=== PATIENT | female | born 1955 | race Caucasian/White ===

== ENCOUNTER 2022-04-30 07:23 | Outpatient (CLI) | payer BC, SELFPAY ==
[2022-04-30 10:29] LABS: Albumin* 4.3 g/dL (3.3-5.0); Chloride* 99 mmol/L (96-114); Potassium* 4.2 mmol/L (3.6-5.1); Sodium* 139 mmol/L (135-149)
[2022-04-30 10:32] LABS: Blood Urea Nitrogen* 20 mg/dL (7-30); Carbon Dioxide* 31 mmol/L (20-32); Estimated Glomerular Filt Rate 62 ml/min; Glucose* 106 mg/dL (60-115)
[2022-04-30 10:33] LABS: Calcium* 9.4 mg/dL (8.4-10.6); Phosphorus* 4.1 mg/dL (2.5-4.5); Uric Acid* 6.6 mg/dL (2.2-8.4)
[2022-04-30 10:34] LABS: Creatinine Urine 182.8 mg/dL
[2022-04-30 10:39] LABS: Microalbumin Creatinine Ratio 20 mg/g (0-30); Microalbumin Urine 4 mg/dL
== END 2022-04-30 07:24 | disposition home or self-care (01) ==
PROVIDERS: PCP Internal Medicine; Visit Provider Internal Medicine Nephrology
DX: N18.1 Chronic kidney disease, stage 1 (principal); I10 Essential (primary) hypertension
CPT/HCPCS: 80069; 82043; 82570; 84550

== ENCOUNTER 2022-05-13 16:31 | Outpatient (CLI) | payer BC, SELFPAY ==
--- OUTSIDE RECORDS SUMMARY | 2022-05-13 16:37 | XMS_ITS | Encounter Summary ---
:1955 Author Organization [facility] Address [address], [place] [address] Care Team Providers Name Role Phone Souleymane Dangelo MD Primary Care Provider Encounter Details Date Type Department Care Team Description 06/28/2009 [facility] [address] [address] Social History Tobacco Use Types Packs/Day Years Used Date Smoking Tobacco: Never Alcohol Use Standard Drinks/Week Comments Yes 0 (1 standard drink = 0.6 oz pure alcoho l) 1-2 drinks rarely Alcohol Habits Answer Date Recorded How often do you have a drink containing alcohol? Not asked How many drinks containing alcohol do you have on a Not aske d typical day when you are drinking? How often do you have six or more drinks on one Not asked occasion? Comment: 1-2 drinks rarely 10/06/2006 Sex Assigned at Date Recorded Not on file documented as of this encounter Plan of Treatment Upcoming Encounters Date Type Specialty Care Team Description 07/07/2022 Appointment Optometry [place] Vences ne, OD [address] [place], [place] [address] (Wo rk) documented as of this encounter Procedures Procedure Name Priority Date/Time Associated Diagnosis Comme nts MM US BREAST RT Routine 06/28/2009 8:15 AM Result s for this CDT procedure are i n the results section. documented in this encounter Results US BREAST RIGHT (06/28/2009 8:15 AM CDT) Anatomical Region Laterality Modality Breast Right Ultrasound Specimen (Source) Anatomical Collection Method Collection Time Re ceived Time Location / / Volume Laterality 06/28/2009 8:15 AM CDT Narrative 06/28/2009 10:47 AM CDT BILATERAL FULL FIELD DIGITAL DIAGNOSTIC MAMMOGRAM AND RIGHT BREAST US: 28 June 2009 INDICATION: Brownish discharge from the right breast COMPARISON: 22 June 2008, May 03, 13 April 2006. MAMMOGRAPHIC FINDINGS: Examination of th e breast is unremarkable. No masses or abnormal calcifications are seen. Ex am scanned with a computer aided device for a second interpretation. ULTRASOUND FINDINGS: Ultrasound of the r ight areola demonstrates a few microcysts and mildly prominent ducts. I am not able to identify a solid mass to account for the patient's discha rge. Ductography is recommended to be performed later this morning. IMPRESSION: ACR BI-RADS Category 0: Need Additional Imaging Evaluation and/or Prior Mammograms For Comparison. Procedure Note Tristan Overton - 06/28/2009Formattin g of this note might be different from the original. BILATERAL FULL FIELD DIGITAL DIAGNOSTIC MAMMOGRAM AND RIGHT BREAST US: 28 June 2009 INDICATION: Brownish discharge from the right breast COMPARISON: 22 June 2008, May 03, 13 April 2006. MAMMOGRAPHIC FINDINGS: Examination of th e breast is unremarkable. No masses or abnormal calcifications are seen. Ex am scanned with a computer aided device for a second interpretation. ULTRASOUND FINDINGS: Ultrasound of the r ight areola demonstrates a few microcysts and mildly prominent ducts. I am not able to identify a solid mass to account for the patient's discha rge. Ductography is recommended to be performed later this morning. IMPRESSION: ACR BI-RADS Category 0: Need Additional Imaging Evaluation and/or Prior Mammograms For Comparison. Souleymane Dangelo MD RAD SHAWNEE documented in this encounter Visit Diagnoses Not on filedocumented in this encounter Care Teams Lead Android Developer Relationship Specialty Start Date End Date Souleymane Dangelo MD PCP - General 12/27/99 11/27/[address] [place] [id number] documented as of this encounter
--- OUTSIDE RECORDS SUMMARY | 2022-05-13 16:37 | XMS_ITS | Encounter Summary ---
:1955 Author Organization [facility] Address [address], [place] [address] Care Team Providers Name Role Phone Sera Son MD Primary Care Provider Reason for Visit Reason Comments Routine Eye Exam Here for a complete eye exam . Vision is getting a little worse since her last exam. Rarely wears glasses. No other complaints. Contact Lens Vision is getting a little w orse. Comfort is good. Encounter Details Date Type Department Care Team Description 12/18/2011 Office Visit [facility], Examination of eyes and visi on (Primary Dx); [address] REYNOLD Zamora Myopia; [place] [address] [address] Astigmatism, unspecified; [phone] [place], [place] [address] Presbyopia; [phone] Tear film insuf ficiency, unspecified (Work) Social History Tobacco Use Types Packs/Day Years [...] on file documented as of this encounter Patient Instructions Patient InstructionsSera Vences OD - 12/18/2011 4:42 PM CDT Dry Eye Your eyes constantly produce tears at a slow and steady rate so that they stay moist and comfortable. Some people are not able to produce enough tears or the appropriate quality of tears to keep their eyes healthy and comfortable. This condition is known as dry eye. Symptoms of dry eye include scratchiness, stinging, itching, stringy mucus in the eyes, and blurry vision. Sometimes people with dry eye will experience excess tearing. This is the eye???s response to the discomfort from dry eye. When the eyes get irritated, the gland that makes tears releases a larger thanusual volume of tears, which overwhelm the tear drainage system. These excess tears then overflow from your eyes. Dry eye often increases with age as tear production slows. For women, this is especially true after menopause. Other factors that may predispose you to dry eye include certain medications, prolonged computer use, contact lens wear, a history of ocular surgery, and certain systemic diseases including diabetes, thyroid disease, or rheumatoid arthritis. Your eye care provider can diagnose dry eye by examining your eyes. Diagnostic drops are used to check for patterns of dryness on the eye???s surface. Sometimes specialized tests are indicated to measure tear production. Treatments for dry eye include eye drops called artificial tears to lubricate the eyes and help maintain moisture. Your eye care provider may conserve your tears by closing the channels through which your tears drain. You can also try to prevent tears from evaporating by avoiding wind and dry air. Smoking irritates dry eyes and should be avoided. Artificial Tears Artificial tears are an effective treatment for symptoms from dry and irritated eyes. It is important to use your artificial tears FREQUENTLY, before symptoms occur, especially before extended times ofreading, computer work, driving, or outdoor activities. The most common cause of continued symptoms from dry and irritated eyes is failure to use these lubricants enough to bring about and maintain adequate relief. Because these drops cannot be used too often, it is safe to increase their frequency asyour symptoms change. The usual dose is 2-4 times a day. These artificial tears can be purchased [id number] at our pharmacy and most discount stores. Use them frequently until your symptoms are controlled, or as directed by your doctor. For long-term therapy, experiment by slowly reducing the number of installations each day to determine the minimum treatment needed to keep you symptom-free. For most people, any of the following brands of artificial tear work well: Systane, Blink Tears, Refresh, Genteal, Theratears Some people are sensitive to the chemical preservatives in the drops, and need to use preservative-free tears. While more expensive, they may be better tolerated and can be used more frequently. They come in a break open vial. Once open, this vial should be kept clean (not in pocket or purse) and thrown away after 8 hours. Celluvisc, Cellufresh, Refresh Plus, Theratears A third type of lubricant is ointment or gel. While they are thicker and can blur the vision temporarily, they are usually the most effective in healing any damage to the eye's surface. Often they are placed in the eye right at bedtime to provide lubrication when sleeping, particularly if one's eyes do not close completely. Genteal gel, Blink Gel Tears, Refresh PM, Puralube For treating dry eyes, avoid products that advertise to get the red out. These have ingredients thattake the red out only temporarily but then actually increase dryness of the eyes. documented in this encounter Progress Notes Sera Vences OD - 12/18/2011 4:59 PM CDT HPI Chief Complaint Patient presents with ??? Routine Eye Exam Here for a complete eye exam. Vision is getting a little worse since her last exam. Rarely wears glasses. No other complaints. ??? Contact Lens Vision is getting a little worse. Comfort is good. History Reviewed Assessment Myopia, astigmatism, presbyopia Dry eye symptoms Plan Spectacle Prescription given Contact lens prescription provided for the patient Order CL's Return to clinic in 1 year(s) for routine and contact lens exam . Sera Vences OD documented in this encounter Plan of Treatment Upcoming Encounters Date Type Specialty Care Team Description 07/07/2022 Appointment Optometry [place] Vences, OD [address] [place], [place] [address] (Wo rk) documented as of this encounter Visit Diagnoses Diagnosis Examination of eyes and vision - Primary Myopia Astigmatism, unspecified Presbyopia Tear film insufficiency, unspecified documented in this encounter Care Teams Wearing Apparel Assembler Relationship Specialty Start Date End Date Sera Son MD PCP - General Internal Medicine [address] [place] [address] documented as of this encounter
--- OUTSIDE RECORDS SUMMARY | 2022-05-13 16:37 | XMS_ITS | Encounter Summary ---
:1955 Author Organization [facility] Address [address], [place] [address] Care Team Providers Name Role Phone Sera Son MD Primary Care Provider Reason for Visit Reason Comments Routine Eye Exam Contact Lens Forms Encounter Details Date Type Department Care Team Description 10/24/2019 Office Visit [facility] RuKojo lugo for eye and vision exa m (Primary Dx); [address] Sera, OD Myopia, bilateral; [place] [address] [address] Regular astigmatism, bilateral; [phone] [place], [place] [address] Presbyopia; [phone] Combined forms of age-related cataract of both eyes (Work) Social History Tobacco Use Types Packs/Day Years Used Date Smoking Tobacco: Never Smokeless Tobacco: Never Alcohol Use Standard Drinks/Week Comments Not Asked 0 (1 standard drink = 0.6 oz [...] of this encounter Patient Instructions Patient InstructionsSera Vences, OD - 10/24/2019 10:40 AM CST Cataracts and cataract surgery A cataract is a clouding of the lens of the eye. This change is very common and usually related to aging. The eye works like a camera. A cloudy lens will make the ???pictures?? blurred. The main treatment for cataract is surgery. The time for surgery is when vision interferes with daily activities enough to warrant the risks of surgery. Until that time, patients can live with their vision as it is or try a new eyeglass prescription. Most people have plenty of time to decide about surgery. Your doctor cannot decide for you. Examples of the problems that cataract might cause include difficulty reading the newspaper, troublewith glare when driving at night, or blurry vision with a hobby or other pastime. A decision for surgery would follow a discussion of the risks, benefits, potential complications andalternatives with your sand caster apprentice. Fortunately, complications from cataract surgery are relatively uncommon, but certainly risk can occur, such as bleeding, swelling, infection, irregular appearance of the pupil, the need for more surgery, loss of vision, and complications of anesthesia. Surgery is usually done as an outpatient (you go home the same day). Typically patients are at the surgery between 2 and 3 hours ???door to door?? . Of that time about 30 minutes is spent in the operating room. Following surgery, eye drops are prescribed for a few weeks to assist in healing. When thehealing is stable, a measurement is made for new glasses. Surgery is only done for 1 eye at a time. Cataract surgery is usually a very successful operation. More than one million people have this procedure every year in the [place] , and 95% have a successful result. Helpful Websites: http://www.nei.nih.gov/health http://www.eyesurgeryeducation.com/ ER OFF documented in this encounter Progress Notes Sera Vences, OD - 10/24/2019 10:40 AM CST Chief Complaint Patient presents with ??? Routine Eye Exam ??? Contact Lens ??? Forms HPI SUKI 09/2018 Dr Vences. Gls 1yr old- VA is ok. She does not wear often. No eye pain. Gel tears at night. Aware of 50 fee. VA is stable. Comfort is good. Orders with [employer]. She has form for insurance that needs to be filled out today. Last edited by Mayela Guerrero COA on 10/24/2019 10:55 AM. (History) History Reviewed Assessment Myopia, astigmatism, presbyopia Cataracts OU not visually significant Plan Spectacle Prescription given Contact lens prescription provided for the patient Return to clinic in 1 year(s) for routine and contact lens exam . Sera Vences OD ER OFF documented in this encounter Plan of Treatment Upcoming Encounters Date Type Specialty Care Team Description 07/07/2022 Appointment Optometry [place] Vences, OD [address] [place], [place] [address] (Wo rk) documented as of this encounter Visit Diagnoses Diagnosis Visit for eye and vision exam - Primary Examination of eyes and vision Myopia, bilateral Myopia Regular astigmatism, bilateral Presbyopia Combined forms of age-related cataract o f both eyes Other and combined forms of senile catar act documented in this encounter Care Teams Strategy Director Relationship Specialty Start Date End Date Sera Son MD PCP - General Internal Medicine [address] [place] [address] documented as of this encounter
--- OUTSIDE RECORDS SUMMARY | 2022-05-13 16:37 | XMS_ITS | Encounter Summary ---
:1955 Author Organization [facility] Address [address], [place] [address] Care Team Providers Name Role Phone Souleymane Dangelo MD Primary Care Provider Encounter Details Date Type Department Care Team Description 06/28/2009 [facility] [address] [address] Social History Tobacco Use Types [...] Vences ne, OD [address] [place], [place] [address] (Wo rk) documented as of this encounter Procedures Procedure Name Priority Date/Time Associated Diagnosis Comme nts MM MAMMOGRAM DIAG Routine 06/28/2009 7:41 AM Resu lts for this BILAT CDT procedure are i n the results section. documented in this encounter Results MAMMOGRAM DIAGNOSTIC BILATERAL (06/28/2009 7:41 AM CDT) Anatomical Region Laterality Modality Breast Bilateral Mammography Specimen (Source) Anatomical Location Collection Method / Collectio n Time Received Time / Laterality Volume Narrative 06/28/2009 10:46 AM CDT Diagnostic Mammo was performed on the same day and is included on the Breast Ultrasound report. Procedure Note Tristan Overton - 06/28/2009Formattin g of this note might be different from the original. Diagnostic Mammo was performed on the and is included on the Breast Ultrasound report. Souleymane Dangelo MD RAD [facility] documented in this encounter Visit Diagnoses Not on filedocumented in this encounter Care Teams Staking Press Operator Relationship Specialty Start Date End Date Souleymane Dangelo MD PCP - General 12/27/99 11/27/[address] [place] [id number] documented as of this encounter
--- OUTSIDE RECORDS SUMMARY | 2022-05-13 16:37 | XMS_ITS | Encounter Summary ---
:1955 Author Organization [facility] Address [address] [place] [address] Care Team Providers Name Role Phone Sera Son MD Primary Care Provider Reason for Visit Reason Comments CONTACTS,RE-EVALUATION patient is aware of $50.00 s ervice fee, no complaints regarding her distance visio n, comfort of contacts is good Encounter Details Date Type Department Care Team Description 12/21/2012 Office Visit [facility], Examination of eyes and visi on (Primary Dx); [address] Sera, REYNOLD Myopia; [place] [address] Astigmatism, unspecified; [phone] [place], [place] [address] Presbyopia Social History Tobacco Use Types Packs/Day Years [...] this encounter Patient Instructions Patient InstructionsSera Vences, REYNOLD - 12/21/2012 6:58 PM CDT Thank you for choosing [facility] for your eye care needs. Many tests were done to check your eye health today including: pupil reaction, eye muscle function, peripheral (side) vision, visual acuity, and eye pressure. The health of your eyes was also checked, both on the outside as well as the inside of each eye. Your eyeglass prescription or contact prescription may have also been updated. Early detection of eye health problems is important to keep your eyes healthy over your lifetime. Atyour eye exam we are looking for signs of glaucoma, diabetes, high blood pressure, cataract, dry eye, eye allergies, and many other conditions. Frequently Asked Questions: Why do you use eye drops? We use a clear drop to dilate, or open the pupil wider. This allows us to have a clearer, wider view inside the eye to look for signs of eye disease. We use a different eye drop to check the pressure inside the eye; this is usually the yellow eye drop. How long will my eyes be blurry today? Your vision will be blurry up close for about an hour, and your eyes will stay dilated for about 4 hours. You will need to wear sunglasses when you are outside today. If you do not have any sunglasses with you, there are some disposable ones available. Please usecaution in getting around for the few hours that your eyes are dilated. How can I contact the clinic in the future? Appointment Center: [phone] Eye Dept: [phone] Online Services: [email or web address] For after hours care, call the CareLine at [phone] or . We look forward to taking care of your eye care needs in the years to come. documented in this encounter Progress Notes Sera Vences, OD - 12/21/2012 6:58 PM CDT HPI Chief Complaint Patient presents with ??? CONTACTS,RE-EVALUATION patient is aware of $50.00 service fee, no complaints regarding her distance vision, comfort of contacts is good History Reviewed Assessment Myopia, astigmatism, presbyopia Ocular health normal Plan Spectacle Prescription given Contact lens prescription provided for the patient Order CL's - direct ship Return to clinic in 1 year(s) for routine and contact lens exam . Sera Vences OD documented in this encounter Plan of Treatment Upcoming Encounters Date Type Specialty Care Team Description 07/07/2022 Appointment Optometry [place]ences, OD [address] [place], [place] [address] (Wo rk) documented as of this encounter Visit Diagnoses Diagnosis Examination of eyes and vision - Primary Myopia Astigmatism, unspecified Presbyopia documented in this encounter Care Teams Block Engraver Relationship Specialty Start Date End Date Sera Son MD PCP - General Internal Medicine [address] [place] [address] documented as of this encounter
--- OUTSIDE RECORDS SUMMARY | 2022-05-13 16:37 | XMS_ITS | Encounter Summary ---
:1955 Author Organization [facility] Address [address], [place] [address] Care Team Providers Name Role Phone Sera Son MD Primary Care Provider Reason for Visit Reason Comments Future Appointments Encounter Details Date Type Department Care Team Description 04/24/2021 Telephone [facility] Sera Vences, Future Appointments [address] [place] [address] [address] [phone] [place], [place] [address] (Wo rk) Social History Tobacco Use Types Packs/Day Years [...] on file documented as of this encounter Nursing Notes Marv Cerna - 04/24/2021 1:53 PM CDT PT scheduled for recheck. Marv Cerna Estefany Toledo - 04/24/2021 1:48 PM CDT Appointments - Eye Appointment Why does this appointment not meet the patient's needs? Would like to be seen sooner. Estefany Toledo Please route to: [facility] Assistant Professor Of Philosophy/General Pool documented in this encounter Plan of Treatment Upcoming Encounters Date Type Specialty Care Team Description 07/07/2022 Appointment Optometry [place] Vences ne, OD [address] [place], [place] [address] (Wo rk) documented as of this encounter Visit Diagnoses Not on filedocumented in this encounter Care Teams C Consultant Relationship Specialty Start Date End Date Sera Son MD PCP - General Internal Medicine [address] [place] [address] documented as of this encounter
--- OUTSIDE RECORDS SUMMARY | 2022-05-13 16:37 | XMS_ITS | Encounter Summary ---
:1955 Author Organization [facility] Address [address] [place] [address] Care Team Providers Name Role Phone Sera Son MD Primary Care Provider Reason for Visit Reason Comments Routine Eye Exam SUKI 10/2016 Dr Vences. Gls a re very old- not with her today- thinking of getting new ones this year. No eye pain. Gel tears at night. Contact Lens SUKI 12/2015.Aware of fees. VA is stable. Comfort is good. Encounter Details Date Type Department Care Team Description 11/03/2017 Office Visit [facility], Visit for eye and vision exa m (Primary Dx); [address] Sera, OD Myopia, bilateral; [place] [address] Regular astigmatism, bilateral; [phone] [place], [place] [address] Presbyopia; [phone] Cortical age-re lated cataract of both eyes (Work) Social History [...] as of this encounter Patient Instructions Patient InstructionsSpBeckie guevaraine, OD - 11/03/2017 1:30 PM CST Cataracts and cataract surgery A cataract [...] risks, benefits, potential complications andalternatives with your spud sorter. Fortunately, complications from cataract surgery are relatively [...] a successful result. Helpful Websites: http://www.nei.nih.gov/health http://www.eyesurgeryeducation.com/ UNDERWRITER documented in this encounter Progress Notes Sera Vences, OD - 11/03/2017 2:34 PM CST HPI Chief Complaint Patient presents with ??? Routine Eye Exam SUKI 10/2016 Dr Vences. Gls are very old- not with her today- thinking of getting new ones this year. No eye pain. Gel tears at night. ??? Contact Lens SUKI 12/2015.Aware of fees. VA is stable. Comfort is good. History Reviewed Assessment Myopia, astigmatism, presbyopia Cataracts OU not visually significant Plan Spectacle Prescription given Contact lens prescription provided for the patient Return to clinic in 1 year(s) for routine eye exam . Sera Vences, REYNOLD UNDERWRITER Mayela Guerrero - 11/03/2017 1:30 PM CST 1:40 PM UNDERWRITER documented in this encounter Plan of Treatment Upcoming Encounters Date Type Specialty Care Team Description 07/07/2022 Appointment Optometry [place] Vences ne, OD [address] [place], [place] [address] (Wo rk) documented as of this encounter Visit Diagnoses Diagnosis Visit for eye and vision exam - Primary Examination of eyes and vision Myopia, bilateral Myopia Regular astigmatism, bilateral Presbyopia Cortical age-related cataract of both ey es Cortical senile cataract documented in this encounter Care Teams Educational Program Director Relationship Specialty Start Date End Date Sera Son MD PCP - General Internal Medicine [address] [place] [address] documented as of this encounter
--- OUTSIDE RECORDS SUMMARY | 2022-05-13 16:37 | XMS_ITS | Encounter Summary ---
:1955 Author Organization [facility] Address [address] [place] [address] Care Team Providers Name Role Phone Sera Son MD Primary Care Provider Reason for Visit Reason Comments Routine Eye Exam SUKI 12/2015 Dr bobby. Gls a re a very old rx- does not wear often. Uses Gel tears 1x/night as s he remembers. Contact Lens Aware of fee. [facility] seems stabl e. Feels fit might be off with LFT eye- doesnt feel right. Orders wi th HP- she will need to order. Encounter Details Date Type Department Care Team Description 10/28/2016 Office Visit [facility], Visit for eye and vision exa m (Primary Dx); [address] Sera, OD Myopia, bilateral; [place] [address] Regular astigmatism, bilateral; [phone] [place], [place] [address] Presbyopia Social History Tobacco [...] as of this encounter Patient Instructions Patient InstructionsSpSera guevara, OD - 10/28/2016 8:23 PM CST Thank you for choosing [facility] for your eye care needs. Many tests [...] the clinic in the future? Appointment Center: [phone] Eye Dept: [phone] Online Services: [email or web address] For after hours care, call the CareLine at [phone] or . We look forward to taking care of your eye care needs in the years to come. ECTOR RAW QUARTZ documented in this encounter Progress Notes Sera Bobby, OD - 10/28/2016 8:23 PM CST HPI Chief Complaint Patient presents with ??? Routine Eye Exam SUKI 12/2015 Dr bobby. Gls are a very old rx- does not wear often. Uses Gel tears 1x/night as she remembers. ??? Contact Lens Aware of fee. [facility] seems stable. Feels fit might be off with LFT eye- doesnt feel right. Orders with HP- she will need to order. History Reviewed Assessment Myopia, astigmatism, presbyopia Dry eye symptoms Plan Spectacle Prescription given Discussed option of trying different CL - patient prefers to stay with these for now so CL Rx was not updated - patient aware of expiration in 12/30 Order CL's Return to clinic in 1 year(s) for routine and contact lens exam . Sera Bobby, REYNOLD ECTOR RAW QUARTZ Mayela Guerrero - 10/28/2016 12:41 PM CST 12:41 PM ECTOR RAW QUARTZ documented in this encounter Plan of Treatment Upcoming Encounters Date Type Specialty Care Team Description 07/07/2022 Appointment Optometry [place] Bobby ne, OD [address] [place], [place] [address] (Wo rk) documented as of this encounter Visit Diagnoses Diagnosis Visit for eye and vision exam - Primary Examination of eyes and vision Myopia, bilateral Myopia Regular astigmatism, bilateral Presbyopia documented in this encounter Care Teams Director Day Care Center Relationship Specialty Start Date End Date Sera Son MD PCP - General Internal Medicine 11/28/[address] [place] [address] documented as of this encounter
--- OUTSIDE RECORDS SUMMARY | 2022-05-13 16:37 | XMS_ITS | Encounter Summary ---
:1955 Author Organization [facility] Address [address] [place] [address] Care Team Providers Name Role Phone Souleymane Dangelo MD Primary Care Provider Reason for Visit Reason Comments Contact Lens update rx for contacts, [facility] no problems Encounter Details Date Type Department Care Team Description 12/09/2007 Office Visit [facility], Examination of Eyes and Visi on (Primary Dx); [address] Sera, OD Myopia; [place] [address] Presbyopia [phone] [place], [place] [address] Social History Tobacco Use Types Packs/Day Years [...] on file documented as of this encounter Progress Notes Sera Vences - 12/09/2007 1:04 PM CDT HPI Chief Complaint Patient presents with ??? Contact Lens update rx for contacts, [facility] good no problems History Reviewed Today's rooming note, PMH, ROS, Family History, Social History, Surgical History, Meds, Allergies, Vitals and Relevant Results Assessment Myopia, astigmatism, presbyopia Ocular health normal See Documentation Flowsheets and/or Summary Report Plan Spectacle Prescription: see script Contact lens prescription: see script Order CL's Return to clinic in 1 year(s) Sera Vences, REYNOLD documented in this encounter Plan of Treatment Upcoming Encounters Date Type Specialty Care Team Description 07/07/2022 Appointment Optometry Los Vences ne, OD [address] [place], [place] [address] (Wo rk) documented as of this encounter Visit Diagnoses Diagnosis Examination of eyes and vision - Primary Myopia Presbyopia documented in this encounter Care Teams Web Merchandiser Relationship Specialty Start Date End Date Souleymane Dangelo MD PCP - General 12/27/99 11/27/[address] [place] [address] documented as of this encounter
--- OUTSIDE RECORDS SUMMARY | 2022-05-13 16:37 | XMS_ITS | Encounter Summary ---
:1955 Author Organization [facility] Address [address], [place] [address] Care Team Providers Name Role Phone Souleymane Dangelo MD Primary Care Provider Reason for Referral Specialty Diagnoses / Procedures Referred By Contact Refer albino To Contact Souleymane Dangelo MD [address] [place], [place] [address] Referral ID Status Reason Start Date Expiration Date Visits Requ ested Visits Authorized PM Reason for Visit Reason Comments NECK PAIN x several months Encounter Details Date Type Department Care Team Description 07/26/2007 Office Visit [place] Souleymane Dangelo, Neck Pain (Primary Dx); Practice Menstrual Periods Irregular [address] [place] [address] [address] [phone] [place] [address] (Wo rk) Social History Tobacco Use Types [...] on file documented as of this encounter Last Filed Vital Signs Vital Sign Reading Time Taken Comments Blood Pressure 112/80 07/26/2007 3:54 PM ERP PM Pulse 72 07/26/2007 3:54 PM ERP PM Temperature - - Respiratory Rate - - Oxygen Saturation - - Inhaled Oxygen Concentration - - Weight 76.1 kg (167 lb 12.8 oz) 07/26/2007 3:54 PM ERP PM Height - - Body Mass Index 26.48 10/06/2006 1:20 PM ERP PM documented in this encounter Progress Notes Souleymane Dangelo - 07/26/2007 5:51 PM CST Neck pain Amy Nicole is a 52 yr old female with several months of R lateral neck pain and stiffness. Worse when moving neck. There is no prior history of this. There was no injury. No history of surgery. Denies radicular symptoms including arm numbness, paresthesias, or weakness. Denies other neurologicor musculoskeletal symptoms. Does have some occ R arm pain when lifting mostly in wrist. OBJECTIVE: Holding neck stiffly BP 112/80 Pulse 72 Wt 167 lb 12.8 oz (76.11 kg) Neck: stiff with reduced range of motion due to pain, no vertebral tenderness, tender along lateral neck musculature. Back: normal Upper ext: strength, sensation, DTRs normal ASSESSMENT: Cervical muscle strain PLAN: diazepam, ice. Symptomatic care, expectant management. PT. Also notes that she has been having irregular periods for the last year. Bleeding lasts normal amount but interval ranges from 18 days to 5 months. No other symptoms. Discussed nature of perimenopause. Will check TSH. Offered pelvic us but don't think it's neccesary. She will wait. Souleymane Dangelo MD PM documented in this encounter Plan of Treatment Upcoming Encounters Date Type Specialty Care Team Description 07/07/2022 Appointment Optometry Los Vences, OD [address] [place], [place] [address] (Wo rk) documented as of this encounter Procedures Procedure Name Priority Date/Time Associated Diagnosis Comme nts TSH, SENSITIVE Routine 07/26/2007 4:33 PM Menstrual Periods Re sults for this (WITH REFLEX) ERP PM Irregular procedure are in the results section. documented in this encounter Results TSH, SENSITIVE (WITH REFLEX) [[id number]] (07/26/2007 4:33 PM ERP PM) P athologist Signature TSH, with 3.23 0.3 - 5.0 [facility] Reflex uIU/ml Specimen Anatomical Collection Method Collection Time Receive d Time (Source) Location / / Volume Laterality 07/26/2007 4:33 PM 7 4:34 ERP PM PM ERP PM Souleymane Dangelo MD LAB_1 Performing Organization Address City/State/ZIP Code Phon e Number [facility] [phone] [address] documented in this encounter Visit Diagnoses Diagnosis Neck pain - Primary Cervicalgia Menstrual periods irregular Irregular menstrual cycle documented in this encounter Care Teams Universal Grinder Set Up Operator Relationship Specialty Start Date End Date Souleymane Dangelo MD PCP - General 12/27/99 11/27/[address] [place] [address] documented as of this encounter
--- OUTSIDE RECORDS SUMMARY | 2022-05-13 16:37 | XMS_ITS | Encounter Summary ---
:1955 Author Organization [facility] Address [address], [place] [address] Care Team Providers Name Role Phone Souleymane Dangelo MD Primary Care Provider Reason for Referral Specialty Diagnoses / Procedures Referred By Contact Refer red To Contact Souleymane Dangelo MD [address] [facility] [place], [place] [address] Referral ID Status Reason Start Date Expiration Date Visits Requ ested Visits Authorized Reason for Visit Reason Comments MEMORY,LOSS OF SLEEP,DISTURBANCE MULTIPLE PROBLEMS bad breath, irregular bowel prob, weight gain, vaginal wetness, heartburn, cramping and irre gular periods Encounter Details Date Type Department Care Team Description 04/12/2008 Office Visit [facility] Souleymane Dangelo, King ry Disturbance (Primary Dx); Practice Breast Screening, Unspecified; [address] [facility] Anxiety State, [place] [address] [address] [phone] [place], [place] [id number] (Wo rk) Social History Tobacco Use Types [...] Sign Reading Time Taken Comments Blood Pressure 130/84 04/12/2008 11:14 AM CDT Pulse 64 04/12/2008 11:14 AM CDT Temperature - - Respiratory Rate - - Oxygen Saturation - - Inhaled Oxygen Concentration - - Weight 73.5 kg (162 lb) 04/12/2008 11:14 AM CDT Height 168.9 cm (5' 6.5) 04/12/2008 11:14 AM CDT Body Mass Index 25.76 04/12/2008 11:14 AM CDT documented in this encounter Progress Notes Souleymane Dangelo - 04/12/2008 4:40 PM CDT This office note has been dictated. Souleymane Dangelo - 04/12/2008 12:00 AM CDT PROBLEM: Memory loss. SUBJECTIVE: The patient is here because she is worried she may be having some memory problems. Notes specifically that she has noted occasional difficulty finding the right word once but only once she forgot her phone number momentarily. Has not been misplacing things. Has not been forgetting names. No one else has seemed to notice that there is a problem or brought anything up about it. She is just concerned about it herself. She denies any other HEENT or neurologic symptoms. Denies any thyroid symptoms except for irregular menses which may be due to perimenopausal things rather than anything and irregular bowels with occasional cramping. FAMILY HISTORY: There is no family history of dementia or stroke. There is no past medical history of hypertension, diabetes or any vascular risk factors. She is a nonsmoker. OBJECTIVE: On exam, she is a 53-year-old NAD. Vitals are listed on Epic on the nursing note and are all normal. TMs are clear. PERRLA. EOMI. Fundi are normal. Disks are sharp. Oropharynx is benign. Neck supple without adenopathy. Heart: Regular rate and rhythm. Lung clear. Abdomen is benign. Extremities without cyanosis, clubbing or edema. Skin is normal. Neurologic exam is normal including cranial nerves. She is alert and oriented. Reflexes are normal. Romberg is normal. Strength and sensation are normal upper and lower extremities. Mini-Mental State Exam was done and she scored 30/30. No definite evidence of memory problem or any kind of neurologic abnormality on my exam. PLAN: We will check labs as ordered. If all are normal, if she still remains concerned, we could have a consultation with Neurology but we would probably more likely just proceed with reassurance at that point. P cc: documented in this encounter Plan of Treatment Upcoming Encounters Date Type Specialty Care Team Description 07/07/2022 Appointment Optometry Los Vences, OD [address] [place], [place] [address] (Wo rk) Scheduled Referrals Name Type Priority Associated Diagnoses Order S chedule Mammo Screening Referral Routine Breast Screening, Unspeci fied Ordered: 04/12/2008 documented as of this encounter Procedures Procedure Name Priority Date/Time Associated Diagnosis Comme nts FOLATE, RBC Routine 04/12/2008 11:59 AM Memory Disturbance Re sults for this CDT procedure are i n the results section. COMPLETE BLOOD Routine 04/12/2008 11:59 AM Memory Disturbance Results for this COUNT-NO DIFF CDT procedure are in the results section. RPR (SYPHILIS Routine 04/12/2008 11:59 AM Memory Disturbance R esults for this SCREEN) CDT procedure are i n the results section. TSH, SENSITIVE Routine 04/12/2008 11:59 AM Memory Disturbance Results for this (WITH REFLEX) CDT procedure are in the results section. VITAMIN B12 ONLY Routine 04/12/2008 11:59 AM Memory Disturbanc e Results for this CDT procedure are i n the results section. documented in this encounter Results HEMOGRAM/PLTS (04/12/2008 11:59 AM CDT) P athologist Signature WBC 8.2 4.0 - 11.0 [facility] k/ul RBC 4.35 4.0 - 5.2 [facility] M/ul Hemoglobin 13.4 12.0 - 16.0 [facility] g/dl HCT 39.1 36.0 - 46.0 [facility] % MCV 89.9 80 - 100 fl [facility] MCH 30.8 26 - 34 pg [facility] MCHC 34.3 32 - 36 % [facility] RDW 12.8 11.5 - 14.5 [facility] % Platelets 384 150 - 450 [facility] k/ul Specimen Anatomical Collection Method Collection Time Receive d Time (Source) Location / / Volume Laterality 04/12/2008 11:59 04/12/2008 AM CDT 12:06 PM CDT Souleymane Dangelo MD LAB_1 Performing Organization Address [facility] Phon e Number [facility] [phone] [address] RPR (SYPHILIS SCREEN) (04/12/2008 11:59 AM CDT) Patholo gist Method Time Signature Syphilis Non-React NR [facility] Screen(RPR) sandra Specimen Anatomical Collection Method Collection Time Receive d Time (Source) Location / / Volume Laterality 04/12/2008 11:59 04/12/2008 AM CDT 12:06 PM CDT Souleymane Dangelo MD LAB_1 Performing Organization Address [facility] Code Phon e Number [facility] [phone] [phone] FOLATE, RBC (04/12/2008 11:59 AM CDT) P athologist Signature Folate,RBC 635 >280 ng/ml [facility] Specimen Anatomical Collection Method Collection Time Receive d Time (Source) Location / / Volume Laterality 04/12/2008 11:59 04/12/2008 AM CDT 12:06 PM CDT Souleymane Dangelo MD LAB_1 Performing Organization Address [facility]/ZIP Code Phon e Number [facility] [phone] [phone] B12 ONLY (4 HR FAST RECOMMENDE (04/12/2008 11:59 AM CDT) athologist Signature Vitamin B12 449 211 - 911 [facility] pg/ml Specimen Anatomical Collection Method Collection Time Receive d Time (Source) Location / / Volume Laterality 04/12/2008 11:59 04/12/2008 AM CDT 12:06 PM CDT Souleymane Dangelo MD LAB_1 Performing Organization Address [facility]/ZIP [facility] Phon e Number [facility] [phone] [facility] [address] [place] [address] TSH, SENSITIVE (WITH REFLEX) (04/12/2008 11:59 AM CDT) athologist Signature TSH, with 2.53 0.3 - 5.0 [facility] Reflex uIU/ml Specimen Anatomical Collection Method Collection Time Receive d Time (Source) Location / / Volume Laterality 04/12/2008 11:59 04/12/2008 AM CDT 12:06 PM CDT Souleymane Dangelo MD LAB_1 Performing Organization Address [facility] Phon e Number [facility] [phone] [facility] [address] [place] [address] documented in this encounter Visit Diagnoses Diagnosis Memory disturbance - Primary Memory loss Breast screening, unspecified Anxiety state, unspecified ([facility]) Anxiety state, unspecified documented in this encounter Care Teams Medical Assistant Ob Gyn Relationship Specialty Start Date End Date Souleymane Dangelo MD PCP - General 12/27/99 11/27/[address] [place] [address] documented as of this encounter
--- OUTSIDE RECORDS SUMMARY | 2022-05-13 16:37 | XMS_ITS | Encounter Summary ---
:1955 Author Organization [facility] Address [address], [place] [address] Care Team Providers Name Role Phone Souleymane Dangelo MD Primary Care Provider Encounter Details Date Type Department Care Team Description 06/28/2009 [facility] [address] [address] Social History Tobacco Use Types [...] Vences ne, OD [address] [place], [place] [address] (Wo rk) documented as of this encounter Procedures Procedure Name Priority Date/Time Associated Diagnosis Comme nts MM DUCTOGRAM RT Routine 06/28/2009 8:42 AM Result s for this CDT procedure are i n the results section. documented in this encounter Results MAMMO DUCTOGRAM RIGHT (06/28/2009 8:42 AM CDT) Anatomical Region Laterality Modality Breast Right Mammography Specimen (Source) Anatomical Collection Method Collection Time Re ceived Time Location / / Volume Laterality 06/28/2009 8:42 AM CDT Narrative 06/28/2009 12:03 PM CDT Right breast ductogram: 28 June 2009 Indication: Bloody discharge from the ri t breast. Technique: The nipple was cleansed with chloro prep. A blunt tipped 27-gauge needle was placed into the duct with the bloody discharge and 0.5 cc Ultravist 300 were injected. Mammogra phy obtained in the CC and ML projection. Findings: Examination demonstrates the d uctal system to be well filled. There are multiple small microcysts pres ent. No evidence for an intraluminal filling defect. 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 Impression: ACR BI-RADS Category 2: Hayder gn Findings. Procedure Note Tristan Overton H - 06/28/2009Formattin g of this note might be different from the original. Right breast ductogram: 28 June 2009 Indication: Bloody discharge from the ri t breast. Technique: The nipple was cleansed with chloro prep. A blunt tipped 27-gauge needle was placed into the duct with the bloody discharge and 0.5 cc Ultravist 300 were injected. Mammogra phy obtained in the CC and ML projection. Findings: Examination demonstrates the d uctal system to be well filled. There are multiple small microcysts pres ent. No evidence for an intraluminal filling defect. 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 Impression: ACR BI-RADS Category 2: Hayder gn Findings. Souleymane Dangelo MD RAD [place] documented in this encounter Visit Diagnoses Not on filedocumented in this encounter Care Teams Feed And Farm Management Adviser Relationship Specialty Start Date End Date Souleymane Dangelo MD PCP - General 12/27/99 11/27/10 [address] [place] [address] documented as of this encounter
--- OUTSIDE RECORDS SUMMARY | 2022-05-13 16:37 | XMS_ITS | Encounter Summary ---
:1955 Author Organization [facility] Address [address], [place] [address] Care Team Providers Name Role Phone Sera Son MD Primary Care Provider Encounter Details Date Type Department Care Team Description 07/08/2011 [facility] [address] [address] Social History Tobacco Use Types [...] Vences ne, OD [address] [place], [place] [address] (Wo rk) documented as of this encounter Procedures Procedure Name Priority Date/Time Associated Diagnosis Comme nts MM MAMMOGRAM Routine 07/08/2011 1:21 PM Results f or this SCREENING BILAT W CDT procedure are in CAD the results section. documented in this encounter Results MAMMOGRAM SCREENING BILATERAL (07/08/2011 1:21 PM CDT) Anatomical Region Laterality Modality Breast Bilateral Mammography Specimen (Source) Anatomical Location Collection Method / Collectio n Time Received Time / Laterality Volume Narrative 07/08/2011 4:24 PM CDT BILATERAL FULL FIELD DIGITAL SCREENING MAMMOGRAM Performed on 07/08/2011 Comparison: MAMMOGRAM SCREENING W/CAD BI LAT 07/04/10, MAMMOGRAM DIAGNOSTIC BILATERAL 06/28/09 and MAMMOGRAM SCREENI NG BILATERAL 06/22/08. Findings: The breasts have scattered fib roglandular densities. There is no radiographic evidence of malignancy.This study was evaluated with the assistance of Computer-Aided Detection. ??Repeat routine screening mammogram in one year is recommended. ACR BI-RADS Category 1: Negative Procedure Note [place]ika [place] S - 07/08/2011 BILATERAL FULL FIELD DIGITAL SCREENING M AMMOGRAM Performed on 07/08/2011 Comparison: MAMMOGRAM SCREENING W/CAD BI LAT 07/04/10, MAMMOGRAM DIAGNOSTIC BILATERAL 06/28/09 and MAMMOGRAM SCREENING BILATERAL 06/22/08. Findings: The breasts have scattered fib roglandular densities. There is no radiographic evidence of malignancy.This study was evaluated with the assistance of Computer-Aided Detection. Repeat routine screening mammogram in one year is recommended. ACR BI-RADS Category 1: Negative Sera Son MD RAD SHAWNEE documented in this encounter Visit Diagnoses Not on filedocumented in this encounter Care Teams Television Technician Relationship Specialty Start Date End Date Sera Son MD PCP - General Internal Medicine 11/28/[address] [place] [address] documented as of this encounter
--- OUTSIDE RECORDS SUMMARY | 2022-05-13 16:37 | XMS_ITS | Clinical Summary ---
:1955 Author Organization [facility] Address [address], [place] [address] Care Team Providers Name Role Phone Sera Son MD Primary Care Provider Source Comments You are receiving this document as you are listed as the primary care provider,follow-up provider, or the patient has been referred to you for consultation.This is in compliance with the Medicare and Medicaid EHR Incentive Program,which states Providers who transition their patient to another setting of careor provider of care or refers their patient to another provider of care shouldprovide summarycare record for each transition of care or referral. [facility] Allergies No known active allergies Medications Medication Sig Dispensed Refills Start Date End Date Status MULTIPLE VITAMIN TABS 1 tab qd 0 01/30/2003 Active OR ZYRTEC 10 MG OR One by mouth 15 0 10/07/2006 Active TABSIndications: every day Allergic rhinitis, cause unspecified Additional Information Patient not taking. Reported on 10/01/2018 ASPIRIN 81 MG OR CHEW Take one tablet by 0 Active mouth every day. simvastatin (AKA ZOCOR) 20 MG tablet Take 20 mg by mouth 0 Active daily at bedtime. losartan (AKA COZAAR) 50 MG tablet Take 50 mg by mouth 0 Active daily. irbesartan (AKA AVAPRO) 75 MG tablet Take 75 mg by mouth 0 Active every evening. Cetirizine HCl (ZYRTEC OR) 0 Active Multiple Vitamins-Calcium (ONE-A-DAY 0 Active WOMENS FORMULA OR) omega-3 fatty acids (FISH OIL) 1000 Take 2 g by mouth 0 Active MG capsule daily. Artificial Tear (TEARS AGAIN NIGHT & 0 Active DAY) 2-0.1 % BUSPIRONE HCL OR 0 Act sandra PARoxetine (AKA PAXIL) 20 MG tablet 0 09/2015 Active fluticasone (AKA FLONASE) 50 MCG/ACT 11 Active nasal solution hydrochlorothiazide 12.5 MG capsule 2 10/15 Active Active Problems No known active problems Immunizations Name Administration Dates Next Due Flu Vac (3+ yrs) 07/08/2006 Influenza, Unspecified Formulation 06/14/2008, 07/19/2007 Td 02/12/2002 Family History Medical History Relation Name Comments Coronary Artery Disease Father other re latives as well. - dad 1st [place] age 38 Other Father idiopathic inter stitial fibrosis (lung)- 4 siblings also have or d of it. Cataract Mother Hypertension Mother Thyroid Disorder Mother hypothyroid, al so aunt Cancer, Breast Other mat. aunt Cancer, Colon Other GM Glaucoma Negative Family History Macular Degeneration Negative Family History Relation Name Status Comments Father Mother Other Social History Tobacco Use Types Packs/Day Years [...] Assigned at Date Recorded Not on file Last Filed Vital Signs Vital Sign Reading Time Taken Comments Blood Pressure 110/68 10/23/2008 11:33 AM CERTIFIED FORKLIFT OPERATOR Pulse 76 10/23/2008 11:33 AM CERTIFIED FORKLIFT OPERATOR Temperature 36.7 ??C (98.1 ??F) 10/23/2008 11:33 AM CERTIFIED FORKLIFT OPERATOR Respiratory Rate 12 10/23/2008 11:33 AM CERTIFIED FORKLIFT OPERATOR Oxygen Saturation - - Inhaled Oxygen Concentration - - Weight 74.4 kg (164 lb) 10/23/2008 11:33 AM CERTIFIED FORKLIFT OPERATOR Height 168.9 cm (5' 6.5) 04/12/2008 11:14 AM CDT Body Mass Index 26.07 04/12/2008 11:14 AM CDT Plan of Treatment Upcoming Encounters Date Type Specialty Care Team Description 07/07/2022 Appointment Optometry [place] ne, OD [address] [place] [address] (Wo rk) Health Maintenance Due Date Last Done Comments Colonoscopy 1955 Hep C Screening (Preventive 1955 Services) COVID-19 Vaccine (#1) 1955 Adult Preventive Visit 10/06/2007 10/06/2006, 05/08/2004, 01/30/2003, Additional history exists Cholesterol 07/16/2011 07/16/2006, 03/23/2001 Mammogram 07/15/2013 07/15/2012, 07/08/2011, 07/04/2010, Additional history exists Zoster/Shingles (3 of 3) 06/26/2020 05/01/2020, 10/29/2016 Dexa 01/18/2021 Pneumococcal 65+ Yrs (2 - 03/05/2022 03/05/2021 PPSV23) Influenza (#1) 2022 06/21/2020, 06/23/2019, 06/15/2018, Additional history exists DTaP/Tdap/Td (2 - Tdap) 08/23/2022 08/23/2012, 02/12/2002 HepA Aged Out No longer eligib le based on patient 's age to complete this topic HepB Aged Out No longer eligib le based on patient 's age to complete this topic Hib Aged Out No longer eligib le based on patient 's age to complete this topic IPV ([place]) Aged Out No longer eligib le based on patient 's age to complete this topic MCV4 Aged Out No longer eligib le based on patient 's age to complete this topic Insurance Payer Benefit Plan / Subscriber ID Effective Dates Phone Addre ss Type Group BCBS [place] [id number] 2016-Present [address] [address] [place] [phone] Amy Nicole Non-Covered/Pre Self 1955 [address] pay (Home) [address] [phone] [place] (Work) [id number] Care Teams Director Hair Relationship Specialty Start Date End Date Sera Son MD PCP - General Internal Medicine [address] [place] [address]
--- OUTSIDE RECORDS SUMMARY | 2022-05-13 16:37 | XMS_ITS | Encounter Summary ---
:1955 Author Organization [facility] Address [address], [place] [address] Care Team Providers Name Role Phone Souleymane Dangelo MD Primary Care Provider Encounter Details Date Type Department Care Team Description 06/25/2009 Imaging [facility] Canceled (Clinic Request) [address] [place], [place] [id number] Social History Tobacco Use Types Packs/Day Years [...] Vences ne, OD [address] [place], [place] [address] (Wo rk) documented as of this encounter Visit Diagnoses Not on filedocumented in this encounter Care Teams Assessment Services Manager Relationship Specialty Start Date End Date Souleymane Dangelo MD PCP - General 12/27/99 11/27/10 [address] [place], [place] [id number] documented as of this encounter
--- OUTSIDE RECORDS SUMMARY | 2022-05-13 16:37 | XMS_ITS | Encounter Summary ---
:1955 Author Organization [facility] Address [address] [address] Care Team Providers Name Role Phone Sera Son MD Primary Care Provider Reason for Referral Procedure/Equipment (Routine) - Closed Specialty Diagnoses / Procedures Referred By Contact Refer red To Contact Procedures [facility] MAMMOGRAM SCREENING BILATERAL [address] [place] [address] Referral ID Status Reason Start Date Expiration Date Visits Requ ested Visits Authorized [id number] Closed 07/15/2012 1 1 Reason for Visit Procedure/Equipment (Routine) - Closed Specialty Diagnoses / Procedures Referred By Contact Refer red To Contact Procedures [facility] MAMMOGRAM SCREENING BILATERAL [address] [place] [address] Referral ID Status Reason Start Date Expiration Date Visits Requ ested Visits Authorized [id number] Closed 07/15/2012 1 1 Encounter Details Date Type Department Care Team Description 07/15/2012 [facility] Sera Son MD [address] [address] [place] [address] [place] [address] [phone] (Wo rk) Social History Tobacco Use Types [...] Vences ne, OD [address] [place], [place] [address] (Wo rk) documented as of this encounter Procedures Procedure Name Priority Date/Time Associated Diagnosis Comme nts MM MAMMOGRAM Routine 07/15/2012 5:51 PM Results f or this SCREENING BILAT W CDT procedure are in CAD the results section. documented in this encounter Results MAMMOGRAM SCREENING BILATERAL (07/15/2012 5:51 PM CDT) Anatomical Region Laterality Modality Breast Bilateral Mammography Specimen (Source) Anatomical Location Collection Method / Collectio n Time Received Time / Laterality Volume Narrative 07/16/2012 3:17 PM CDT BILATERAL FULL FIELD DIGITAL SCREENING MAMMOGRAM Performed on 07/15/2012 Comparison: MAMMOGRAM SCREENING W/CAD BI LAT 07/08/11, MAMMOGRAM SCREENING W/CAD BILAT 07/04/10 and MAMMOGRAM DIAGN OSTIC BILATERAL 06/28/09. Findings: The breasts have scattered fib roglandular densities. There is no radiographic evidence of malignancy.This study was evaluated with the assistance of Computer-Aided Detection. ??Repeat routine screening mammogram in one year is recommended. ACR BI-RADS Category 1: Negative Procedure Note Luis Ortez MD - 07/16/2012Forma tting of this note might be different from the original. BILATERAL FULL FIELD DIGITAL SCREENING M AMMOGRAM Performed on 07/15/2012 Comparison: MAMMOGRAM SCREENING W/CAD BI LAT 07/08/11, MAMMOGRAM SCREENING W/CAD BILAT 07/04/10 and MAMMOGRAM DIAGNOSTIC BILATERAL 06/28/09. Findings: The breasts have scattered fib roglandular densities. There is no radiographic evidence of malignancy.This study was evaluated with the assistance of Computer-Aided Detection. Repeat routine screening mammogram in one year is recommended. ACR BI-RADS Category 1: Negative Sera Son MD RAD SH[place] documented in this encounter Visit Diagnoses Not on filedocumented in this encounter Care Teams Pile Header Relationship Specialty Start Date End Date Sera Son MD PCP - General Internal Medicine [address] [place] [address] documented as of this encounter
--- OUTSIDE RECORDS SUMMARY | 2022-05-13 16:37 | XMS_ITS | Encounter Summary ---
:1955 Author Organization [facility] Address [address] [address] Care Team Providers Name Role Phone Souleymane Dangelo MD Primary Care Provider Encounter Details Date Type Department Care Team Description 04/05/2007 Orders Only [facility] abdi Souleymane Dangelo MD [address] [place] [address] [place] [address] [phone] (Wo rk) Social History Tobacco Use Types [...] 07/07/2022 Appointment Optometry [place] ne, OD [address] [place], [place] [address] (Wo rk) documented as of this encounter Procedures Procedure Name Priority Date/Time Associated Diagnosis Comme nts BILATERAL SCREENING Routine 05/10/2007 4:56 PM Re sults for this MAMMOGRAM CDT procedure are i n the results section. documented in this encounter Results BILATERAL SCREENING MAMMOGRAM (05/10/2007 4:56 PM CDT) Anatomical Region Laterality Modality Breast Other Specimen (Source) Anatomical Collection Method Collection Time Re ceived Time Location / / Volume Laterality 05/10/2007 4:56 PM CDT Narrative 05/13/2007 8:07 AM CDT BILT SCREEN, PREV FILMS HERE [id number], [id number] BILATERAL FULL FIELD DIGITAL SCREENING M AMMOGRAM 05/10/07: The breast tissue has scattered fibrogla ndular densities. ??There is no evidence for malignancy and no change from the previous examination of 04/13/06, 04/10/05. Exam reviewed with computer aided detect ion (CAD) system for a second reading. ACR Category 1: ??Normal examination. Repeat routine mammogram is recommended in one year. Souleymane Dangelo MD RAD MAMMO/RH documented in this encounter Visit Diagnoses Not on filedocumented in this encounter Care Teams Glass Installer Relationship Specialty Start Date End Date Souleymane Dangelo MD PCP - General 12/27/99 11/27/[address] [place] [address] documented as of this encounter
--- OUTSIDE RECORDS SUMMARY | 2022-05-13 16:37 | XMS_ITS | Encounter Summary ---
:1955 Author Organization [facility] Address [address] [place] [address] Care Team Providers Name Role Phone Sera Son MD Primary Care Provider Reason for Visit Reason Comments Routine Eye Exam SUKI 10/2017 Dr Vences. She h as an old pair of gls- not with her today- would like updated pa ir this year. No eye pain. No ATs Contact Lens Aware of 50 fee. VA is stabl e. Wears OTC readers over CL. LFT eye comfort is not as good- gets dried out faster. Encounter Details Date Type Department Care Team Description 10/01/2018 Office Visit [facility], Visit for eye and vision exa m (Primary Dx); [address] Sera, OD Myopia, bilateral; [place] [address] [address] Regular astigmatism, bilateral; [phone] [place], [place] [address] Combined forms of age-related cataract o f both eyes; [phone] Presbyopia (Work) Social History Tobacco Use Types Packs/Day [...] Patient Instructions Patient InstructionsSpSera guevara, OD - 10/01/2018 3:10 PM CST Cataracts and cataract surgery A [...] risks, benefits, potential complications andalternatives with your executive pilot. Fortunately, complications from cataract surgery are relatively [...] a successful result. Helpful Websites: http://www.nei.nih.gov/health http://www.eyesurgeryeducation.com/ AND PRODUCTION PLANNER documented in this encounter Progress Notes Sera Vences, REYNOLD - 10/01/2018 3:10 PM CST HPI Chief Complaint Patient presents with ??? Routine Eye Exam SUKI 10/2017 Dr Vences. She has an old pair of gls- not with her today- would like updated pair thisyear. No eye pain. No ATs ??? Contact Lens Aware of 50 fee. VA is stable. Wears OTC readers over CL. LFT eye comfort is not as good- gets dried out faster. History Reviewed Assessment Myopia, astigmatism, presbyopia Cataracts OU not visually significant Plan Spectacle Prescription given Contact lens prescription provided for the patient Change to clear care solution Return to clinic in 1 year(s) for routine and contact lens exam . Sera Vences, REYNOLD AND PRODUCTION PLANNER documented in this encounter Plan of Treatment Upcoming Encounters Date Type Specialty Care Team Description 07/07/2022 Appointment Optometry [place] ne, OD [address] [place], [place] [address] (Wo rk) documented as of this encounter Visit Diagnoses Diagnosis Visit for eye and vision exam - Primary Examination of eyes and vision Myopia, bilateral Myopia Regular astigmatism, bilateral Combined forms of age-related cataract o f both eyes Other and combined forms of senile catar act Presbyopia documented in this encounter Care Teams Fence Machine Operator Relationship Specialty Start Date End Date Sera Son MD PCP - General Internal Medicine [address] [place] [address] documented as of this encounter
--- OUTSIDE RECORDS SUMMARY | 2022-05-13 16:37 | XMS_ITS | Encounter Summary ---
:1955 Author Organization [facility] Address [address], [place] [address] Care Team Providers Name Role Phone Sera Son MD Primary Care Provider Reason for Visit Reason Comments Routine Eye Exam Contact Lens Encounter Details Date Type Department Care Team Description 03/04/2021 Office Visit [facility] Kojo Vences for eye and vision exa m (Primary Dx); [address] Sera, OD Myopia, bilateral; [place] [address] [address] Regular astigmatism, bilateral; [phone] [place], [place] [address] Presbyopia; [phone] Dry eyes, bilat eral; (Work) Combined forms of age-related cataract o f both eyes Social History Tobacco Use Types Packs/Day Years [...] Patient Instructions Patient InstructionsSera Vences, OD - 03/04/2021 8:30 AM CDT Thank you for allowing me to participate in your care at [facility]. If you have any questions regarding your visit today, please feel free to reach out via [employer]. Preventative Eye Care: UV Protection: ?? UV light can be damaging to your eyes just like it can be to your skin. When searching for sunglasses, make sure that they have a rating of UV400 or higher. This means they???ll filter 99.9% of bothUVA and UVB rays. Overexposure to either can cause damage to the eye. ?? Polarized glasses can also be helpful because they cut down on the horizontal light that is common when driving or spending time on the perdue. They are recommended in addition to UV protection. Diet and Nutrition: ?? Lutein and Zeaxanthin are antioxidants found in the lens and retina of the eye. They are vital for the central part of your vision. They are also suspected to reduce damage from the blue light emitted from computer screens as well. They are found in dark, leafy vegetables such as kale, spinach, broccoli, and brussel sprouts. ?? Smoking cessation is an important aspect of your eye health as some eye diseases can get worse with smoking. [facility] have health coaches to assist you in being tobacco free. If interested, call [phone]. Eye Drops: ?? Dryness: Refresh, Systane, Blink ?? Allergies: Zaditor, Alaway, Pataday ?? Avoid: Visine, Clear Eyes, Opcon-A ?? The active ingredients in these drops are either Tetrahydrozoline or Naphazoline. They work by artificially clamping down on the blood vessels that are visible. This may work temporarily but with watermelon inspector use it can cause the blood vessels to become larger and more visible. Computer Use: ?? A good rule of thumb for not straining your eyes while at the computer is the 20-20-20 rule. Every 20 minutes look at something 20 feet away for 20 seconds. ?? Other helpful hints are to try blue-light blocking glasses, change the lighting on the computer, adjust computer for a healthy posture, and give yourself time to blink fully as blinking is severely reduced with screen time. Dilation: ?? Dilation drops may have been used today. These drops allow us to have a clearer, wider view inside the eye to look for signs of eye disease. Your vision could be blurry up close and pupils may look larger for up to 4 to 6 hours. It is recommended that you wear sunglasses when you are outside today.If you do not have any sunglasses with you, there are some disposable ones available. Please use caution in getting around for the few hours that your eyes are dilated. documented in this encounter Progress Notes Sera Vences, OD - 03/04/2021 8:30 AM CDT Chief Complaint Patient presents with ??? Routine Eye Exam ??? Contact Lens HPI SUKI 10/24/2019 Dr Vences. Gls about 2 years old- she has been wearing those most often during covid. VA seems stable. No eye pain. Gels tears prn. Aware of 50 fee. VA seems stable. LFT eye not very comfortable- pops out easily. Not sure if her eyeis dry. Orders outside of . Last edited by Mayela Guerrero, MARY on 03/04/2021 8:44 AM. (History) History Reviewed Assessment Myopia, astigmatism, presbyopia Dry eye symptoms Cataracts OU not visually significant Plan Spectacle Prescription given Dispense contact lens trials - try higher O2 lens -consider less minus Return to clinic in 1 month(s) for contact lens recheck . Sera Vences, REYNOLD documented in this encounter Plan of Treatment Upcoming Encounters Date Type Specialty Care Team Description 07/07/2022 Appointment Optometry [place], OD [address] [place], [place] [address] (Wo rk) documented as of this encounter Visit Diagnoses Diagnosis Visit for eye and vision exam - Primary Examination of eyes and vision Myopia, bilateral Myopia Regular astigmatism, bilateral Presbyopia Dry eyes, bilateral Tear film insufficiency, unspecified Combined forms of age-related cataract o f both eyes Other and combined forms of senile catar act documented in this encounter Care Teams Bakeshop Cleaner Relationship Specialty Start Date End Date Sera Son MD PCP - General Internal Medicine [address] [place] [address] documented as of this encounter
--- OUTSIDE RECORDS SUMMARY | 2022-05-13 16:37 | XMS_ITS | Encounter Summary ---
:1955 Author Organization [facility] Address [address], [place] [address] Care Team Providers Name Role Phone Souleymane Dangelo MD Primary Care Provider Reason for Visit Reason Comments CONTACTS,RE-EVALUATION aware of 40.00 fee EYE EXAM,YEARLY no problems Encounter Details Date Type Department Care Team Description 12/07/2008 Office Visit [facility], Examination of Eyes and Visi on (Primary Dx); [address] Sera, OD Myopia; [place] [address] Presbyopia [phone] [place], [place] [address] Social History Tobacco Use [...] this encounter Progress Notes Sera Vences - 12/07/2008 4:29 PM CDT HPI Chief Complaint Patient presents with ??? CONTACTS,RE-EVALUATION aware of 40.00 fee ??? EYE EXAM,YEARLY no problems History Reviewed Today's rooming note, PMH, ROS, Family History, Social History, Surgical History, Meds, Allergies, Vitals and Relevant Results Assessment Myopia, astigmatism, presbyopia Ocular health normal See Documentation Flowsheets and/or Summary Report Plan Spectacle Prescription: see script Contact lens prescription: see script Order CL's and mail to patient Return to clinic in 1 year(s) for routine and contact lens exam Sera Vences, REYNOLD documented in this encounter Plan of Treatment Upcoming Encounters Date Type Specialty Care Team Description 07/07/2022 Appointment Optometry [place] ne, OD [address] [place], [place] [address] (Wo rk) documented as of this encounter Visit Diagnoses Diagnosis Examination of eyes and vision - Primary Myopia Presbyopia documented in this encounter Care Teams Petroleum Refinery Worker Relationship Specialty Start Date End Date Souleymane Dangelo MD PCP - General 12/27/99 11/27/[address] [place] [address] documented as of this encounter
--- OUTSIDE RECORDS SUMMARY | 2022-05-13 16:37 | XMS_ITS | Encounter Summary ---
:1955 Author Organization [facility] Address [address] [place] [address] Care Team Providers Name Role Phone Sera Son MD Primary Care Provider Reason for Visit Reason Comments Eye Exam SUKI 12/13/13 Dr Vences. Old r x for gls- not with her today. No eye pain. Uses gel tears at night. Contact Lens Aware of fees. VA is stable. Wears OTC readers over CL. Comfort is good. Encounter Details Date Type Department Care Team Description 12/15/2014 Office Visit [facility], Examination of eyes and visi on (Primary Dx); [address] REYNOLD Zamora Myopia, bilateral; [place] [address] Astigmatism, unspecified; [phone] [place], [place] [address] Presbyopia Social History Tobacco [...] Patient Instructions Patient InstructionsSpSera guevara, OD - 12/15/2014 12:59 PM CDT Thank you for choosing [facility] for your eye care needs. Many tests [...] the clinic in the future? Appointment Center: [phone] Eye Dept: [phone] Online Services: [email or web address] For after hours care, call the CareLine at [phone] or . We look forward to taking care of your eye care needs in the years to come. documented in this encounter Progress Notes Sera Vences, OD - 12/19/2014 5:26 AM CDT HPI Chief Complaint Patient presents with ??? Eye Exam SUKI 12/13/13 Dr Vences. Old rx for gls- not with her today. No eye pain. Uses gel tears at night. ??? Contact Lens Aware of fees. VA is stable. Wears OTC readers over CL. Comfort is good. History Reviewed Assessment Myopia, astigmatism, presbyopia Ocular health normal Plan Spectacle Prescription given Contact lens prescription provided for the patient Order CL's Return to clinic in 1 year(s) for routine and contact lens exam . Sera Vences OD Mayela Guerrero - 12/15/2014 12:41 PM CDT 12:42 PM documented in this encounter Plan of Treatment Upcoming Encounters Date Type Specialty Care Team Description 07/07/2022 Appointment Optometry [place], OD [address] [place], [place] [address] (Wo rk) documented as of this encounter Visit Diagnoses Diagnosis Examination of eyes and vision - Primary Myopia, bilateral Myopia Astigmatism, unspecified Presbyopia documented in this encounter Care Teams Vault Person Relationship Specialty Start Date End Date Sera Son MD PCP - General Internal Medicine [address] [place] [address] documented as of this encounter
--- OUTSIDE RECORDS SUMMARY | 2022-05-13 16:37 | XMS_ITS | Encounter Summary ---
:1955 Author Organization [facility] Address [address] [address] Care Team Providers Name Role Phone Souleymane Dangelo MD Primary Care Provider Encounter Details Date Type Department Care Team Description 07/30/2007 Therapy External to [facility], Provider Social History Tobacco Use Types Packs/Day Years [...] documented as of this encounter Progress Notes [facility], Provider - 07/30/2007 12:00 AM RESORT HOST documented in this encounter Plan of Treatment Upcoming Encounters Date Type Specialty Care Team Description 07/07/2022 Appointment Optometry [place] ne, OD [address] [place], [place] [address] (Wo rk) documented as of this encounter Visit Diagnoses Not on filedocumented in this encounter Care Teams Flatbed Stitcher Relationship Specialty Start Date End Date Souleymane Dangelo MD PCP - General 12/27/99 11/27/[address] [place] [address] documented as of this encounter
--- OUTSIDE RECORDS SUMMARY | 2022-05-13 16:37 | XMS_ITS | Encounter Summary ---
:1955 Author Organization [facility] Address [address] [place] [address] Care Team Providers Name Role Phone Sera Son MD Primary Care Provider Reason for Visit Reason Comments Contact Lens aware of fees- likes cl she is wearing. ou good, no gtts or kenya used reg. no complaints. Encounter Details Date Type Department Care Team Description 12/17/2010 Office Visit [facility], Examination of eyes and visi on (Primary Dx); [address] Sera, REYNOLD Myopia; [place] [address] [address] Unspecified astigmatism; [phone] [place], [place] [address] Presbyopia Social History Tobacco [...] Patient Instructions Patient InstructionsSera Vences, REYNOLD - 12/17/2010 12:23 PM CDT Thank you for choosing [facility] for your eye care needs. Many tests [...] the clinic in the future? Appointment Center: [phone] Eye Dept: [phone] Online Services: [email or web address] For after hours care, call the CareLine at [phone] or . We look forward to taking care of your eye care needs in the years to come. documented in this encounter Progress Notes Sera Vences, REYNOLD - 12/17/2010 5:56 PM CDT HPI Chief Complaint Patient presents with ??? Contact Lens aware of fees- likes cl she is wearing. ou good, no gtts or kenya used reg. no complaints. History Reviewed Assessment Myopia, astigmatism, presbyopia Ocular health normal Plan Spectacle Prescription given Contact lens prescription provided for the patient Return to clinic in 1 year(s) for routine and contact lens exam . Sera Vences OD Mayela Mcleod - 12/17/2010 11:19 AM CDT 11:19 AM documented in this encounter Plan of Treatment Upcoming Encounters Date Type Specialty Care Team Description 07/07/2022 Appointment Optometry Los Vences, OD [address] [place], [place] [address] (Wo rk) documented as of this encounter Visit Diagnoses Diagnosis Examination of eyes and vision - Primary Myopia Astigmatism, unspecified Presbyopia documented in this encounter Care Teams Automation Analyst Relationship Specialty Start Date End Date Sera Son MD PCP - General Internal Medicine 11/28/101999 [place] [address] documented as of this encounter
--- OUTSIDE RECORDS SUMMARY | 2022-05-13 16:37 | XMS_ITS | Encounter Summary ---
:1955 Author Organization [facility] Address [address] [place] [address] Care Team Providers Name Role Phone Sera Son MD Primary Care Provider Reason for Visit Reason Comments Routine Eye Exam SUKI 12/2014 Dr Vences. She h as gls that are an old rx- not with her today. No eye pain- some RLL pain- states no bump- can hardly noticed it anymore. Uses gel tears at night. Contact Lens Aware of fees. [facility] and comfor t good. Orders with [facility]. Encounter Details Date Type Department Care Team Description 12/21/2015 Office Visit [facility], Kojo for eye and vision exa m (Primary Dx); [address] Sera, OD Myopia, bilateral; [place] [address] Regular astigmatism, bilateral; [phone] [place], [place] [address] Presbyopia Social History Tobacco [...] Patient Instructions Patient InstructionsSpSera guevara, OD - 12/24/2015 8:27 AM CDT Thank you for choosing [facility] for your eye care needs. Many tests [...] the clinic in the future? Appointment Center: [phone] Eye Dept: [phone] Online Services: [email or web address] For after hours care, call the CareLine at [phone] or . We look forward to taking care of your eye care needs in the years to come. documented in this encounter Progress Notes Sera Vences, OD - 12/24/2015 8:27 AM CDT HPI Chief Complaint Patient presents with ??? Routine Eye Exam SUKI 12/2014 Dr Vences. She has gls that are an old rx- not with her today. No eye pain- some RLL pain- states no bump- can hardly noticed it anymore. Uses gel tears at night. ??? Contact Lens Aware of fees. VA and comfort good. Orders with [facility]. History Reviewed Assessment Myopia, astigmatism, presbyopia Ocular health normal Plan Spectacle Prescription given Contact lens prescription provided for the patient Order CL's Return to clinic in 1 year(s) for routine and contact lens exam . Sera Vences OD Maylea Guerrero - 12/21/2015 2:13 PM CDT 2:13 PM documented in this encounter Plan of Treatment Upcoming Encounters Date Type Specialty Care Team Description 07/07/2022 Appointment Optometry Los Vences, OD [address] [place], [place] [address] (Wo rk) documented as of this encounter Visit Diagnoses Diagnosis Visit for eye and vision exam - Primary Examination of eyes and vision Myopia, bilateral Myopia Regular astigmatism, bilateral Presbyopia documented in this encounter Care Teams Trust Clerk Relationship Specialty Start Date End Date Sera Son MD PCP - General Internal Medicine 11/28/101999 [place] [address] documented as of this encounter
--- OUTSIDE RECORDS SUMMARY | 2022-05-13 16:37 | XMS_ITS | Encounter Summary ---
:1955 Author Organization [facility] Address [address] [address] Care Team Providers Name Role Phone Souleymane Dangelo MD Primary Care Provider Reason for Visit Reason Comments URI x 1-2 wks Encounter Details Date Type Department Care Team Description 10/23/2008 Office Visit [facility] Souleymane Dangelo, Chicho e Sinusitis, Unspecified (Primary Dx); Practice Anxiety State, Unspecified [address] [place] [address] [address] [phone] [place], [place] [id number] (Wo rk) Social History Tobacco Use Types [...] Comments Blood Pressure 110/68 10/23/2008 11:33 AM [employer]OUN[employer]KEEPING [employer]ARDM[employer] Pulse 76 10/23/2008 11:33 AM [employer]OUN[employer]KEEPING [employer]ARDM[employer] Temperature 36.7 ??C (98.1 ??F) 10/23/2008 11:33 AM GROUN[employer]KEEPING YARDM[employer] Respiratory Rate 12 10/23/2008 11:33 AM GROUN[employer]KEEPING YARDM[employer] Oxygen Saturation - - Inhaled Oxygen Concentration - - Weight 74.4 kg (164 lb) 10/23/2008 11:33 AM [employer]KEEP[employer]AR[employer] Height - - Body Mass Index 26.07 04/12/2008 11:14 AM CDT documented in this encounter Progress Notes Souleymane Dangelo - 10/23/2008 11:45 AM CST Patients primary concern: congestion sinus pressure non productive cough Duration: 1 1/2 -week(s) Significant positive medical hx: allergic rhinitis Exposures: URI History Tobacco Use Never Associated symptoms: General symptoms:fatigue and chills HEENT symptoms: sore throat, nasal congestion and sinus pressure over 7 days with poor response to decongestant and facial/sinus pain Chest symptoms: cough Abd/GI symptoms: none Red flag symptoms: none Objective Appears healthy and alert, comfortable BP 110/68 Pulse 76 Temp (Src) 98.1 ??F (36.7 ??C) (Oral) Resp 12 Wt 164 lb (74.39 kg) HEENT: EAC's/TM's normal, conjunctiva normal, sinus tenderness present Bilateral , oropharynx normal, no significant cervical adenopathy and neck supple Chest: heart exam normal; lungs clear Abd: normal Skin: no rash, no purpura/petechia Lab/xray data: not indicated Assessment sinusitis Plan Symptomatic treatment and See prescribed medication(s) Call or return to clinic if these symptoms worsen or fail to improve as anticipated. Souleymane Dangelo MD [employer]ARDM[employer] documented in this encounter Plan of Treatment Upcoming Encounters Date Type Specialty Care Team Description 07/07/2022 Appointment Optometry Los Vences ne, OD [address] [place], [place] [address] (Wo rk) documented as of this encounter Visit Diagnoses Diagnosis Acute sinusitis, unspecified - Primary Anxiety state, unspecified (HRC) Anxiety state, unspecified documented in this encounter Care Teams Specialist Physician Relationship Specialty Start Date End Date Souleymane Dangelo MD PCP - General 12/27/99 11/27/[address] [place] [address] documented as of this encounter
--- OUTSIDE RECORDS SUMMARY | 2022-05-13 16:37 | XMS_ITS | Encounter Summary ---
:1955 Author Organization [facility] Address [address], [place] [address] Care Team Providers Name Role Phone Souleymane Dangelo MD Primary Care Provider Encounter Details Date Type Department Care Team Description 07/04/2010 Imaging [facility] [address] [address] Social History Tobacco Use Types [...] Vences ne, OD [address] [place], [place] [address] (Wo rk) documented as of this encounter Procedures Procedure Name Priority Date/Time Associated Diagnosis Comme nts MM MAMMOGRAM Routine 07/04/2010 5:30 PM Results f or this SCREENING BILAT W CDT procedure are in CAD the results section. documented in this encounter Results MAMMOGRAM SCREENING BILATERAL (07/04/2010 5:30 PM CDT) Anatomical Region Laterality Modality Breast Bilateral Mammography Specimen (Source) Anatomical Location Collection Method / Collectio n Time Received Time / Laterality Volume Narrative 07/05/2010 9:33 AM CDT BILATERAL FULL FIELD DIGITAL SCREENING MAMMOGRAM Performed on 07/04/2010 Comparison: MAMMOGRAM DIAGNOSTIC BILATER AL 06/28/09, MAMMOGRAM SCREENING BILATERAL 06/22/08 and BILATERAL SCREENIN G MAMMOGRAM 05/10/07. Findings: The breasts have scattered fib roglandular densities. There is no radiographic evidence of malignancy.This study was evaluated with the assistance of Computer-Aided Detection. ??Repeat routine screening mammogram in one year is recommended. ACR BI-RADS Category 1: Negative Procedure Note Tristan Overton H - 07/05/2010Formattin g of this note might be different from the original. BILATERAL FULL FIELD DIGITAL SCREENING M AMMOGRAM Performed on 07/04/2010 Comparison: MAMMOGRAM DIAGNOSTIC BILATER AL 06/28/09, MAMMOGRAM SCREENING BILATERAL 06/22/08 and BILATERAL SCREENING MAMMOGRAM 05/10/07. Findings: The breasts have scattered fib roglandular densities. There is no radiographic evidence of malignancy.This study was evaluated with the assistance of Computer-Aided Detection. Repeat routine screening mammogram in one year is recommended. ACR BI-RADS Category 1: Negative Souleymane Dangelo MD RAD [facility] documented in this encounter Visit Diagnoses Not on filedocumented in this encounter Care Teams Administrative Support Clerk Relationship Specialty Start Date End Date Souleymane Dangelo MD PCP - General 12/27/99 11/27/[address] [place] [address] documented as of this encounter
--- OUTSIDE RECORDS SUMMARY | 2022-05-13 16:37 | XMS_ITS | Encounter Summary ---
:1955 Author Organization [facility] Address [address] [address] Care Team Providers Name Role Phone Souleymane Dangelo MD Primary Care Provider Encounter Details Date Type Department Care Team Description 06/22/2008 Imaging [facility] [address] [address] Social History Tobacco Use Types [...] Vences ne, OD [address] [place], [place] [address] (Wo rk) documented as of this encounter Procedures Procedure Name Priority Date/Time Associated Diagnosis Comme nts MM MAMMOGRAM Routine 06/22/2008 5:14 PM Results f or this SCREENING BILAT W CDT procedure are in CAD the results section. documented in this encounter Results MAMMOGRAM SCREENING BILATERAL (06/22/2008 5:14 PM CDT) Anatomical Region Laterality Modality Breast Bilateral Mammography Specimen (Source) Anatomical Location Collection Method / Collectio n Time Received Time / Laterality Volume Narrative 06/23/2008 9:44 AM CDT BILATERAL FULL FIELD DIGITAL SCREENING MAMMOGRAM Performed on 06/22/2008 Comparison: BILATERAL SCREENING MAMMOGRA M 05/10/07 and BILATERAL SCREENING MAMMOGRAM 04/13/06 Findings: The breasts have scattered fib roglandular densities. There is no radiographic evidence of malignancy. Exam scanned with a computer-aided device for a second inter pretation. Repeat routine screening mammogram in one year is recom mended. ACR BI-RADS Category 1: Negative Procedure Note Tristan Overton - 06/23/2008Formattin g of this note might be different from the original. BILATERAL FULL FIELD DIGITAL SCREENING M AMMOGRAM Performed on 06/22/2008 Comparison: BILATERAL SCREENING MAMMOGRA M 05/10/07 and BILATERAL SCREENING MAMMOGRAM 04/13/06 Findings: The breasts have scattered fib roglandular densities. There is no radiographic evidence of malignancy. Exam scanned with a computer-aided device for a second interpretation. Repeat routine screening mammogram in one year is recommended. ACR BI-RADS Category 1: Negative Souleymane Dangelo MD RAD SHAWNEE documented in this encounter Visit Diagnoses Not on filedocumented in this encounter Care Teams Tennis Desk Team Member Relationship Specialty Start Date End Date Souleymane Dangelo MD PCP - General 12/27/99 11/27/[address] [place] [address] documented as of this encounter
--- OUTSIDE RECORDS SUMMARY | 2022-05-13 16:37 | XMS_ITS | Encounter Summary ---
:1955 Author Organization [facility] Address [address] [place] [address] Care Team Providers Name Role Phone Sera Son MD Primary Care Provider Reason for Visit Reason Comments Routine Eye Exam Here for cl check also. Awar e of fee. No visual concerns. Contacts are comfortable. Encounter Details Date Type Department Care Team Description 12/13/2013 Office Visit [facility], Examination of eyes and visi on (Primary Dx); [address] Sera, REYNOLD Myopia, bilateral [367.1]; [place] [address] [address] Astigmatism, unspecified; [phone] [place], [place] [address] Presbyopia Social History Tobacco [...] Patient Instructions Patient InstructionsSera Vences, OD - 12/14/2013 8:07 AM CDT Thank you for choosing [facility] for your eye care needs. Many tests [...] the clinic in the future? Appointment Center: [phone] Eye Dept: [phone] Online Services: [email or web address] For after hours care, call the CareLine at [phone] or . We look forward to taking care of your eye care needs in the years to come. documented in this encounter Progress Notes Sera Vences, OD - 12/14/2013 8:07 AM CDT HPI Chief Complaint Patient presents with ??? Routine Eye Exam Here for cl check also. Aware of fee. No visual concerns. Contacts are comfortable. History Reviewed Assessment Myopia, astigmatism, presbyopia Ocular health normal Plan Spectacle Prescription given Contact lens prescription provided for the patient Order CL's Return to clinic in 1 year(s) for routine and contact lens exam . Sera Vences, REYNOLD documented in this encounter Plan of Treatment Upcoming Encounters Date Type Specialty Care Team Description 07/07/2022 Appointment Optometry Los Vences, OD [address] [place], [place] [address] (Wo rk) documented as of this encounter Visit Diagnoses Diagnosis Examination of eyes and vision - Primary Myopia, bilateral [367.1] Myopia Astigmatism, unspecified Presbyopia documented in this encounter Care Teams Sas Analyst Relationship Specialty Start Date End Date Sera Son MD PCP - General Internal Medicine 11/28/[address] [place] [address] documented as of this encounter
--- OUTSIDE RECORDS SUMMARY | 2022-05-13 16:37 | XMS_ITS | Encounter Summary ---
:1955 Author Organization [facility] Address [address] [place] [address] Care Team Providers Name Role Phone Souleymane Dangelo MD Primary Care Provider Reason for Visit Reason Comments Routine Eye Exam no problems or visual concer ns. Aware of the 50 dollar cl fee today. Encounter Details Date Type Department Care Team Description 12/07/2009 Office Visit [facility], Examination of Eyes and Visi on (Primary Dx); [address] Sera, OD Myopia; [place] [address] [address] Unspecified Astigmatism; [phone] [place], [place] [address] Presbyopia Social History Tobacco [...] as of this encounter Patient Instructions Patient InstructionsBeckie Vencesine - 12/07/2009 12:59 PM CDT [facility] your [facility] care needs. Many tests [...] the clinic in the future? Appointment Center: [phone] Eye Dept: [phone] Online Services: [email or web address] For after hours care, call the CareLine at [phone] or . We look forward to taking care of your eye care needs in the years to come. documented in this encounter Progress Notes Sera Vences - 12/07/2009 1:27 PM CDT HPI Chief Complaint Patient presents with ??? Routine Eye Exam no problems or visual concerns. Aware of the 50 dollar cl fee today. History Reviewed Assessment Myopia, astigmatism, presbyopia Ocular health normal Plan Spectacle Prescription given Contact lens prescription provided for the patient Order CL's - ship to patient Return to clinic in 1 year(s) for routine and contact lens exam . Sera Vences OD documented in this encounter Plan of Treatment Upcoming Encounters Date Type Specialty Care Team Description 07/07/2022 Appointment Optometry Los Vences ne, OD [address] [place], [place] [address] (Wo rk) documented as of this encounter Visit Diagnoses Diagnosis Examination of eyes and vision - Primary Myopia Astigmatism, unspecified Presbyopia documented in this encounter Care Teams Highway Maintenance Technician Relationship Specialty Start Date End Date Souleymane Dangelo MD PCP - General 12/27/[address] [place] [address] documented as of this encounter
--- OUTSIDE RECORDS SUMMARY | 2022-05-13 16:38 | XMS_ITS | Encounter Summary ---
:1955 Author Organization [facility] Address [address], [place] [address] Care Team Providers Name Role Phone Souleymane Dangelo MD Primary Care Provider Encounter Details Date Type Department Care Team Description 04/10/2005 Office Visit [facility] Arrived [address] [place] [address] Social History Tobacco Use Types Packs/Day Years Used Date Smoking Tobacco: Never Alcohol Use Standard Drinks/Week Comments Not Asked 0 (1 standard drink = 0.6 oz pure alcoho l) Sex Assigned at Date Recorded Not on file documented as of this encounter Plan of Treatment Upcoming Encounters Date Type Specialty Care Team Description 07/07/2022 Appointment Optometry Los Vences ne, OD [address] [place], [place] [address] (Wo rk) documented as of this encounter Procedures Procedure Name Priority Date/Time Associated Diagnosis Comme nts BILATERAL SCREENING Routine 04/10/2005 5:20 PM Re sults for this MAMMOGRAM CDT procedure are i n the results section. documented in this encounter Results MAMMOGRAM BILATERAL SCREENING (04/10/2005 5:20 PM CDT) Component Value Ref Test Analysis Performed At [facility] Range Method Time Signature BILAT. BILATERAL SCREENING MAMMOGRAM 04/10/2005: [facility] SCREEN[facility] The breast tissue is heterogeneously dense. ??There is no evidence RADIOLOGY MAMMOGRAM for malignancy and no change from the previous examination o f 01/18/03. Exam reviewed with computer aided detection (CAD) system for a second reading. ACR Category 1: ??Normal examination. Repeat routine mammography is recommended in one year. Anatomical Region Laterality Modality Breast Other Specimen (Source) Anatomical Collection Method Collection Time Re ceived Time Location / / Volume Laterality 04/10/2005 5:20 PM CDT Narrative 04/14/2005 3:39 PM CDT SAMAN SCRN MAMMO, PREV FILMS DONE HERE 02/28/04, 01/18/03 Souleymane Dangelo MD RAD MAMMO/RH documented in this encounter Visit Diagnoses Not on filedocumented in this encounter Care Teams Marine Oil Terminal Superintendent Relationship Specialty Start Date End Date Souleymane Dangelo MD PCP - General 12/27/99 11/27/[address] [place] [address] documented as of this encounter
--- OUTSIDE RECORDS SUMMARY | 2022-05-13 16:38 | XMS_ITS | Encounter Summary ---
:1955 Author Organization [facility] Address [address], [place] [address] Care Team Providers Name Role Phone Souleymane Dangelo MD Primary Care Provider Reason for Visit Reason Comments ALLERGIC RHINITIS pastora is not working anymo re Encounter Details Date Type Department Care Team Description 07/17/2005 Office Visit [facility] Souleymane Dangelo ALLE RGIC RHINITIS NOS (Primary Dx); Practice MD ANXIETY DISORDER NOS [address] [place] [address] [address] [phone] [place] [address] (Wo rk) Social History Tobacco Use Types Packs/Day Years Used Date Smoking Tobacco: Never Alcohol Use Standard Drinks/Week Comments Not Asked 0 (1 standard drink = 0.6 oz pure alcoho l) Sex Assigned at Date Recorded Not on file documented as of this encounter Last Filed Vital Signs Vital Sign Reading Time Taken Comments Blood Pressure 110/80 07/17/2005 8:10 AM [employer]OLF PROFESSIONAL Pulse 72 07/17/2005 8:10 AM [employer]OL[employer] PROFESSION[employer] Temperature - - Respiratory Rate 16 07/17/2005 8:10 AM [employer] PROFESSION[employer] Oxygen Saturation - - Inhaled Oxygen Concentration - - Weight - - Height - - Body Mass Index - - documented in this encounter Progress Notes 07/17/2005 8:00 AM [employer]OL[employer] PROFESSION[employer] Allergies Amy Nicole is a 50 yr old female complaining of runny nose, itchy nose, watery eyes, cough. This is a seasonal problem. Current treatment is pastora which is not helping enough. o: No apparent distress BP 110/80 Pulse 72 Resp 16 conjunctivae mild cobblestoning Nares with clear rhinorrhea and boggy mucosa Oropharynx: benign Lungs: clear a: allergic rhinitis P: meds as ordered. Also she has not tried loratidine and could try that also. Souleymane Dangelo MD documented in this encounter Plan of Treatment Upcoming Encounters Date Type Specialty Care Team Description 07/07/2022 Appointment Optometry Los Vences ne, OD [address] [place], [place] [address] (Wo rk) documented as of this encounter Visit Diagnoses Diagnosis Allergic rhinitis, cause unspecified - P rimary Anxiety state, unspecified (HRC) Anxiety state, unspecified documented in this encounter Care Teams Manager Of Development Relationship Specialty Start Date End Date Souleymane Dangelo MD PCP - General 12/27/99 11/27/[address] [place] [address] documented as of this encounter
--- OUTSIDE RECORDS SUMMARY | 2022-05-13 16:38 | XMS_ITS | Encounter Summary ---
:1955 Author Organization [facility] Address [address], [place] [address] Care Team Providers Name Role Phone Souleymane Dangelo MD Primary Care Provider Encounter Details Date Type Department Care Team Description 05/08/2004 Orders Only [facility] Souleymane Dangelo MD [address] [place] [address] [place] [address] [phone] (Wo rk) Social History Tobacco Use Types Packs/Day Years Used Date Smoking Tobacco: Never Alcohol Use Standard Drinks/Week Comments Not Asked 0 (1 standard drink = 0.6 oz pure alcoho l) Sex Assigned at Date Recorded Not on file documented as of this encounter Plan of Treatment Upcoming Encounters Date Type Specialty Care Team Description 07/07/2022 Appointment Optometry Los Vences ne, OD [address] [place], [place] [address] (Wo rk) documented as of this encounter Procedures Procedure Name Priority Date/Time Associated Diagnosis Comme nts MANUEL PREP Waiting 05/08/2004 3:55 PM Results f or this CDT procedure are i n the results section . documented in this encounter Results MANUEL PREP (05/08/2004 3:55 PM CDT) P athologist Signature MANUEL Negative [facility] Source Foot [facility] Specimen Anatomical Collection Method Collection Time Receive d Time (Source) Location / / Volume Laterality 05/08/2004 3:55 PM 3:56 CDT PM CDT Souleymane Dangelo MD LAB_1 Performing Organization Address City/State/ZIP Code Phon e Number [facility] [phone] [facility] [address] [phone] documented in this encounter Visit Diagnoses Not on filedocumented in this encounter Care Teams Sandfill Operator Surface Relationship Specialty Start Date End Date Souleymane Dangelo MD PCP - General 12/27/99 11/27/[address] [place] [address] documented as of this encounter
--- OUTSIDE RECORDS SUMMARY | 2022-05-13 16:38 | XMS_ITS | Encounter Summary ---
:1955 Author Organization [facility] Address [address] [address] Care Team Providers Name Role Phone Souleymane Dangelo MD Primary Care Provider Encounter Details Date Type Department Care Team Description 04/08/2006 Orders Only [facility] Prac abdi Souleymane Dangelo MD [address] [place] [address] [place] [address] [phone] (Wo rk) Social History Tobacco Use Types [...] Los Vences ne, OD [address] [place], [place] [address] (Wo rk) documented as of this encounter Procedures Procedure Name Priority Date/Time Associated Diagnosis Comme nts BILATERAL SCREENING Routine 04/13/2006 5:30 PM Re sults for this MAMMOGRAM CDT procedure are i n the results section. documented in this encounter Results BILATERAL SCREENING MAMMOGRAM (04/13/2006 5:30 PM CDT) Anatomical Region Laterality Modality Breast Other Specimen (Source) Anatomical Collection Method Collection Time Re ceived Time Location / / Volume Laterality 04/13/2006 5:30 PM CDT Narrative 04/18/2006 8:25 PM CDT BILT SCREEN, RPEV FILMS DONE HERE 04/10/05, 02/28/04 BILATERAL SCREENING MAMMOGRAM 04/13/2006: The breast tissue is heterogeneously den se. ??There is no evidence for malignancy and no change from the pr evious examination of 02/28/04. Exam reviewed with computer aided detect ion (CAD) system for a second reading. ACR Category 1: ??Normal examination. Repeat routine mammography is recommende d in one year. Souleymane Dangelo MD RAD MAMMO/RH documented in this encounter Visit Diagnoses Not on filedocumented in this encounter Care Teams Donation Specialist Relationship Specialty Start Date End Date Souleymane Dangelo MD PCP - General 12/27/99 11/27/[address] [place] [address] documented as of this encounter
--- OUTSIDE RECORDS SUMMARY | 2022-05-13 16:38 | XMS_ITS | Encounter Summary ---
:1955 Author Organization [facility] Address [address], [place] [address] Care Team Providers Name Role Phone Souleymane Dangelo MD Primary Care Provider Encounter Details Date Type Department Care Team Description 07/16/2006 Orders Only [facility] or Screening for Lipoid Disorde rs; [id number] [facility] Screening for Diabetes Melli tus; [place], [place] [address] Screening for Iron Deficienc y Anemia; [phone] Screening for T hyroid Disorder Social History Tobacco Use Types Packs/Day Years [...] Vences ne, OD [address] [place], [place] [address] (Wo rk) documented as of this encounter Procedures Procedure Name Priority Date/Time Associated Diagnosis Comme nts COMPLETE BLOOD Routine 07/16/2006 7:54 AM Screening for Iron R esults for this COUNT-NO DIFF PRINTED CIRCUIT BOARDS LAMINATOR Deficiency Anemia procedure are in the results section. LIPID PANEL, FAST > Routine 07/16/2006 7:54 AM Screening for L ipoid Results for this 12 HOUR PRINTED CIRCUIT BOARDS LAMINATOR Disorders procedure are i n the results section. TSH, SENSITIVE Routine 07/16/2006 7:54 AM Screening for Result s for this (WITH REFLEX) PRINTED CIRCUIT BOARDS LAMINATOR Thyroid Disorder procedure are in the results section. GLUCOSE - FASTING > Routine 07/16/2006 7:54 AM Screening for R esults for this 8 HRS FASTING PRINTED CIRCUIT BOARDS LAMINATOR Diabetes Mellitus procedure are in the results section. documented in this encounter Results TSH, SENSITIVE (WITH REFLEX) (07/16/2006 7:54 AM PRINTED CIRCUIT BOARDS LAMINATOR) athologist Signature TSH, with 2.87 0.3 - 5.0 [facility] Reflex uIU/ml Specimen Anatomical Collection Method Collection Time Receive d Time (Source) Location / / Volume Laterality 07/16/2006 7:54 AM 6 7:55 PRINTED CIRCUIT BOARDS LAMINATOR AM PRINTED CIRCUIT BOARDS LAMINATOR Souleymane Dangelo MD LAB_1 Performing Organization Address [facility] Phon e Number [employer] [phone] [address] HEMOGRAM/PLTS (07/16/2006 7:54 AM PRINTED CIRCUIT BOARDS LAMINATOR) athologist Signature WBC 8.6 4.0 - 11.0 [facility] k/ul Comment: All Parameters Rechecked RBC 4.21 4.0 - 5.2 M/ul [facility] Hemoglobin 13.3 12.0 - 16.0 g/dl [facility] RS HCT 38.2 36.0 - 46.0 % [facility] MCV 90.8 80 - 100 fl [facility] MCH 31.7 26 - 34 pg [facility] MCHC 35.0 32 - 36 % [facility] RDW 13.3 11.5 - 14.5 % [facility] Platelets 371 150 - 450 k/ul [facility] Specimen Anatomical Collection Method Collection Time Receive d Time (Source) Location / / Volume Laterality 07/16/2006 7:54 AM 6 7:55 PRINTED CIRCUIT BOARDS LAMINATOR AM PRINTED CIRCUIT BOARDS LAMINATOR Souleymane Dangelo MD LAB_1 Performing Organization Address [facility] Phon e Number [employer] [phone] [address] GLUCOSE - FASTING > 8 HRS FASTING (V77.1) (07/16/2006 7:54 AM PRINTED CIRCUIT BOARDS LAMINATOR) athologist Signature Glucose 87 70 - 100 [facility] mg/dl Hours Fasting 12 hours [facility] Specimen Anatomical Collection Method Collection Time Receive d Time (Source) Location / / Volume Laterality 07/16/2006 7:54 AM 6 7:55 PRINTED CIRCUIT BOARDS LAMINATOR AM PRINTED CIRCUIT BOARDS LAMINATOR Souleymane Dangelo MD LAB_1 Performing Organization Address [facility] Phon e Number [facility] [phone] [facility] [address] [place] [address] (ABNORMAL) CHOLESTEROL LIPID PANEL FAST >12HR (07/16/2006 7:54 AM PRINTED CIRCUIT BOARDS LAMINATOR) athologist Signature Cholesterol 224 (H) <200 mg/dl [facility] Comment: Result should not be interpreted without the patient's history of cardiovascular risk factors. Triglyceride 130 <200 mg/dl [facility] HDL 52 >35 mg/dl [facility] LDL, Calc. 146 mg/dl [facility] Hours Fasting 12 hours [facility] Specimen Anatomical Collection Method Collection Time Receive d Time (Source) Location / / Volume Laterality 07/16/2006 7:54 AM 6 7:55 PRINTED CIRCUIT BOARDS LAMINATOR AM PRINTED CIRCUIT BOARDS LAMINATOR Souleymane Dangelo MD LAB_1 Performing Organization Address [facility] Phon e Number [facility] [phone] [address] documented in this encounter Visit Diagnoses Diagnosis Screening for lipoid disorders Screening for diabetes mellitus Screening for iron deficiency anemia Screening for thyroid disorder documented in this encounter Care Teams Aircraft Armorer Relationship Specialty Start Date End Date Souleymane Dangelo MD PCP - General 12/27/99 11/27/[address] [place] [address] documented as of this encounter
--- OUTSIDE RECORDS SUMMARY | 2022-05-13 16:38 | XMS_ITS | Encounter Summary ---
:1955 Author Organization [facility] Address [address] [address] Care Team Providers Name Role Phone Souleymane Dangelo MD Primary Care Provider Reason for Visit Reason Onset Date Comments Refill 09/18/2004 Encounter Details Date Type Department Care Team Description 09/18/2004 Refill [facility] Souleymane Dangelo MD Refill [address] [place] [address] [place] [address] [phone] (Wo rk) Social History Tobacco Use Types Packs/Day Years Used Date Smoking Tobacco: Never Alcohol Use Standard Drinks/Week Comments Not Asked 0 (1 standard drink = 0.6 oz pure alcoho l) Sex Assigned at Date Recorded Not on file documented as of this encounter Nursing Notes 09/18/2004 11:59 PM CONTRACT ADMINISTRATIVE ASSISTANT Approved Prescriptions: Disp Refills JOHN 60MG ORAL TABS 180 3 Sig: TAKE 1 TABLET TWICE DAILY Authorizing Provider: SOULEYMANE DANGELO Ordering User: JAYME WISDOM >> EVELIA Lebron Sep 18, 2004 12:38 PM Last fill on 04.18.04 for a quantity of 180 FOR MAIL ORDER documented in this encounter Plan of Treatment Upcoming Encounters Date Type Specialty Care Team Description 07/07/2022 Appointment Optometry [place] ne, OD [address] [place], [place] [address] (Wo rk) documented as of this encounter Visit Diagnoses Not on filedocumented in this encounter Care Teams Infant Childcare Provider Relationship Specialty Start Date End Date Souleymane Dangelo MD PCP - General 12/27/99 11/27/[address] [place] [address] documented as of this encounter
--- OUTSIDE RECORDS SUMMARY | 2022-05-13 16:38 | XMS_ITS | Encounter Summary ---
:1955 Author Organization [facility] Address [address] [address] Care Team Providers Name Role Phone Souleymane Dangelo MD Primary Care Provider Encounter Details Date Type Department Care Team Description 08/02/2004 Office Visit [facility] Blaze Erickson, H ALLUX VALGUS; Foot and Ankle DPM [facility] CALL[facility]ITIES Surgery/Podiatry [address] [place], [place] [phone] Social History Tobacco Use Types Packs/Day Years Used Date Smoking Tobacco: Never Alcohol Use Standard Drinks/Week Comments Not Asked 0 (1 standard drink = 0.6 oz pure alcoho l) Sex Assigned at Date Recorded Not on file documented as of this encounter Last Filed Vital Signs Vital Sign Reading Time Taken Comments Blood Pressure 134/56 08/02/2004 2:00 PM NEON SIGN INSTALLER Pulse 75 08/02/2004 2:00 PM NEON SIGN INSTALLER Temperature 37.2 ??C (99 ??F) 08/02/2004 2:00 PM NEON SIGN INSTALLER Respiratory Rate - - Oxygen Saturation - - Inhaled Oxygen Concentration - - Weight - - Height - - Body Mass Index - - documented in this encounter Progress Notes 08/02/2004 2:00 PM NEON SIGN INSTALLER Amy Nicole is a 49 yr, female here regarding right FOOT {PODIATRY SYMPTOMS:[address]1934}plantar wart. Pain assessment:YES. PAIN SCALE-1 Location: next to the 5th toe, Frequency: Everyday, Description: sharp and burning pain, Onset: How long have you had this problem?: 1 month(s). Has anyone else evaluated/treated this problem? NO. Name of Provider Dr.Micheal Mendoza Did that Provider refer you to Podiatry? Yes Injury: No. Litigation: NO PCP is: Souleymane Dangelo MD Do you have sleep apnea? NO Are you diabetic? NO Tobacco Status reviewed? (see History Social-Substance) -NO. BP 134/56 Pulse 75 Temp 99 Current outpatient prescriptions: JOHN 60MG ORAL TABS,TAKE 1 TABLET TWICE DAILY,Disp: 180,Rfl: 1 MULTIPLE VITAMIN TABS,1 tab qd,Disp: ,Rfl: 0 XANAX 0.25MG ORAL TABS,1 pill three times daily,Disp: 10,Rfl: 0 Allergies to Latex? NO Nka , No Known Drug Allergy Jolie Gay MA, 2:38 PM, 08/02/2004 Blaze Erickson - 08/02/2004 12:00 AM CSTHISTORY: A 49-year-old patient here for evaluation regarding interdigital pain. This patient has had problems now for several months. She denies issues prior to that time. She has intermittent pain that is described as burning. Her pain is rated as a 1. The pain is present about 10 times per day over the past few months. She tried athlete's foot ointment and she had a fungal culture that was negative. She had seen Dr. Dangelo in the past. She did not get relief with her local treatment and she denies past foot issues. She has bunion foot, did not really hurt. SYSTEM REVIEW: Negative for weight change, trauma, open sores or fever. PAST MEDICAL HISTORY: Remarkable for anxiety. She denies diabetes history. She has no known drug allergies or latex allergies. FAMILY HISTORY: The patient denies family history of foot troubles, rheumatoid arthritis or diabetes. 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 She has four children and likes to walk for exercise. She does not smoke or excessively drink. EXAM: Patient in no acute distress or pain. Her vitals are reviewed on today's nursing note. Interdigital callusing is noted deep in the fourth interdigital space bilaterally. This is much more noticeable in the right than left side. She has a lump that is macerated. Debridement reveals no underlying ulcer. Past fungal culture was negative. The fifth toe has medial lumps at the PIPJs. This patient has quite significant bunion deformity that likely contributes to crowding of the toes in the shoes. She has no other calluses or areas of pain. Foot pulses are normal. She has intact and normal hair growth with healthy-appearing skin. Normal sensation is present and I did not appreciate neuritis or numbness. This patient has no other derm issues. No evidence of shoe pressure is noted over the bunions. IMPRESSION: Bunion and interdigital callus both feet. RECOMMENDATION: This patient needs to find shoes that do not crowd her toes. This problem will likely be permanent if she is not able to solve the shoe fit issue. I suggested Stephon or similar-shaped shoes that are square. The patient understands that we may need to remove the underlying bone if there is any hope of getting rid of the callused areas. She is at risk of open sores or deep fungal infections. We discussed careful drying measures and that would be critical. The bunion is likely contributing to this problem. D: cc: Souleymane Dangelo MD SIGN INSTALLER documented in this encounter Plan of Treatment Upcoming Encounters Date Type Specialty Care Team Description 07/07/2022 Appointment Optometry [place] V[place], OD [address] [place], [place] [address] (Wo rk) documented as of this encounter Visit Diagnoses Diagnosis Hallux valgus (acquired) Corns and callosities documented in this encounter Care Teams Museum Preparator Relationship Specialty Start Date End Date Souleymane Daneglo MD PCP - General 12/27/99 11/27/10 [address] [place] [address] documented as of this encounter
--- OUTSIDE RECORDS SUMMARY | 2022-05-13 16:38 | XMS_ITS | Encounter Summary ---
:1955 [facility] Address [address] [address] Care Team Providers Name Role Phone Souleymane Dangelo MD Primary Care Provider Encounter Details Date Type Department Care Team Description 10/31/2004 Office Visit [facility] Genaro Galvez, EYE & VISION EXAMINATION; [address] [place]; [place] [address] ASTIGMATISM NOS [phone] Social History Tobacco Use Types Packs/Day Years Used Date Smoking Tobacco: Never Alcohol Use Standard Drinks/Week Comments Not Asked 0 (1 standard drink = 0.6 oz pure alcoho l) Sex Assigned at Date Recorded Not on file documented as of this encounter Progress Notes Genaro Galvez, REYNOLD - 10/31/2004 12:00 AM GROUNDSKEEPING MAINTENANCE WORKER NDSKEEPING MAINTENANCE WORKER documented in this encounter Plan of Treatment Upcoming Encounters Date Type Specialty Care Team Description 07/07/2022 Appointment Optometry [place], OD [address] [place], [place] [address] (Wo rk) documented as of this encounter Visit Diagnoses Diagnosis Examination of eyes and vision Myopia Astigmatism, unspecified documented in this encounter Care Teams Treasury Analyst Relationship Specialty Start Date End Date Souleymane Dangelo MD PCP - General 12/27/99 11/27/10 [address] [place] [address] documented as of this encounter
--- OUTSIDE RECORDS SUMMARY | 2022-05-13 16:38 | XMS_ITS | Encounter Summary ---
:1955 Author Organization [facility] Address [address], [place] [address] Care Team Providers Name Role Phone Soulyemane Dangelo MD Primary Care Provider Encounter Details Date Type Department Care Team Description 07/07/2003 Office Visit [facility] Waldo Murillo, Jeff ENIGN NEOPLASM LG BOWEL; Gastroenterology [facility] GI MALIGNANCY [address] [facility] [address] [place] [address] [place], [place] [phone] [address] Social History Tobacco Use Types Packs/Day Years Used Date Smoking Tobacco: Never Alcohol Use Standard Drinks/Week Comments Not Asked 0 (1 standard drink = 0.6 oz pure alcoho l) Sex Assigned at Date Recorded Not on file documented as of this encounter Progress Notes Waldo Murillo - 07/07/2003 12:00 AM CDT Waldo Murillo - 07/07/2003 12:00 AM CDT documented in this encounter Plan of Treatment Upcoming Encounters Date Type Specialty Care Team Description 07/07/2022 Appointment Optometry [place] V[place] ne, OD [address] [place], [place] [address] (Wo rk) documented as of this encounter Visit Diagnoses Diagnosis Benign neoplasm of colon Family history of malignant neoplasm of gastrointestinal tract documented in this encounter Care Teams Recovery Room Rn Relationship Specialty Start Date End Date Souleymane Dangelo MD PCP - General 12/27/99 11/27/[address] [place] [address] documented as of this encounter
--- OUTSIDE RECORDS SUMMARY | 2022-05-13 16:38 | XMS_ITS | Encounter Summary ---
:1955 Author Organization [facility] Address [address], [place] [address] Care Team Providers Name Role Phone Souleymane Dangelo MD Primary Care Provider Reason for Visit Reason Onset Date Comments ANXIETY 10/07/2006 Encounter Details Date Type Department Care Team Description 10/07/2006 Telephone [facility]ac abdi Souleymane Dangelo MD ANXIETY [address] [place] [address] [place] [address] [phone] (Wo rk) Social History Tobacco Use Types [...] documented as of this encounter Nursing Notes Herminia Mcleod - 10/13/2006 9:45 AM CST Pt. notified of PA approval. States she will order picker Zyrtec. States she picked up Paxil, but has notyet started. Reports that anxiety is not bad now and did not to start since sx are not bad. To cb iffurther problems or concerns. Herminia Mcleod RN PRODUCTION DESIGNER Herminia Mcleod - 10/13/2006 8:28 AM CST Left message to call back. Herminia Mcleod RN PRODUCTION DESIGNER Oneyda Choi - 10/12/2006 8:23 AM CST Approved.. Oneyda Choi RN PRODUCTION DESIGNER Oneyda Choi - 10/07/2006 12:38 PM CST Pt notified, agrees with plan. Advised to continue taking the Paxil and to call for tapering advice if she decides to stop. Will follow for prior auth confirmation. Oneyda Choi RN PRODUCTION DESIGNER Souleymane Dangelo - 10/07/2006 12:25 PM CST Ok for paxil We have no samples of anything anymore. I did fill out the paperwork for zyrtec yesterday, hopefullywe will hear from [facility]. Souleymane Dangelo MD PRODUCTION DESIGNER Tracey Gomez RN - 10/07/2006 11:40 AM CST Pt calling and stating that she was in 10/06/06. She states that xanax was reordered and although shedoes take this on occasion. She states that she is just feeling 'out of whack' and is wondering if she could restart her Paxil. She took 10mg daily in 1998. She states that she remembers that this worked really well at the time and would like to restart this for a short amount a time. Also, pt is waiting for the PA for Zyrtec to come through. Can she have a sample or small qty rx forthis while she is waiting. Please advise Tracey Gomez R.N. PRODUCTION DESIGNER Tanner Ron - 10/07/2006 11:29 AM CST Patient would like to speak to her either provider or nurse. Name of patient's provider: dr dangelo Summarize the patient's question or concern: she was seen yesterday and has anxiety and has questions regarding going on medications Tanner Ron PRODUCTION DESIGNER documented in this encounter Plan of Treatment Upcoming Encounters Date Type Specialty Care Team Description 07/07/2022 Appointment Optometry [place] ne, OD [address] [place], [place] [address] (Wo rk) documented as of this encounter Visit Diagnoses Diagnosis Allergic rhinitis, cause unspecified - P rimary documented in this encounter Care Teams Lens Finisher Relationship Specialty Start Date End Date Souleymane Dangelo MD PCP - General 12/27/99 11/27/[address] [place] [address] documented as of this encounter
--- OUTSIDE RECORDS SUMMARY | 2022-05-13 16:38 | XMS_ITS | Encounter Summary ---
:1955 Author Organization [facility] Address [address] [address] Care Team Providers Name Role Phone Souleymane Dangelo MD Primary Care Provider Encounter Details Date Type Department Care Team Description 10/06/2006 Correspondence [facility] Souleymane Dangelo [facility] Virginia Frost MD [address] [facility] [address] [facility] [place] [address] [address] [phone] [place] [address] (Wo rk) Social History Tobacco [...] documented as of this encounter Progress Notes Souleymane Dangelo - 10/06/2006 12:00 AM SMALL BUSINESS CONSULTANT L BUSINESS CONSULTANT documented in this encounter Plan of Treatment Upcoming Encounters Date Type Specialty Care Team Description 07/07/2022 Appointment Optometry [place] ne, OD [address] [place], [place] [address] (Wo rk) documented as of this encounter Visit Diagnoses Not on filedocumented in this encounter Care Teams Email Marketing Specialist Relationship Specialty Start Date End Date Souleymane Dangelo MD PCP - General 12/27/99 11/27/[address] [place] [address] documented as of this encounter
--- OUTSIDE RECORDS SUMMARY | 2022-05-13 16:38 | XMS_ITS | Encounter Summary ---
:1955 Author Organization [facility] Address [address] [place] [address] Care Team Providers Name Role Phone Souleymane Dangelo MD Primary Care Provider Encounter Details Date Type Department Care Team Description 10/16/2003 Office Visit [facility] Jordan Dial, EYE & VISION EXAMINATION; [address] [place] [address] [phone] [place], [place] [phone] Social History Tobacco Use Types Packs/Day Years Used Date Smoking Tobacco: Never Alcohol Use Standard Drinks/Week Comments Not Asked 0 (1 standard drink = 0.6 oz pure alcoho l) Sex Assigned at Date Recorded Not on file documented as of this encounter Progress Notes Jordan Dial - 10/16/2003 12:00 AM PROFESSOR CRIMINAL JUSTICE ESSOR CRIMINAL JUSTICE documented in this encounter Plan of Treatment Upcoming Encounters Date Type Specialty Care Team Description 07/07/2022 Appointment Optometry [place] ne, OD [address] [place], [place] [address] (Wo rk) documented as of this encounter Visit Diagnoses Diagnosis Examination of eyes and vision Hypermetropia documented in this encounter Care Teams Supervisor Volunteer Services Relationship Specialty Start Date End Date Souleymane Dangelo MD PCP - General 12/27/99 11/27/[address] [place] [address] documented as of this encounter
--- OUTSIDE RECORDS SUMMARY | 2022-05-13 16:38 | XMS_ITS | Encounter Summary ---
:1955 Author [facility] Address [address], [place] [address] Care Team Providers Name Role Phone Souleymane aDngelo MD Primary Care Provider Encounter Details Date Type Department Care Team Description 11/05/2005 Office Visit [facility] Genaro Galvez, EYE & VISION EXAMINATION; [address] [place]; [place] [address] ASTIGMATISM NOS [phone] Social History Tobacco Use Types Packs/Day Years Used Date Smoking Tobacco: Never Alcohol Use Standard Drinks/Week Comments Not Asked 0 (1 standard drink = 0.6 oz pure alcoho l) Sex Assigned at Date Recorded Not on file documented as of this encounter Progress Notes Genaro Galvez, REYNOLD - 11/05/2005 12:00 AM HEALTH ADVISOR TH ADVISOR documented in this encounter Plan of Treatment Upcoming Encounters Date Type Specialty Care Team Description 07/07/2022 Appointment Optometry [place], OD [address] [place], [place] [address] (Wo rk) documented as of this encounter Visit Diagnoses Diagnosis Examination of eyes and vision Myopia Astigmatism, unspecified documented in this encounter Care Teams Black Off Worker Relationship Specialty Start Date End Date Souleymane Dangelo MD PCP - General 12/27/99 11/27/10 [address] [place] [address] documented as of this encounter
--- OUTSIDE RECORDS SUMMARY | 2022-05-13 16:38 | XMS_ITS | Encounter Summary ---
:1955 Author Organization [facility] Address [address] [place] [address] Care Team Providers Name Role Phone Souleymane Dangelo MD Primary Care Provider Reason for Visit Reason Onset Date Comments QUESTIONS, GENERAL 06/22/2006 Encounter Details Date Type Department Care Team Description 06/22/2006 Telephone [facility] Souleymane Dangelo, QUEST IONS, GENERAL Appointment Center [address] [place], [place] [address] [phone] [place] [address] (Wo rk) Social History Tobacco Use Types Packs/Day Years Used Date Smoking Tobacco: Never Alcohol Use Standard Drinks/Week Comments Not Asked 0 (1 standard drink = 0.6 oz pure alcoho l) Sex Assigned at Date Recorded Not on file documented as of this encounter Nursing Notes 06/22/2006 11:59 PM CDT >> KEYSHA MARTIN ThuJun 22, 2006 1:23 PM Orders placed. Keysha Martin LPN >> ONEYDA DÍAZ ThuJun 22, 2006 11:22 AM Contacted pt. She has had flu vaccines before without complications. No contraindication to have flu shot before lab. There are no open orders for lab. Pt. has RHM scheduled for 07/23/06. Will route to nurse for pre-vi sit planning. Pt. aware orders will be placed. Oneyda Díaz RN >> JACQUELINE BECERRA ThuJun 22, 2006 10:57 AM Patient would like to speak to her either provider or nurse. Name of patient's provider: Dr. Dangelo Summarize the patient's question or concern: Pt has labs scheduled 07/16/06. She is having the flu s hot on the day before, 07/15/06. She is wondering if the flu shot will interfere with her labwork. Jacqueline Bailey McQuaid documented in this encounter Plan of Treatment Upcoming Encounters Date Type Specialty Care Team Description 07/07/2022 Appointment Optometry Los Vences ne, OD [address] [place], [place] [address] (Wo rk) documented as of this encounter Results TSH, SENSITIVE (WITH REFLEX) (07/16/2006 7:54 AM VACUUM TECHNICIAN) athologist Signature TSH, with 2.87 0.3 - 5.0 [facility] Reflex uIU/ml Specimen Anatomical Collection Method Collection Time Receive d Time (Source) Location / / Volume Laterality 07/16/2006 7:54 AM 6 7:55 VACUUM TECHNICIAN AM VACUUM TECHNICIAN Souleymane Dangelo MD LAB_1 Performing Organization Address City/State/ZIP Code Phon e Number [facility] [phone] [address] HEMOGRAM/PLTS (07/16/2006 7:54 AM VACUUM TECHNICIAN) athologist Signature WBC 8.6 4.0 - 11.0 [facility] k/ul Comment: All Parameters Rechecked RBC 4.21 4.0 - 5.2 M/ul [facility] Hemoglobin 13.3 12.0 - 16.0 g/dl [facility] RS HCT 38.2 36.0 - 46.0 % [facility] MCV 90.8 80 - 100 fl [facility] MCH 31.7 26 - 34 pg [facility] MCHC 35.0 32 - 36 % [facility] RDW 13.3 11.5 - 14.5 % [facility] Platelets 371 150 - 450 k/ul [facility] Specimen Anatomical Collection Method Collection Time Receive d Time (Source) Location / / Volume Laterality 07/16/2006 7:54 AM 6 7:55 VACUUM TECHNICIAN AM VACUUM TECHNICIAN Souleymane Dangelo MD LAB_1 Performing Organization Address [facility] Phon e Number [facility] [phone] [phone] GLUCOSE - FASTING > 8 HRS FASTING (V77.1) (07/16/2006 7:54 AM VACUUM TECHNICIAN) P athologist Signature Glucose 87 70 - 100 [facility] mg/dl Hours Fasting 12 hours [facility] Specimen Anatomical Collection Method Collection Time Receive d Time (Source) Location / / Volume Laterality 07/16/2006 7:54 AM 6 7:55 VACUUM TECHNICIAN AM VACUUM TECHNICIAN Souleymane Dangelo MD LAB_1 Performing Organization Address [facility] Phon e Number [facility] [phone] [address] (ABNORMAL) CHOLESTEROL LIPID PANEL FAST >12HR (07/16/2006 7:54 AM VACUUM TECHNICIAN) P athologist Signature Cholesterol 224 (H) <200 mg/dl [facility] Comment: Result should not be interpreted without the patient's history of cardiovascular risk factors. Triglyceride 130 <200 mg/dl [facility] HDL 52 >35 mg/dl [facility] LDL, Calc. 146 mg/dl [facility] Hours Fasting 12 hours [facility] Specimen Anatomical Collection Method Collection Time Receive d Time (Source) Location / / Volume Laterality 07/16/2006 7:54 AM 6 7:55 VACUUM TECHNICIAN AM VACUUM TECHNICIAN Souleymane Dangelo MD LAB_1 Performing Organization Address [facility] Phon e Number [facility] [phone] [phone] documented in this encounter Visit Diagnoses Diagnosis Screening for lipoid disorders Screening for diabetes mellitus Screening for iron deficiency anemia Screening for thyroid disorder documented in this encounter Care Teams Assembler Cards And Announcements Relationship Specialty Start Date End Date Souleymane Dangelo MD PCP - General 12/27/99 11/27/10 [facility] [place] [address] documented as of this encounter
--- OUTSIDE RECORDS SUMMARY | 2022-05-13 16:38 | XMS_ITS | Encounter Summary ---
:1955 Author Organization [facility] Address [address] [place] [address] Care Team Providers Name Role Phone Souleymane Dangelo MD Primary Care Provider Encounter Details Date Type Department Care Team Description 03/31/2003 Correspondence [facility] Unknown, Reg ions [facility] Physician [facility] PT- notice of [address] [facility] [address] [place] [address] [facility] [phone] [place] [address] Social History Tobacco Use Types Packs/Day Years Used Date Smoking Tobacco: Never Alcohol Use Standard Drinks/Week Comments Not Asked 0 (1 standard drink = 0.6 oz pure alcoho l) Sex Assigned at Date Recorded Not on file documented as of this encounter Progress Notes Unknown, Physician - 03/31/2003 12:00 AM CDT documented in this encounter Plan of Treatment Upcoming Encounters Date Type Specialty Care Team Description 07/07/2022 Appointment Optometry [place] Vences ne, OD [address] [place], [place] [address] (Wo rk) documented as of this encounter Visit Diagnoses Not on filedocumented in this encounter Care Teams Oil Burner Journeyman Relationship Specialty Start Date End Date Souleymane Dangelo MD PCP - General 12/27/99 11/27/10 [address] [place] [address] documented as of this encounter
--- OUTSIDE RECORDS SUMMARY | 2022-05-13 16:38 | XMS_ITS | Encounter Summary ---
:1955 Author Organization [facility] Address [address] [address] Care Team Providers Name Role Phone Souleymane Dangelo MD Primary Care Provider Encounter Details Date Type Department Care Team Description 05/08/2004 Office Visit [facility] Souleymane Dangelo, SKIN CANCER, SITE UNSPECIFIED; Practice MD PREVENTIVE CARE EXAM; [address] [place] (UNSPECIFIED); [place] [address] [address] SCREENING MAL NEOP-CERVIX [phone] [place], [place] [phone] (Wo rk) Social History Tobacco Use Types Packs/Day Years Used Date Smoking Tobacco: Never Alcohol Use Standard Drinks/Week Comments Not Asked 0 (1 standard drink = 0.6 oz pure alcoho l) Sex Assigned at Date Recorded Not on file documented as of this encounter Last Filed Vital Signs Vital Sign Reading Time Taken Comments Blood Pressure 130/70 05/08/2004 3:00 PM CDT Pulse 80 05/08/2004 3:00 PM CDT Temperature 37.2 ??C (98.9 ??F) 05/08/2004 3:00 PM CDT Respiratory Rate 24 05/08/2004 3:00 PM CDT Oxygen Saturation - - Inhaled Oxygen Concentration - - Weight 74.4 kg (164 lb) 05/08/2004 3:00 PM CDT Height - - Body Mass Index 25.88 01/30/2003 8:00 AM CDT documented in this encounter Progress Notes 05/08/2004 3:00 PM CDT Amy Nicole is here today for pe and pap.called with negative manuel per md orders Are you having pain today, that you want to discuss with the provider? -YES BP was taken on the RIGHT arm. Large cuff used- YES Method of control? -none PARA Patient does Self Breast exams? -SOMETIMES. Mammogram done? -Yes, date: 02/28/04 Where: [facility] PAP done? -{YES,DATE:01/30/01 Bone Density study done? -No testing done. CHOLESTEROL (mg/dl) Date Value 03/23/2001 217 * HDL (mg/dl) Date Value 03/23/2001 44 LDL, CALC. (mg/dl) Date Value 03/23/2001 142 TRIGLYCERIDE (mg/dl) Date Value 03/23/2001 155 Immunizations reviewed? -YES Do you ever feel physically threatened or emotionally afraid? -NO. Tobacco Status reviewed? (see History: Social-Substance) -YES canteen attendant offered? -DECLINED. Aspirin taken daily? - NO Health Education given? -NO. patient's phone number [phone] (home) [phone] (work) Terri Baumann LPN 05/08/2004 3:11 PM Current outpatient prescriptions: JOHN 60MG ORAL TABS,TAKE 1 TABLET TWICE DAILY,Disp: 180,Rfl: 1 MULTIPLE VITAMIN TABS,1 tab qd,Disp: ,Rfl: 0 XANAX 0.25MG ORAL TABS,1 pill three times daily,Disp: 10,Rfl: 0 Nka, No Known Drug Allergy Souleymane Dangelo Margot - 05/08/2004 12:00 AM CDTPROBLEM: 1. PHYSICAL EXAMINATION. 2 WART. 3. SKIN LESION ON TOES. SUBJECTIVE: Amy is here for routine physical and the problems above. She is to [place]. She continues to work at [employer] but anticipates that in about October her job will be gone as they start laying off people in her department before [employer] closes its office her. She is not sure what she will do next. She is also returned to college and is currently taking her general education classes. Past medical history - Anxiety. Past surgical history - None. Family history - Father had idiopathic pulmonary fibrosis and at age 62. Mother has hypertension, hyperthyroid and asthma. Two sisters with asthma. Health habits - She is a nonsmoker, drinks alcohol very rarely. No drug use. Doesn't get any regular exercise at this point and we discussed at length, nutrition is good. Review of systems - two complaints, one a growth on her toe that turned out to be a wart. Second - sort of a painful discoloration in between the 4th and 5th toes on the right foot and little bit discoloration that is painless in between the same toes on the opposite foot. Otherwise, complete review of systems is negative. OBJECTIVE: On exam, Amy is a 49 year-old in no distress. Blood pressure is 130/70. Pulse is 80. Temperature is 98.9. Respirations are 24. Weight is 164 pounds. TMs and canals are clear. DUTCH, EOMI, oropharynx is benign. Neck is supple without adenopathy. There is no thyromegaly. Respirations are normal. Lungs are clear. Heart - regular rate and rhythm without murmur, gallop or rub or thrill. Abdomen is benign. No hepatosplenomegaly. No mass. Extremities without clubbing, cyanosis, or edema. Skin is normal. Reflexes, strength and tone are normal. Breasts show no lump, no skin change, no discharge, no axillary adenopathy. External genitalia - normal in appearance. Cervix - normal in appearance. Pap smear was taken. Uterus not enlarged. No adnexal masses or tenderness. Skin exam will be documented below. ASSESSMENT/PLAN: 1. Normal screening PE. Had a colonoscopy earlier this year and had a benign polyp. And due for next in five years. Had mammogram this summer that was normal. Had tetanus she believes one year ago. Otherwise up-to-date on health maintenance. 2. Wart. There was a single wart on her toe that was frozen with 2 freezes of liquid nitrogen. 3. Skin lesion - toes. In the interdigital area between the 4th and 5th toe, there was quite a lot of callous that was darkened. I used a scalpel to debride some of the callus and sent some of the skin scrapings from benign the callus for a MANUEL and the MANUEL was negative. I am uncertain the cause of this, however, she has some notable foot deformities including significant bunions and other significant calluses. I will send her to podiatry to have this evaluated and treated there. She is agreeable to that. P cc: documented in this encounter Plan of Treatment Upcoming Encounters Date Type Specialty Care Team Description 07/07/2022 Appointment Optometry Los Vences, OD [address] [facility] [place], [place] [address] (Wo rk) documented as of this encounter Visit Diagnoses Diagnosis Other malignant neoplasm of skin, site u nspecified Routine general medical examination at [facility] Routine general medical examination at [facility] facility Viral warts, unspecified Screening for malignant neoplasm of the cervix documented in this encounter Care Teams Film Flat Inspector Relationship Specialty Start Date End Date Souleymane Dangelo MD PCP - General 12/27/99 11/27/[address] [place] [address] documented as of this encounter
--- OUTSIDE RECORDS SUMMARY | 2022-05-13 16:38 | XMS_ITS | Encounter Summary ---
:1955 Author [facility] Address [address], [place] [address] Care Team Providers Name Role Phone Souleymane Dangelo MD Primary Care Provider Encounter Details Date Type Department Care Team Description 07/07/2003 Orders Only [facility] Daja Wiley MD Laboratory [address] [place] [address] [place] [address] [phone] Social History Tobacco Use Types Packs/Day Years [...] Vences ne, OD [address] [place], [place] [address] (Wo rk) documented as of this encounter Procedures Procedure Name Priority Date/Time Associated Diagnosis Comme nts SURGICAL PATH Routine 07/07/2003 12:00 AM Results for this CDT procedure are i n the results section . documented in this encounter Results SURGICAL PATH (07/07/2003 12:00 AM CDT) [facility] Method Time Signature 9911 (NOTE) [facility] Surgical Final Report Patient Name: AMY NICOLE Taken: 07/07/03 Received: 07/07/03 Reported: 07/10/03 Physician(s): WALDO MURILLO ([id number]) ? Final Pathologic Diagnosis Colon, rectum, biopsy - ?1. ??Hyperplastic polyp ?2. ??No adenomatous change or malignancy seen /07/10/03 Electronically Signed Out By ? Cammy Kirby MD ??([id number] ) Procedures/Addenda Clinical History Family history of colon cancer first degree relative Gross Description The specimen is labeled colon-rectum. The specimen consists of a 0.5 cm in diameter red brown polyp. ??The specimen is entirely submitted in one cassette. ??dm/ks 07/10/03 Microscopic Description Microscopic examination is performed on one slide. ?? /07/10/03 Cammy Kirby MD ??([id number] ) Specimen (Source) Anatomical Location Collection Method / Collectio n Time Received Time / Laterality Volume 07/07/2003 07/07/2003 Waldo Murillo MD LAB_1 Performing Organization Address City/State/ZIP Code Phon e Number [address] [id number] [place], [place] [phone] documented in this encounter Visit Diagnoses Not on filedocumented in this encounter Care Teams Gate Manager Relationship Specialty Start Date End Date Souleymane Dangelo MD PCP - General 12/27/99 11/27/[address] [place] [address] documented as of this encounter
--- OUTSIDE RECORDS SUMMARY | 2022-05-13 16:38 | XMS_ITS | Encounter Summary ---
:1955 Author Organization [facility] Address [address] [address] Care Team Providers Name Role Phone Souleymane Dangelo MD Primary Care Provider Encounter Details Date Type Department Care Team Description 05/08/2004 Orders Only [facility] Prac abdi Souleymane Dangelo MD [address] [place] [address] [place] [address] [phone] (Wo rk) Social History Tobacco Use Types [...] [place] ne, OD [address] [place], [place] [address] (Wo rk) documented as of this encounter Procedures Procedure Name Priority Date/Time Associated Diagnosis Comme nts PAP TEST, ROUTINE Routine 05/08/2004 12:00 AM Res ults for this CDT procedure are i n the results section. documented in this encounter Results PAP TEST, ROUTINE (05/08/2004 12:00 AM CDT) Component Value Ref Test Analysis Performed At [facility] Range Method Time Signature Cytology, Pap (NOTE) [facility] Truck Driver Teamster Cytology Report Patient Name: AMY NICOLE Taken: 05/08/04 Received: 05/09/04 Reported: 05/17/04 Physician(s): SOULEYMANE DANGELO ([id number]) ?Source of Specimen Liquid routine Pap, cervical/endocervical: ?Specimen Adequacy ?Satisfactory for evaluation. ??Endocervical component present. ? Final Cytologic Interpretation/Result NEGATIVE FOR INTRAEPITHELIAL LESION OR MALIGNANCY (NILM) ? dt1/05/17/04 Electronically Signed Out By KAYODE Millan (ASCP) KAYODE Shaw (ASCP) KAYODE Millan (ASCP) ?Pap Smear History ?Date of Last Menstrual Period: ? 04/24/04 ?Other Clinical Conditions: ?LAST PAP: NORMAL HPV reflex testing requested with interpretation of ASCUS ? Specimen (Source) Anatomical Location Collection Method / Collectio n Time Received Time / Laterality Volume 05/08/2004 05/09/2004 Souleymane Dangelo MD LAB_1 Performing Organization Address City/State/ZIP Code Phon e Number [address] [address] [place], [place] [phone] documented in this encounter Visit Diagnoses Not on filedocumented in this encounter Care Teams Broommaking Supervisor Relationship Specialty Start Date End Date Souleymane Dangelo MD PCP - General 12/27/99 11/27/[address] [place] [address] documented as of this encounter
--- OUTSIDE RECORDS SUMMARY | 2022-05-13 16:38 | XMS_ITS | Encounter Summary ---
:1955 Author Organization [facility] Address [address], [place] [address] Care Team Providers Name Role Phone Souleymane Dangelo MD Primary Care Provider Reason for Visit Reason Comments Contact Lens update contact rx , [place] good, using +1.50 readers Encounter Details Date Type Department Care Team Description 12/07/2006 Office Visit [facility], Examination of Eyes and Visi on (Primary Dx); [address] Sera, OD Myopia; [place] [address] [address] Presbyopia [phone] [place], [place] [address] Social History Tobacco Use [...] this encounter Progress Notes Sera Vences - 12/07/2006 1:44 PM CDT HPI: Chief Complaint Patient presents with ??? Contact Lens update contact rx , [place] good, using +1.50 readers History Reviewed: Today's rooming note, PMH, ROS, Family History, Social History, Surgical History, Meds, Allergies, Vitals and Relevant Results Assessment: Myopia, astigmatism, presbyopia Ocular health normal See Documentation Flowsheets and/or Summary Report Plan:Order CL's Contact lens prescription: see script Spectacle Prescription: see script Return to clinic in 1 year(s) Sera Vences, REYNOLD documented in this encounter Plan of Treatment Upcoming Encounters Date Type Specialty Care Team Description 07/07/2022 Appointment Optometry Los Vences ne, OD [address] [place], [place] [address] (Wo rk) documented as of this encounter Visit Diagnoses Diagnosis Examination of eyes and vision - Primary Myopia Presbyopia documented in this encounter Care Teams Paper Handler Relationship Specialty Start Date End Date Souleymane Dangelo MD PCP - General 12/27/99 11/27/[address] [place] [address] documented as of this encounter
--- OUTSIDE RECORDS SUMMARY | 2022-05-13 16:38 | XMS_ITS | Encounter Summary ---
:1955 Author [facility] Address [address] [place] [address] Care Team Providers Name Role Phone Souleymane Dangelo MD Primary Care Provider Encounter Details Date Type Department Care Team Description 11/06/2003 Office Visit [facility] Jordan Dial, OD [place]OP[place] [address] [place] [address] [place] [address] [phone] (Wo rk) Social History Tobacco Use Types Packs/Day Years Used Date Smoking Tobacco: Never Alcohol Use Standard Drinks/Week Comments Not Asked 0 (1 standard drink = 0.6 oz pure alcoho l) Sex Assigned at Date Recorded Not on file documented as of this encounter Progress Notes Jordan Dial - 11/06/2003 12:00 AM INDOOR LANDSCAPER/GARDENER OR LANDSCAPER/GARDENER documented in this encounter Plan of Treatment Upcoming Encounters Date Type Specialty Care Team Description 07/07/2022 Appointment Optometry Los Vences, OD [address] [place], [place] [address] (Wo rk) documented as of this encounter Visit Diagnoses Diagnosis Myopia documented in this encounter Care Teams Environmental Services Supervisor Relationship Specialty Start Date End Date Souleymane Dangelo MD PCP - General 12/27/99 11/27/[address] [place] [phone] documented as of this encounter
--- OUTSIDE RECORDS SUMMARY | 2022-05-13 16:38 | XMS_ITS | Encounter Summary ---
:1955 Author Organization [facility] Address [address], [place] [address] Care Team Providers Name Role Phone Souleymane Dangelo MD Primary Care Provider Reason for Visit Reason Comments PE AND PAP Encounter Details Date Type Department Care Team Description 10/06/2006 Office Visit [facility] Souleymane Dangelo, Prev entative Health Care (Primary Dx); Practice Anxiety State, Unspecified; [address] [facility] Allergic Rhinitis, Cause Uns pecified; [place] [address] [address] [phone] [place], [place] [phone] (Wo rk) Social History Tobacco Use Types [...] Sign Reading Time Taken Comments Blood Pressure 120/70 10/06/2006 1:20 PM PAINT COATING MACHINE OPERATOR Pulse 76 10/06/2006 1:20 PM PAINT COATING MACHINE OPERATOR Temperature - - Respiratory Rate 16 10/06/2006 1:20 PM PAINT COATING MACHINE OPERATOR Oxygen Saturation - - Inhaled Oxygen Concentration - - Weight 71.7 kg (158 lb) 10/06/2006 1:20 PM PAINT COATING MACHINE OPERATOR Height 169.5 cm (5' 6.75) 10/06/2006 1:20 PM PAINT COATING MACHINE OPERATOR Body Mass Index 24.93 10/06/2006 1:20 PM PAINT COATING MACHINE OPERATOR documented in this encounter Progress Notes Souleymane Dangelo - 10/06/2006 3:24 PM CST S> Amy Nicole is a 51 yr old female in for for routine health maintenance. Current concerns: 1- persistent wart on foot has been doing home treatment for a long time without benefit. 2- difficulty with congestion secondary to her allergic rhinitis. Claritin not working and pastora stopped working in past. Present dietary habits: three meals a day and adequate fruit and vegetables Present exercise habits: Weekly, but just set up a treadmill at home to use I have reviewed the family, medical, social and surgical histories. Review of systems include: Except for above, complete ROS negative including: HEENT, lungs, heart, GI,, systemic, neuro, muscular, endocrine, derm O> General: 51 yr pleasant female who appears her stated age. BP 120/70 Pulse 76 Resp 16 Ht 5' 7 (1.695 m) Wt 158 lbs (71.668 kg) LMP 09/22/2006 HEENT: Normal Lungs: clear to auscultation, no wheezes or rales Breasts: no lymphedema, no nipple changes, no masses or tenderness CV: regular rate and rhythm, normal S1 and S2 without murmur or click Abd: soft, non-tender, no masses, no hepatomegaly or splenomegaly. : normal vagina, cervix, uterus, adnexa. Pap smear obtained. Skin: single wart on foot shaved and frozen with liquid nitrogen. Otherwise no abnormalities noted Labs reviewed and discussed. A> Preventive Evaluation and Exam Wart treated. High cholesterol - she will start an exercise program nad will recheck in a few years. P> See today's orders for details Patient counseled regarding: five a day fruits and veg increasing physical activity Patient counseled regarding future preventative services needs. Souleymane Dangelo MD T COATING MACHINE OPERATOR documented in this encounter Nursing Notes 10/06/2006 1:20 PM CST >> DIANA Remy Oct 06, 2006 1:39 PM Does occ. Self breast exam. documented in this encounter Plan of Treatment Upcoming Encounters Date Type Specialty Care Team Description 07/07/2022 Appointment Optometry [place] ne, OD [address] [place], [place] [address] (Wo rk) documented as of this encounter Procedures Procedure Name Priority Date/Time Associated Diagnosis Comme nts PAP TEST, ROUTINE Routine 10/06/2006 1:20 PM Resu lts for this PAINT COATING MACHINE OPERATOR procedure are i n the results section. documented in this encounter Results PAP TEST, ROUTINE (10/06/2006 1:20 PM PAINT COATING MACHINE OPERATOR) Component Value Ref Test Analysis Performed At [facility] Range Method Time Signature Cytology, (NOTE) [facility] Pap Bundler Cytology Report Patient Name: AMY NICOLE Taken: 10/06/2006 Received: 10/07/2006 Reported: 10/08/2006 Physician(s): SOULEYMANE DANGELO ([id number]) ?Source of Specimen Liquid routine Pap, cervical/endocervical: ?Specimen Adequacy ?Satisfactory for evaluation. ??Endocervical component present. ? Final Cytologic Interpretation/Result NEGATIVE FOR INTRAEPITHELIAL LESION OR MALIGNANCY (NILM) ?Other Cytologic Findings ?Inflammation ? ds1/10/08/2006 Electronically Signed Out By Rena Sova, CT (ASCP) Rena Sova, CT (ASCP) ?Pap Smear History ?Date of Last Menstrual Period: ? 09/22/06 ?Contraceptive History: ?Not Stated/Unknown ?Other Clinical Conditions: ?LAST PAP: Normal HPV reflex testing requested with interpretation of ASCUS ? Specimen Anatomical Collection Method Collection Time Receive d Time (Source) Location / / Volume Laterality 10/06/2006 1:20 PM 7 7:20 PAINT COATING MACHINE OPERATOR AM PAINT COATING MACHINE OPERATOR Souleymane Dangelo MD LAB_1 Performing Organization Address City/State/ZIP Code Phon e Number [facility] [phone] [address] documented in this encounter Visit Diagnoses Diagnosis Preventative health care - Primary Routine general medical examination at a health care facility Anxiety state, unspecified ([facility]) Anxiety state, unspecified Allergic rhinitis, cause unspecified Wart Viral warts, unspecified documented in this encounter Care Teams Slubber Frame Changer Relationship Specialty Start Date End Date Souleymane Dangelo MD PCP - General 12/27/99 11/27/[address] [place] [id number] documented as of this encounter
--- OUTSIDE RECORDS SUMMARY | 2022-05-13 16:38 | XMS_ITS | Encounter Summary ---
:1955 Author Organization [facility] Address [address] [address] Care Team Providers Name Role Phone Souleymane Dangelo MD Primary Care Provider Reason for Visit Reason Onset Date Comments Medication Request 02/03/2006 med request Encounter Details Date Type Department Care Team Description 02/03/2006 Telephone [facility] Souleymane Dangelo, [facility] cation Request Practice (med request ) [address] [place] [address] [place] [address] [phone] (Wo rk) Social History Tobacco Use Types Packs/Day Years Used Date Smoking Tobacco: Never Alcohol Use Standard Drinks/Week Comments Not Asked 0 (1 standard drink = 0.6 oz pure alcoho l) Sex Assigned at Date Recorded Not on file documented as of this encounter Nursing Notes 02/03/2006 11:59 PM CDT >> GOYO JACOB ThuFebruary 03, 2006 11:14 AM Pt. notified. Herminia Jacob RN >> SOULEYMANE DANGELO nakia February 03, 2006 10:09 AM Rx sent in. Souleymane Dangelo MD >> GOYO JACOB ThuFebruary 03, 2006 9:45 AM States her insurance covers Claritin if she has RX. Would like Rx to [facility] to 02-04-06.Herminia Jacob RN >> SRINIVASA PEDROZA ThuFebruary 03, 2006 9:37 AM pt. would like rx. for clartin. please send rx to our pharmacy. documented in this encounter Plan of Treatment Upcoming Encounters Date Type Specialty Care Team Description 07/07/2022 Appointment Optometry [place]ences, OD [address] [facility] [place] [place] [address] (Wo rk) documented as of this encounter Visit Diagnoses Not on filedocumented in this encounter Care Teams Hide And Skin Fleshing Machine Operator Relationship Specialty Start Date End Date Souleymane Dangelo MD PCP - General 12/27/99 11/27/[address] [place] [address] documented as of this encounter
--- OUTSIDE RECORDS SUMMARY | 2022-05-13 16:38 | XMS_ITS | Encounter Summary ---
:1955 Author Organization [facility] Address [address] [place] [address] Care Team Providers Name Role Phone Souleymane Dangelo MD Primary Care Provider Encounter Details Date Type Department Care Team Description 04/13/2006 Correspondence None [facility], Provider CONSENT AND RELEASE Social History Tobacco Use Types Packs/Day Years Used Date Smoking Tobacco: Never Alcohol Use Standard Drinks/Week Comments Not Asked 0 (1 standard drink = 0.6 oz pure alcoho l) Sex Assigned at Date Recorded Not on file documented as of this encounter Progress Notes Hp Rois, Provider - 04/13/2006 12:00 AM CDT documented in this encounter Plan of Treatment Upcoming Encounters Date Type Specialty Care Team Description 07/07/2022 Appointment Optometry [place] V[place] ne, OD [address] [place], [place] [address] (Wo rk) documented as of this encounter Visit Diagnoses Not on filedocumented in this encounter Care Teams Putty Maker Relationship Specialty Start Date End Date Souleymane Dangelo MD PCP - General 12/27/99 11/27/[address] [place] [address] documented as of this encounter
--- OUTSIDE RECORDS SUMMARY | 2022-05-13 16:38 | XMS_ITS | Encounter Summary ---
:1955 Author Organization [facility] Address [address] [place] [address] Care Team Providers Name Role Phone Souleymane Dangelo MD Primary Care Provider Encounter Details Date Type Department Care Team Description 04/18/2004 Notes/Orders [facility] Rachelle Larry, Department RN [address] [place] [place] [address] Social History Tobacco Use Types Packs/Day Years Used Date Smoking Tobacco: Never Alcohol Use Standard Drinks/Week Comments Not Asked 0 (1 standard drink = 0.6 oz pure alcoho l) Sex Assigned at Date Recorded Not on file documented as of this encounter Plan of Treatment Upcoming Encounters Date Type Specialty Care Team Description 07/07/2022 Appointment Optometry [place] ne, OD [address] [facility] [place], [place] [address] (Wo rk) documented as of this encounter Visit Diagnoses Not on filedocumented in this encounter Care Teams Regional Merchandising Manager Relationship Specialty Start Date End Date Souleymane Dangelo MD PCP - General 12/27/99 11/27/[address] [place] [phone] documented as of this encounter
--- OUTSIDE RECORDS SUMMARY | 2022-05-13 16:39 | XMS_ITS | Encounter Summary ---
:1955 Author Organization [facility] Address [address] [address] Care Team Providers Name Role Phone Souleymane Dangelo MD Primary Care Provider Encounter Details Date Type Department Care Team Description 03/22/2001 Office Visit [facility] Souleymane Dangelo, GYNE COLOGIC EXAMINATION; Practice MD SCREENING MAL NEOP-CERVIX; [address] [facility] SCREENING-ENDOC/NUT/[place] [address] [address] [phone] [place], [place] [phone] (Wo rk) Social History Tobacco Use Types Packs/Day Years Used Date Smoking Tobacco: Never Assessed Sex Assigned at Date Recorded Not on file documented as of this encounter Progress Notes Souleymane Dangelo - 03/22/2001 12:00 AM CDTS: Amy is a 46 y/o. She still works at [employer]. She's and she's here for an annual check up. She has no special concerns or questions today. Simply, for routine care. Her past medical history is significant for anxiety and while she at one point in 1998 had frequent visits, and we tried several medications, she subsequently has not had much in the way of problems. In fact, she takes Xanax, perhaps a half of a pill, perhaps six times or so a year and at 0.25 mg pills. This is plenty to control her anxiety symptoms. In fact, I noticed she's not had a visit to the clinic in over a year which is a sign to me of how well her anxiety is under control. She also has a rash that has been thought to be seborrheid dermatitis and she uses occasional qmka-yvb-gfgjlos Cortisone cream on it every once in a while. The Cortisone cream is not strong enough for her. She also has noticed a lump on her low back that she wanted checked out to see what it is. Her only other concern or complaint is that her left shoulder cracks and has audible crack sometimes when she exercises, but it is in no way limited, and there is no pain associated with it. She's not sure if that needs to be evaluated. Past medical history is otherwise negative. review of systems is otherwise negative. Her family medical history is up-to-date on the flow sheet. It includes an interstitial idiopathic lung fibrosis in her father that he from. He also had heart disease. Her mom has hypothyroidism and high blood pressure. She had two grandparents with heart disease and one grandmother who had colon cancer. She thinks the grandmother had it in her 40's, but it may have been in her early 50's at the latest. In terms of health habits, Amy is a non smoker, drinks only a few drinks a week at most. No drug use. No sexual concerns. We reviewed nutrition and exercise as well. There are no safety concerns. There is no domestic violence. O: She's a 46 y/o in no acute distress. Her height is 66-3/4. Weight is 162 lbs. Pulse 72 and regular. BP: 122/80. Her TMs and canals are clear. Pupils equal, round, reactive to light and accommodation. extraocular muscles intact. Fundi are normal. Disks are sharp. Oropharynx is benign. Neck is supple without adenopathy or thyromegaly. Respirations are normal. Lungs are clear. Heart regular rate and rhythm without murmur, gallop, rub or thrill. Abdomen is benign. No hepatosplenomegaly. No mass. Extremities without clubbing, cyanosis, or edema. Skin is normal today. Breasts show perhaps a small area of fullness in the left breast at about 12:00 just above the areola. There is no firm or well defined mass there. There is no axillary adenopathy. There is no skin change or discharge. The other breast is completely normal. External genitalia are normal in appearance. Cervix is normal in appearance. Pap smear was taken. Uterus is not enlarged. No adnexal masses or tenderness. A/P: 1. Possible breast lump. We'll obtain mammogram with radiologist present for a possible ultrasound if needed. 2. Anxiety. Would continue the Xanax on a prn basis and I would be happy to refill that on prn basis as she needs it at this point. 3. Shoulder popping without disability or pain. Would not pursue any evaluation for that. 4. Seborrheic dermatitis. We'll give her some Westcort cream to use when the Cortisone doesn't control it. Also discussed the use of dandruff shampoos for that. 5. The lump on her back that is clearly a lipoma that is freely mobile and quite small. No further evaluation needed for that at this point. 6. Otherwise up-to-date on health care maintenance. IN SUMMARY: PHYSICAL EXAMINATION cc: documented in this encounter Plan of Treatment Upcoming Encounters Date Type Specialty Care Team Description 07/07/2022 Appointment Optometry Los Vences ne, OD [address] [facility] [place], [place] [address] (Wo rk) documented as of this encounter Visit Diagnoses Diagnosis Gynecological examination Screening for malignant neoplasm of the cervix Screening for other and unspecified endo crine, nutritional, metabolic and immunity disorders documented in this encounter Care Teams Diesel Locomotive Firer/Fireman Relationship Specialty Start Date End Date Souleymane Dangelo MD PCP - General 12/27/99 11/27/[address] [place] [id number] documented as of this encounter
--- OUTSIDE RECORDS SUMMARY | 2022-05-13 16:39 | XMS_ITS | Encounter Summary ---
:1955 Author Organization [facility] Address [address] [place] [address] Care Team Providers Name Role Phone Souleymane Dangelo MD Primary Care Provider Encounter Details Date Type Department Care Team Description 02/07/2003 Notes/Orders [facility] Sarah Souza, RN [address] [facility] [place] [address] Social History Tobacco Use Types Packs/Day Years Used Date Smoking Tobacco: Never Alcohol Use Standard Drinks/Week Comments Not Asked 0 (1 standard drink = 0.6 oz pure alcoho l) Sex Assigned at Date Recorded Not on file documented as of this encounter Plan of Treatment Upcoming Encounters Date Type Specialty Care Team Description 07/07/2022 Appointment Optometry [place] ne, OD [address] [facility] [place], [place] [address] (Wo rk) documented as of this encounter Visit Diagnoses Not on filedocumented in this encounter Care Teams Security Messenger Relationship Specialty Start Date End Date Souleymane Dangelo MD PCP - General 12/27/99 11/27/[address] [place] [phone] documented as of this encounter
--- OUTSIDE RECORDS SUMMARY | 2022-05-13 16:39 | XMS_ITS | Encounter Summary ---
:1955 Author Organization [facility] Address [address], [place] [address] Care Team Providers Name Role Phone Souleymane Dangelo MD Primary Care Provider Encounter Details Date Type Department Care Team Description 02/12/2002 Office Visit [facility] ury OPEN WOUND SITE NOS [address] [place] [address] Social History Tobacco Use Types Packs/Day Years Used Date Smoking Tobacco: Never Assessed Sex Assigned at Date Recorded Not on file documented as of this encounter Progress Notes Tiara Peck - 02/12/2002 12:00 AM CDTS. A [age]yunb-waz-fgww-old woman here because she caught her left thumb while cutting some cheese with a sharp cheese slicer about 15-20 minutes ago. She was holding the cheese in her left hand and using her right hand to run a sharp blade over it and got her thumb. She basically cut the lateral aspect of the distal tip of the thumb. The bleeding is currently controlled. Last tetanus was in September 1995. Past medical history is otherwise unremarkable. Medications - Ana. Allergies - None known. O. Temperature is 97.6, Pulse 84, Respiratory Rate is 20, Blood pressure 124/76. On the lateral tip of the thumb is a partial to almost entire amputation of the tip this goes into but does not cut through the nail and the pallor that I can see of the entire tip which was nearly amputated does extend under the nail bed for about 15-20% of the surface. There is a crack in the nail bed in the midportion and my suspicion is that this nail was partly bent up. This is not actively bleeding and the edges well approximated. There is a tiny cut at the base of the thumb which is quite superficial and is not actively bleeding. No other evident injury. A. Partial Amputation Lateral Tip Of Thumb. Given the pallor I think that this is not going occupational therapy survive and she will be left with an abnormal somewhat pointed appearance to the thumb and this may involve the nailbed as well. There does not appear to be a laceration of the nailbed. This is repairable, although I would rather leave the nail on to help support what is there. Under sterile conditions after the wound was soaked in Hibiclens and anesthetized with 1% Lidocaine 4 sutures were placed to replace the partially amputated tip back on the right of the thumb. There was bony injury. Patient is aware that the area may need to be further debrided and that there may be some normal growth to the nail due to the nailbed injury and that fact that part of the nailbed may not survive. Recheck with her doctor in about six days for wound check and probable suture removal if they are still there. Antibiotic wound care instructions were given. Call if any signs of infection. IN SUMMARY: THUMB INJURY cc: documented in this encounter Plan of Treatment Upcoming Encounters Date Type Specialty Care Team Description 07/07/2022 Appointment Optometry [place]ences, OD [address] [facility] [place], [place] [address] (Wo rk) documented as of this encounter Visit Diagnoses Diagnosis Open wound(s) (multiple) of unspecified site(s), without mention of complication documented in this encounter Care Teams Critical Care Transport Nurse Relationship Specialty Start Date End Date Souleymane Dangelo MD PCP - General 12/27/99 11/27/10 [address] [place] [address] documented as of this encounter
--- OUTSIDE RECORDS SUMMARY | 2022-05-13 16:39 | XMS_ITS | Encounter Summary ---
:1955 Author Organization [facility] Address [address] [address] Care Team Providers Name Role Phone Souleymane Dangelo MD Primary Care Provider Encounter Details Date Type Department Care Team Description 02/22/2003 Office Visit Lea Gerber MD [address] [place] [address] (Wo rk) Social History Tobacco Use Types Packs/Day Years Used Date Smoking Tobacco: Never Alcohol Use Standard Drinks/Week Comments Not Asked 0 (1 standard drink = 0.6 oz pure alcoho l) Sex Assigned at Date Recorded Not on file documented as of this encounter Progress Notes Souleymane Fox, PT - 02/07/2003 12:00 AM CDTDATE: 02/16/03 DX: BPPV OUTPATIENT PHYSICAL THERAPY - INITIAL NOTE SUBJECTIVE COMPLAINT: 48 y/o female presents with intermittent vertigo described as a violent spinning lasting only for seconds. Believes her problem is predominantly L sided and experiences the dizziness 2x/day. She denies ringing of her ears or nausea. HISTORY: Pt woke with dizziness on 01/03/03 in the middle of the night. Had similar episode of vertigo/dizziness 8 years ago with Rx including medication with symptoms resolving over a 1 month period of time. Pt was treated x 1 at [facility] 02/01/03 for L posterior semicircular canal problem but when she resumed L sided sleeping symptoms continued. 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 She is able to perform her job without difficulty. AGGRAVATING FACTORS: Certain positions, L side lying, and lying flat on dentist chair increased her dizziness symptoms. DIAGNOSTIC TESTS: None. GENERAL MEDICAL HX: No medication and describes health as good. PT GOALS: To fix her dizziness and be able to sleep on her L side. OBJECTIVE POSTURE/OBSERVATIONS: Pt is 5'6 tall, weighs 160 pounds, and is RHD. Is able to walk and move about Rx area without difficulty. SPECIAL TESTS: Ocular motor testing: WNL. Postural control testing: Rhomberg with eyes open/closed normal. Sharpened Rhomberg with eyes open negative and eyes closed x 25 seconds before loss of balance. Fukuda step testing: Pt with 30 degrees R handed turn. MCTSIB condition 1-4 were met and WNL. Functional reach test greater than 10 inches. Vertebral artery testing negative bilaterally. Positional testing: Hallpike-Argyle was mildly positive on the R for very mild nystagmus lasting approximately 40 seconds. Hallpike-Argyle test on L with marked nystagmus lasting 30 seconds. ROM: Cervical AROM and UE ROM WNL. STRENGTH: UE strength 5/5. NEUROLOGICAL SIGNS: Finger to nose testing WNL. RX TODAY: Pt was evaluated followed by discussion of findings and proposed Rx plan. Performed canalith repositioning technique for L sided semicircular canal problem. Education in guidelines for following 5 days including sleeping in recliner for 1st night, wearing soft cervical collar for 24 hours, and no sleep on L side for next 5 days. PT TOLERANCE: Good. 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 She did respond to today's session fairly well; however, had previously been treated at outside clinic x 1 with minimal results. REHAB POTENTIAL: Good. RX PRECAUTIONS: None indicated by MD. GOALS: (4 sessions) 1) Pt will report return of ability to lay on L side and lay flat on bed without dizziness complaints. 2) Pt will demonstrate negative Hallpike-Argyle testing indicating that her semicircular canals have been cleared. PLAN: Plan to see the pt 1x/week for up to 4 visits maximum. Rx will include canalith repositioning technique, Nolen-Daroff exercises if symptoms do not completely resolve, and ongoing assessment as appropriate. Dictated: 02/20/2003 07:04:03 Souleymane Fox PT, #[id number] Transcribed: 02/20/2003 08:12:23 Doc #: [id number] cc: Souleymane Dangelo MD This document was electronically signed by Souleymane Fox PT, #[id number] on 02/20/2003 12:56:50. Patient: AMY NICOLE Page 2 Date: OUTPATIENT PHYSICAL THERAPY CONFIDENTIAL MEDICAL RECORD [facility] Physical Therapy [phone], [facility] [address] Page 1 Patient: AMY NICOLE Location: [facility] HPN: [id number] Date of : 1955 OUTPATIENT PHYSICAL THERAPY documented in this encounter Plan of Treatment Upcoming Encounters Date Type Specialty Care Team Description 07/07/2022 Appointment Optometry Los Vences ne, OD [address] [place], [place] [address] (Wo rk) documented as of this encounter Visit Diagnoses Not on filedocumented in this encounter Care Teams China And Silverware Salesperson Relationship Specialty Start Date End Date Souleymane Dangelo MD PCP - General 12/27/99 11/27/10 [facility] [place] [address] documented as of this encounter
--- OUTSIDE RECORDS SUMMARY | 2022-05-13 16:39 | XMS_ITS | Encounter Summary ---
:1955 Author Organization [facility] Address [address] [place] [address] Care Team Providers Name Role Phone Souleymane Dangelo MD Primary Care Provider Reason for Visit Reason Comments BLOOD, SPOTS IN EYE Encounter Details Date Type Department Care Team Description 11/07/2001 Telephone Careline MICKY [place], SPOTS IN EYE [address] Ottoniel Padron RN [place], [place] [address] Social History Tobacco Use Types Packs/Day Years Used Date Smoking Tobacco: Never Assessed Sex Assigned at Date Recorded Not on file documented as of this encounter Nursing Notes 11/07/2001 11:59 PM RESOURCE RECOVERY SPECIALIST >> PHILLIP Pierre Nov 07, 2001 8:52 PM >> CALL RECEIVED. Contact: Caller states she developed a blood spot on the sclera tonight. She has had cold symptoms of coughin g and nasal congestion and has been blowing her nose hard recently. She denies any fever, eye pain o r visual changes. SHe is out to eat now and states other than the cold symptoms feels fine We discussed pressure changes and bleeding of the sclera can occur if straining, coughing or hard nose blowing. She is to monitor the symptoms and call if eye pain, if increased bleeding in th e sclera, visual changes or further questions or concerns. documented in this encounter Plan of Treatment Upcoming Encounters Date Type Specialty Care Team Description 07/07/2022 Appointment Optometry Los Vences ne, OD [address] [place], [place] [address] (Wo rk) documented as of this encounter Visit Diagnoses Not on filedocumented in this encounter Care Teams Client Server Programmer Relationship Specialty Start Date End Date Souleymane Dangelo MD PCP - General 12/27/99 11/27/10 [address] [place] [address] documented as of this encounter
--- OUTSIDE RECORDS SUMMARY | 2022-05-13 16:39 | XMS_ITS | Encounter Summary ---
:1955 Author Organization [facility] Address [address], [place] [address] Care Team Providers Name Role Phone Souleymane Dangelo MD Primary Care Provider Encounter Details Date Type Department Care Team Description 02/21/2002 Office Visit [facility] Souleymane Dangelo DRES SNG CHANGE SUTURE/STAPLE REMOVAL; Practice MD OPEN WOUND FINGER [address] [place] [address] [address] [phone] [place], [place] [phone] (Wo rk) Social History Tobacco Use Types Packs/Day Years Used Date Smoking Tobacco: Never Assessed Sex Assigned at Date Recorded Not on file documented as of this encounter Progress Notes Souleymane Dangelo - 02/21/2002 12:00 AM CDTS/O: Amy had a thumb laceration that was stitched in Urgent Care by Tiara Peck. She had actually partially amputated the tip of the thumb with a cheese slicer that she brought in to show me and repair was taken. This was approximately 9 days ago. The sutures around the flap were removed. The wound looked like it was healing well. There was no sign of infection. The flap itself was completely pink and blanchable although there was not sensation and assessment. A: Laceration, healing very well. P: Aftercare and follow up discussed. IN SUMMARY: SUTURE REMOVAL, THUMB LACERATION cc: documented in this encounter Plan of Treatment Upcoming Encounters Date Type Specialty Care Team Description 07/07/2022 Appointment Optometry Los Vences, OD [address] [place], [place] [address] (Wo rk) documented as of this encounter Visit Diagnoses Diagnosis Attention to dressings and sutures Open wound of finger(s) , without mentio n of complication documented in this encounter Care Teams Chief Underwriter Relationship Specialty Start Date End Date Souleymane Dangelo MD PCP - General 12/27/99 11/27/[address] [place] [address] documented as of this encounter
--- OUTSIDE RECORDS SUMMARY | 2022-05-13 16:39 | XMS_ITS | Encounter Summary ---
:1955 Author Organization [facility] Address [address] [place] [address] Care Team Providers Name Role Phone Sera Son MD Primary Care Provider Encounter Details Date Type Department Care Team Description 03/23/2001 Orders Only Souleymane Shipman MD [address] [place], [place] [id number] [phone] Social History Tobacco Use Types Packs/Day Years Used Date Smoking Tobacco: Never Assessed Sex Assigned at Date Recorded Not on file documented as of this encounter Plan of Treatment Upcoming Encounters Date Type Specialty Care Team Description 07/07/2022 Appointment Optometry Los Vences ne, OD [address] [place], [place] [address] (Wo rk) documented as of this encounter Procedures Procedure Name Priority Date/Time Associated Diagnosis Comme nts LIPID PANEL, FAST > Routine 03/23/2001 9:18 AM Re sults for this 12 HOUR CDT procedure are i n the results section. documented in this encounter Results (ABNORMAL) CHOLESTEROL LIPID PANEL FAST >12HR FAST (03/23/2001 9:18 AM CDT) Component Value Ref Test Analysis Performed At [facility] Range Method Time Signature Cholesterol 217 (H) <200 [facility] mg/dl Cholesterol Result should not be interpreted without [facility] the patient's history of cardiovascular risk factors. Triglyceride 155 <200 [facility] mg/dl HDL 44 >35 [facility] mg/dl LDL, Calc. 142 mg/dl [facility] Hours Fasting >12 hours [facility] Specimen Anatomical Collection Method Collection Time Receive d Time (Source) Location / / Volume Laterality 03/23/2001 9:18 AM 1 9:19 CDT AM CDT Souleymane Dangelo MD LAB_1 Performing Organization Address City/State/ZIP Code Phon e Number [facility] [phone] [facility] [address] [phone] documented in this encounter Visit Diagnoses Not on filedocumented in this encounter Care Teams Plate Corrector Relationship Specialty Start Date End Date Sera Son MD PCP - General Internal Medicine [address] [place] [address] documented as of this encounter
--- OUTSIDE RECORDS SUMMARY | 2022-05-13 16:39 | XMS_ITS | Encounter Summary ---
:1955 Author Organization [facility] Address [address] [place] [address] Care Team Providers Name Role Phone Sera Son MD Primary Care Provider Encounter Details Date Type Department Care Team Description 03/22/2001 Orders Only [facility] Souleymane Dangelo MD [address] [place], [place] [phone] [phone] Social History Tobacco Use Types Packs/Day Years Used Date Smoking Tobacco: Never Assessed Sex Assigned at Date Recorded Not on file documented as of this encounter Plan of Treatment Upcoming Encounters Date Type Specialty Care Team Description 07/07/2022 Appointment Optometry [place] Vences ne, OD [address] [place], [place] [address] (Wo rk) documented as of this encounter Procedures Procedure Name Priority Date/Time Associated Diagnosis Comme nts PAP TEST, ROUTINE Routine 03/22/2001 7:31 PM Resu lts for this CDT procedure are i n the results section. documented in this encounter Results PAP SMEAR, ROUTINE (03/22/2001 7:31 PM CDT) [facility] Method Time Signature Pap Smear, See Separate Report [facility] Routine Performed at [facility] Specimen Anatomical Collection Method Collection Time Receive d Time (Source) Location / / Volume Laterality 03/22/2001 7:31 PM 7:32 CDT PM CDT Souleymane Dangelo MD LAB_1 Performing Organization Address City/State/ZIP Code Phon e Number [facility] [phone] [facility] [address] [place] [address] documented in this encounter Visit Diagnoses Not on filedocumented in this encounter Care Teams Bank Cashier Relationship Specialty Start Date End Date Sera Son MD PCP - General Internal Medicine [address] [place] [address] documented as of this encounter
--- OUTSIDE RECORDS SUMMARY | 2022-05-13 16:39 | XMS_ITS | Encounter Summary ---
:1955 [facility] Address [address] [place] [address] Care Team Providers Name Role Phone Souleymane Dangelo MD Primary Care Provider Encounter Details Date Type Department Care Team Description 02/08/2002 Orders Only Epic, Internal P [facility] [place] [address] Social History Tobacco Use Types Packs/Day Years Used Date Smoking Tobacco: Never Assessed Sex Assigned at Date Recorded Not on file documented as of this encounter Plan of Treatment Upcoming Encounters Date Type Specialty Care Team Description 07/07/2022 Appointment Optometry [place] Vences ne, OD [address] [place], [place] [address] (Wo rk) documented as of this encounter Visit Diagnoses Not on filedocumented in this encounter Care Teams Bean Picker Machine Operator Relationship Specialty Start Date End Date Souleymane Dangelo MD PCP - General 12/27/99 11/27/[address] [place] [address] documented as of this encounter
--- OUTSIDE RECORDS SUMMARY | 2022-05-13 16:39 | XMS_ITS | Encounter Summary ---
:1955 Author Organization [facility] Address [address] [place] [address] Care Team Providers Name Role Phone Souleymane Dangelo MD Primary Care Provider Encounter Details Date Type Department Care Team Description 12/23/2002 Office Visit [facility] Unknown, Physician Physical Medicine [address] [place] [address] [phone] (Wo rk) Social History Tobacco Use Types Packs/Day Years Used Date Smoking Tobacco: Never Assessed Sex Assigned at Date Recorded Not on file documented as of this encounter Progress Notes Unknown, Physician - 12/23/2002 12:00 AM CDT documented in this encounter Plan of Treatment Upcoming Encounters Date Type Specialty Care Team Description 07/07/2022 Appointment Optometry Los Vences ne, OD [address] [place], [place] [address] (Wo rk) documented as of this encounter Visit Diagnoses Not on filedocumented in this encounter Care Teams Floor Scraper Relationship Specialty Start Date End Date Souleymane Dangelo MD PCP - General 12/27/99 11/27/[address] [place] [address] documented as of this encounter
--- OUTSIDE RECORDS SUMMARY | 2022-05-13 16:39 | XMS_ITS | Encounter Summary ---
:1955 Author [facility] Address [address] [address] Care Team Providers Name Role Phone Souleymane Dangelo MD Primary Care Provider Encounter Details Date Type Department Care Team Description 05/10/2002 Orders Only Epic, Internal P [facility] [place] [address] Social History Tobacco Use Types Packs/Day Years Used Date Smoking Tobacco: Never Assessed Sex Assigned at Date Recorded Not on file documented as of this encounter Plan of Treatment Upcoming Encounters Date Type Specialty Care Team Description 07/07/2022 Appointment Optometry Los Vences ne, OD [address] [place], [place] [address] (Wo rk) documented as of this encounter Visit Diagnoses Not on filedocumented in this encounter Care Teams Aerial Advertiser Relationship Specialty Start Date End Date Souleymane Dangelo MD PCP - General 12/27/99 11/27/[address] [place] [address] documented as of this encounter
--- OUTSIDE RECORDS SUMMARY | 2022-05-13 16:39 | XMS_ITS | Encounter Summary ---
:1955 [facility] Address [address], [place] [address] Care Team Providers Name Role Phone Souleymane Dangelo MD Primary Care Provider Encounter Details Date Type Department Care Team Description 02/12/2002 Orders Only Epic, Internal P [facility] [place] [address] Social History Tobacco Use Types Packs/Day Years Used Date Smoking Tobacco: Never Assessed Sex Assigned at Date Recorded Not on file documented as of this encounter Plan of Treatment Upcoming Encounters Date Type Specialty Care Team Description 07/07/2022 Appointment Optometry Los Vences ne, OD [address] [place], [place] [address] (Wo rk) documented as of this encounter Visit Diagnoses Not on filedocumented in this encounter Care Teams Sports Therapist Relationship Specialty Start Date End Date Souleymane Dangelo MD PCP - General 12/27/99 11/27/[address] [place] [address] documented as of this encounter
--- OUTSIDE RECORDS SUMMARY | 2022-05-13 16:39 | XMS_ITS | Encounter Summary ---
:1955 Author Organization [facility] Address [address] [place] [address] Care Team Providers Name Role Phone Souleymane Dangelo MD Primary Care Provider Encounter Details Date Type Department Care Team Description 03/31/2003 Office Visit [facility] Unknown, Physician Physical Medicine [address] [place] [address] [phone] (Wo rk) Social History Tobacco Use Types [...] Vences ne, OD [address] [place], [place] [address] (Wo rk) documented as of this encounter Visit Diagnoses Not on filedocumented in this encounter Care Teams Road Consultant Relationship Specialty Start Date End Date Souleymane Dangelo MD PCP - General 12/27/99 11/27/10 [address] [place] [address] documented as of this encounter
--- OUTSIDE RECORDS SUMMARY | 2022-05-13 16:39 | XMS_ITS | Encounter Summary ---
:1955 Author Organization [facility] Address [address] [place] [address] Care Team Providers Name Role Phone Souleymane Dangelo MD Primary Care Provider Encounter Details Date Type Department Care Team Description 10/17/2002 Notes/Orders [facility] La Brock, RN [address] [place] [address] [address] [phone] [place], [place] [address] Social History Tobacco Use Types Packs/Day Years Used Date Smoking Tobacco: Never Assessed Sex Assigned at Date Recorded Not on file documented as of this encounter Plan of Treatment Upcoming Encounters Date Type Specialty Care Team Description 07/07/2022 Appointment Optometry [place] Vences ne, OD [address] [place], [place] [address] (Wo rk) documented as of this encounter Visit Diagnoses Not on filedocumented in this encounter Care Teams Fats And Oils Loader Relationship Specialty Start Date End Date Souleymane Dangelo MD PCP - General 12/27/99 11/27/[address] [place] [address] documented as of this encounter
--- OUTSIDE RECORDS SUMMARY | 2022-05-13 16:39 | XMS_ITS | Encounter Summary ---
:1955 Author Organization [facility] Address [address], [place] [address] Care Team Providers Name Role Phone Souleymane Dangelo MD Primary Care Provider Encounter Details Date Type Department Care Team Description 04/16/2001 Orders Only Epic, Internal P [facility] [place] [address] Social History Tobacco Use Types Packs/Day Years Used Date Smoking Tobacco: Never Assessed Sex Assigned at Date Recorded Not on file documented as of this encounter Plan of Treatment Upcoming Encounters Date Type Specialty Care Team Description 07/07/2022 Appointment Optometry [place] Vences ne, OD [address] [place], [place] [address] (Wo rk) documented as of this encounter Visit Diagnoses Not on filedocumented in this encounter Care Teams Territory Sales Representative Relationship Specialty Start Date End Date Souleymane Dangelo MD PCP - General 12/27/99 11/27/[address] [place] [address] documented as of this encounter
--- OUTSIDE RECORDS SUMMARY | 2022-05-13 16:39 | XMS_ITS | Encounter Summary ---
:1955 Author Organization [facility] Address [address] [address] Care Team Providers Name Role Phone Souleymane Dangelo MD Primary Care Provider Encounter Details Date Type Department Care Team Description 01/30/2003 Office Visit [facility] Souleymane Dangelo, PREV ENTIVE CARE EXAM; Practice MD SCREENING MAL NEOP-CERVIX; [address]; [place] [address] [address] [facility] GIDD[facility] [phone] [place], [place] [phone] (Wo rk) Social History Tobacco Use Types Packs/Day Years Used Date Smoking Tobacco: Never Alcohol Use Standard Drinks/Week Comments Not Asked 0 (1 standard drink = 0.6 oz pure alcoho l) Sex Assigned at Date Recorded Not on file documented as of this encounter Last Filed Vital Signs Vital Sign Reading Time Taken Comments Blood Pressure 118/78 01/30/2003 8:00 AM CDT Pulse 72 01/30/2003 8:00 AM CDT Temperature - - Respiratory Rate - - Oxygen Saturation - - Inhaled Oxygen Concentration - - Weight 73 kg (161 lb) 01/30/2003 8:00 AM CDT Height 169.5 cm (5' 6.75) 01/30/2003 8:00 AM CDT Body Mass Index 25.41 01/30/2003 8:00 AM CDT documented in this encounter Progress Notes 01/30/2003 8:00 AM CDT Addended by: KEYSHA MARTIN on: 02/08/2003, 3:48:30 PM (via Web). Comment: negative pap letter sent to pt Amy Nicole is here today for pe and pap, also notes some dizziness on-off x 3 wks. Are you having pain today, that you want to discuss with the provider? -no BP was taken on the RIGHT arm. Large cuff used- YES Method of control? -vasectomy PARA 5005 Patient does Self Breast exams? -SOMETIMES. Mammogram done? -Yes, date 01/14 Where [facility]. PAP done? -Yes, date 03/14 Where here Bone Density study done? -No testing done. CHOLESTEROL (mg/dl) Date Value 03/23/2001 217 * HDL CHOLESTEROL (mg/dl) Date Value 03/23/2001 44 LDL, CALC. (mg/dl) Date Value 03/23/2001 142 TRIGLYCERIDE (mg/dl) Date Value 03/23/2001 155 Immunizations reviewed? -YES Do you ever feel physically threatened or emotionally afraid? -NO. Tobacco Status reviewed? (see History: Social-Substance) -YES sandwich counter attendant offered? -ACCEPTED. Aspirin taken daily? - NO Health Education given? -NO. patient's phone number [phone] (home) [phone] (work) Keysha Martin LPN 01/30/2003 8:08 AM Souleymane Dangelo - 01/30/2003 12:00 AM CDTPROBLEM: Pap and physical. SUBJECTIVE: Please reference my physical exam note from March 22, 2001 for details of past medical history, social history, family history, and health related habits. There is no change in any of those since that visit with the exception of perhaps eating more in the way of fruits and vegetables that she did before, trying to walk to work several times a week and trying to get a little bit more physical activity. The only other major life change is that she works for [employer], was announced that within the next couple of years they will be closing down the [place] offices, so she is facing some uncertainty about that, although she is planning on sticking it out in the job as long the job is here for her. Her daughter Mili is also going to be senior this year and will be getting ready to go to college in about a year and a few months, and so she is mentally preparing for that. Several concerns today: 1) She's had some recent dizziness. This has been going on for about three weeks. It is a sense of spinning and it occurs when she turns her head to the left, when she sort of lays down on the left ear, or if she tilts her head back. Nothing else seems to provoke it. Nothing else makes it better. It goes away on its own. She tried some ogck-yhh-upwfszz meclizine, but that did not help. She does not have any other HEENT or neurologic or systemic symptoms. Had a prior history of this once several years ago. It is actually better now than it was in the beginning of the time, although she did have a recurrence of it when she laid back for the Pap smear. 2) Has some GERD symptoms. She gets heartburn, particularly when she lies down at night. Tums don't particularly seem to help. She has not tried anything else for it. She'll occasionally get a taste in the back of her mouth that feels as if it were vomit coming up. No other GI symptoms. 3) She has some right anterior knee pain occasionally with going up stairs. It is only rare and intermittent. It is not usually present. There has been no injury. Her doesn't give way or lock up on her. Otherwise complete review of systems is negative. 4) Follow up for chronic anxiety. She notes that she has not taken any Xanax for well over two years now, but she still feels like having a small supply of bottles on the pill shelf. It helps her to feel more comfortable in having some safety in case she does have a panic or an anxiety spell. Pharmacy told her that the pills were only good for a year and so she would like a renewal on that. OBJECTIVE: On exam, she is a 48-year-old in no distress. Her vitals are normal and are on the nursing note. TMs and canals are clear. BELKIS, EOMI, fundi are normal, disks are sharp. Oropharynx is benign. Neck supple without adenopathy or thyromegaly. Respirations are normal. Lungs are clear. Heart - regular rate and rhythm without murmur, gallop, rub, or thrill. Abdomen is benign, no hepatosplenomegaly, no mass. Extremities without clubbing, cyanosis, or edema. Her knee has no crepitance and is otherwise normal. Breasts are normal and there is no lump, no discharge, no axillary adenopathy. External genitalia normal in appearance. Pap smear taken. Uterus not enlarged. No adnexal masses or tenderness. ASSESSMENT/PLAN: 1) Normal screening PE. 2) Colonoscopy for screening given family history of colon cancer. 3) For the GERD, I recommended trying bpjp-gjj-zfswjfe Zantac and then doubling that to the prescription dose if in and of itself that does take care of it. If that is not sufficient she is to call me and I will call in a proton pump inhibitor. 4) Anterior knee pain, mild. I gave her a handout with some exercises and if it gets worse rather than better, also under physical therapy. 5) Benign positional vertigo. We will send to Physical Therapy for desensitization maneuvers. 6) She is otherwise up-to-date on health maintenance. A cc: documented in this encounter Plan of Treatment Upcoming Encounters Date Type Specialty Care Team Description 07/07/2022 Appointment Optometry [place], OD [address] [place], [place] [address] (Wo rk) documented as of this encounter Visit Diagnoses Diagnosis Routine general medical examination at [facility] Routine general medical examination at [facility] facility Screening for malignant neoplasm of the cervix Pain in limb Dizziness and giddiness documented in this encounter Care Teams Production Planning Supervisor Relationship Specialty Start Date End Date Souleymane Dangelo MD PCP - General 12/27/99 11/27/[address] [place] [address] [phone] documented as of this encounter
--- OUTSIDE RECORDS SUMMARY | 2022-05-13 16:39 | XMS_ITS | Encounter Summary ---
:1955 Author [facility] Address [address] [place] [address] Care Team Providers Name Role Phone Souleymane Dangelo MD Primary Care Provider Encounter Details Date Type Department Care Team Description 03/07/2002 Office Visit [facility] Jordan Dial, OD EYE & VISION EXAMINATION; [address] [place] [place] [address] [place], [place] [phone] Social History Tobacco Use Types Packs/Day Years Used Date Smoking Tobacco: Never Assessed Sex Assigned at Date Recorded Not on file documented as of this encounter Plan of Treatment Upcoming Encounters Date Type Specialty Care Team Description 07/07/2022 Appointment Optometry [place] ne, OD [address] [place], [place] [address] (Wo rk) documented as of this encounter Visit Diagnoses Diagnosis Examination of eyes and vision Presbyopia documented in this encounter Care Teams Research Dairy Farm Supervisor Relationship Specialty Start Date End Date Souleymane Dangelo MD PCP - General 12/27/99 11/27/[address] [place] [address] documented as of this encounter
--- OUTSIDE RECORDS SUMMARY | 2022-05-13 16:39 | XMS_ITS | Encounter Summary ---
:1955 Author Organization [facility] Address [address], [place] [address] Care Team Providers Name Role Phone Souleymane Dangelo MD Primary Care Provider Encounter Details Date Type Department Care Team Description 03/22/2001 Orders Only Babita Dangelo MD [address] [place], [place] [phone] (Wo rk) Social History Tobacco Use Types Packs/Day Years Used Date Smoking Tobacco: Never Assessed Sex Assigned at Date Recorded Not on file documented as of this encounter Plan of Treatment Upcoming Encounters Date Type Specialty Care Team Description 07/07/2022 Appointment Optometry [place], OD [address] [facility] [place], [place] [address] (Wo rk) documented as of this encounter Procedures Procedure Name Priority Date/Time Associated Diagnosis Comme nts DESIZING MACHINE OPERATOR HEAD END CYTOLOGY Routine 03/22/2001 12:00 AM Results for this CDT procedure are i n the results section . documented in this encounter Results DESIZING MACHINE OPERATOR HEAD END CYTOLOGY (03/22/2001 12:00 AM CDT) [facility] Method Time Signature Gamer Cytology Gamer Cytology Report [facility] Patient Name: AMY NICOLE Taken: 03/22/01 Received: 03/24/01 Reported: 04/02/01 Physician(s): SOULEYMANE DANGELO ([id number]) ? [id number] Final Cytologic Diagnosis Cervical Endocervical,routine: ? Satisfactory for evaluation. ??Endocervical cells and/or squamous metaplastic cells ??present. ? WITHIN NORMAL LIMITS (WNL) ? Comment kp/04/02/01 Electronically Signed Out By ARANZA GRIFFITHS ?? CT(ASCP)ARANZA GRIFFITHS ??CT(ASCP) ? Source of Specimen(s) Cervical Endocervical,routine Clinical History Date of Last Menstrual Period: ? 03/06/01 Menstrual History: Contraceptive History: Cancer History: Infection History: Treatment History: Other Clinical Conditions: LAST PAP: Other Related Clinical Data Specimen (Source) Anatomical Collection Method Collection Time Re ceived Time Location / / Volume Laterality 03/22/2001 03/24/2001 1:36 PM CDT Souleymane Dangelo MD UNLISTED CODE Performing Organization Address City/State/ZIP Code Phon e Number [address] [address] [place], [place] [phone] documented in this encounter Visit Diagnoses Not on filedocumented in this encounter Care Teams Home Theater Experience Expert Relationship Specialty Start Date End Date Souleymane Dangelo MD PCP - General 12/27/99 11/27/[address] [place] [address] documented as of this encounter
--- OUTSIDE RECORDS SUMMARY | 2022-05-13 16:39 | XMS_ITS | Encounter Summary ---
:1955 Author Organization [facility] Address [address] [address] Care Team Providers Name Role Phone Souleymane Dangelo MD Primary Care Provider Encounter Details Date Type Department Care Team Description 01/30/2003 Orders Only [facility] Souleymane Dangelo MD [address] [place] [address] [place] [address] [phone] (Wo rk) Social History Tobacco Use Types [...] [place], OD [address] [place], [place] [address] (Wo rk) documented as of this encounter Procedures Procedure Name Priority Date/Time Associated Diagnosis Comme nts PAP TEST, ROUTINE Routine 01/30/2003 12:00 AM Res ults for this CDT procedure are i n the results section. documented in this encounter Results PAP TEST, ROUTINE (01/30/2003 12:00 AM CDT) Component Value Ref Test Analysis Performed At [facility] Range Method Time Signature Cytology, Pap (NOTE) [facility] Weight Reducing Technician Cytology Report Patient Name: AMY NICOLE Taken: 01/30/03 Received: 01/31/03 Reported: 02/02/03 Physician(s): SOULEYMANE DANGELO ([id number]) ? [id number] ? Source of Specimen Liquid routine Pap, cervical/endocervical: ? Specimen Adequacy ? Satisfactory for evaluation. ??Endocervical component present. Final Cytologic Interpretation/Result NEGATIVE FOR INTRAEPITHELIAL LESION OR MALIGNANCY (NILM) sv1/02/02/03 Electronically Signed Out By KAYODE Richards (ASCP) KAYODE Richards (ASCP) ? Pap Smear History ? Date of Last Menstrual Period: ? 01/10/03 ? Other Clinical Conditions: ? HPV reflex testing requested with interpretation of ASCUS Specimen (Source) Anatomical Collection Method Collection Time Re ceived Time Location / / Volume Laterality 01/30/2003 01/31/2003 7:24 PM CDT Souleymane Dangelo MD LAB_1 Performing Organization Address City/State/ZIP Code Phon e Number [address] [address] [place], [place] [phone] documented in this encounter Visit Diagnoses Not on filedocumented in this encounter Care Teams Security Agent Relationship Specialty Start Date End Date Souleymane Dangelo MD PCP - General 12/27/99 11/27/10 [address] [place] [address] documented as of this encounter
--- OUTSIDE RECORDS SUMMARY | 2022-05-13 16:40 | XMS_ITS | Encounter Summary ---
:1955 Author Organization [facility] Address [address] [address] Care Team Providers Name Role Phone Sera Son MD Primary Care Provider Encounter Details Date Type Department Care Team Description 12/27/1999 Orders Only Babita Dangelo MD [address] [place] [address] (Wo rk) Social History Tobacco Use Types Packs/Day Years Used Date Smoking Tobacco: Never Assessed Sex Assigned at Date Recorded Not on file documented as of this encounter Plan of Treatment Upcoming Encounters Date Type Specialty Care Team Description 07/07/2022 Appointment Optometry [place], OD [address] [place], [place] [address] (Wo rk) documented as of this encounter Visit Diagnoses Not on filedocumented in this encounter Care Teams Wired Sweatband Cutter Relationship Specialty Start Date End Date Sera Son MD PCP - General Internal Medicine 11/[address] [place] [address] documented as of this encounter
--- OUTSIDE RECORDS SUMMARY | 2022-05-13 16:40 | XMS_ITS | Encounter Summary ---
:1955 Author Organization [facility] Address [address] [place] [address] Care Team Providers Name Role Phone Souleymane Dangelo MD Primary Care Provider Reason for Visit Reason Comments CONTACTS,NO PROBLEMS RECHECK VIA INTERFACE Encounter Details Date Type Department Care Team Description 04/27/2000 Office Visit [facility] Jordan Dial, [facility] [address] [place] [address] [place], [place] [phone] (Wo rk) Social History Tobacco Use Types Packs/Day Years Used Date Smoking Tobacco: Never Assessed Sex Assigned at Date Recorded Not on file documented as of this encounter Plan of Treatment Upcoming Encounters Date Type Specialty Care Team Description 07/07/2022 Appointment Optometry [place], OD [address] [facility] [place], [place] [address] (Wo rk) documented as of this encounter Visit Diagnoses Diagnosis Astigmatism, unspecified documented in this encounter Care Teams Cutting Supervisor Relationship Specialty Start Date End Date Souleymane Dangelo MD PCP - General 12/27/99 11/27/[address] [place] [address] documented as of this encounter
--- OUTSIDE RECORDS SUMMARY | 2022-05-13 16:40 | XMS_ITS | Encounter Summary ---
:1955 Author Organization [facility] Address [address] [place] [address] Care Team Providers Name Role Phone Kacey Hyatt MD Primary Care Provider Unavailable Encounter Details Date Type Department Care Team Description 10/30/1998 Orders Only Kendall Whitten MD [address] [place], [place] [address] (Wo rk) Social History Tobacco Use Types Packs/Day Years Used Date Smoking Tobacco: Never Assessed Sex Assigned at Date Recorded Not on file documented as of this encounter Plan of Treatment Upcoming Encounters Date Type Specialty Care Team Description 07/07/2022 Appointment Optometry [place], OD [address] [place], [place] [address] (Wo rk) documented as of this encounter Procedures Procedure Name Priority Date/Time Associated Comments Diagnosis RHEUMATOID FACTOR, Routine 10/30/1998 10:38 AM Re sults for this QUANT SHEET CUTTER procedure are i n the results section. BRANDON SCREEN Routine 10/30/1998 10:38 AM Results for this SHEET CUTTER procedure are i n the results section. ESR Routine 10/30/1998 10:38 AM Results for this SHEET CUTTER procedure are i n the results section. documented in this encounter Results RHEUMATOID FACTOR, QUANT (10/30/1998 10:38 AM SHEET CUTTER) P athologist Signature Quant. Rheum. <20 <20 IU/ml [facility] Factor Specimen Anatomical Collection Method Collection Time Receive d Time (Source) Location / / Volume Laterality 10/30/1998 10:38 10/30/1998 AM SHEET CUTTER 10:39 AM SHEET CUTTER Kendall Whitten MD LAB_1 Performing Organization Address [facility]/ZIP Code Phon e Number [facility] [phone] [facility] [address] [phone] BRANDON SCREEN (10/30/1998 10:38 AM SHEET CUTTER) Patholo gist Method Time Signature BRANDON Screen Negative NEG [facility] [Negative is <1:40] Specimen Anatomical Collection Method Collection Time Receive d Time (Source) Location / / Volume Laterality 10/30/1998 10:38 10/30/1998 AM SHEET CUTTER 10:39 AM SHEET CUTTER Kendall Whitten MD LAB_1 Performing Organization Address [facility] Phon e Number [facility] [phone] [facility] [address] [place] [phone] (ABNORMAL) ESR (10/30/1998 10:38 AM SHEET CUTTER) P athologist Signature ESR 35 (H) 0 - 20 [facility] mm/hr Specimen Anatomical Collection Method Collection Time Receive d Time (Source) Location / / Volume Laterality 10/30/1998 10:38 10/30/1998 AM SHEET CUTTER 10:39 AM SHEET CUTTER Kendall Whitten MD LAB_1 Performing Organization Address [facility] Phon e Number [facility] [phone] [facility] [address] [place] [phone] documented in this encounter Visit Diagnoses Not on filedocumented in this encounter Care Teams Software Test Automation Engineer Relationship Specialty Start Date End Date Kacey Hyatt MD PCP - General 11/17/1997 12/26/99 documented as of this encounter
--- OUTSIDE RECORDS SUMMARY | 2022-05-13 16:40 | XMS_ITS | Encounter Summary ---
:1955 Author Organization [facility] Address [address] [place] [address] Care Team Providers Name Role Phone Unavailable Primary Care Provider Unavailable Reason for Visit Reason Comments Med Refill Encounter Details Date Type Department Care Team Description 04/09/2022 Refill Division of Nephrology and [place], Farhan Ojeda Jr., Med Refill Hypertension in [facility] [address] [facility] [address] [place] [address] [place] [address] [phone] Social History Tobacco Use Types Packs/Day Years Used Date Smoking Tobacco: Never Assessed Sex Assigned at Date Recorded Not on file documented as of this encounter Plan of Treatment Not on filedocumented as of this encounter Visit Diagnoses Diagnosis Hyperlipidemia documented in this encounter
--- OUTSIDE RECORDS SUMMARY | 2022-05-13 16:40 | XMS_ITS | Encounter Summary ---
:1955 Author Organization [facility] Address [address], [place] [address] Care Team Providers Name Role Phone Souleymane Dangelo MD Primary Care Provider Encounter Details Date Type Department Care Team Description 01/23/1999 Orders Only Babita Dangelo MD [address] [place], [place] [phone] (Wo rk) Social History Tobacco Use Types Packs/Day Years Used Date Smoking Tobacco: Never Assessed Sex Assigned at Date Recorded Not on file documented as of this encounter Plan of Treatment Upcoming Encounters Date Type Specialty Care Team Description 07/07/2022 Appointment Optometry [place], OD [address] [facility] [place], [place] [address] (Wo rk) documented as of this encounter Procedures Procedure Name Priority Date/Time Associated Diagnosis Comme [facility] ABLE SEAMAN CYTOLOGY Routine 01/23/1999 8:30 AM Results f or this CDT procedure are i n the results section . documented in this encounter Results ABLE SEAMAN CYTOLOGY (01/23/1999 8:30 AM CDT) [facility] Method Time Signature Network Operations Specialist Cytology Network Operations Specialist Cytology Report [facility] Patient Name: AMY NICOLE Taken: 01/23/99 Received: 01/24/99 Reported: 01/29/99 Physician(s): SOULEYMANE DANGELO ([id number]) ? Final Cytologic Diagnosis Cervical/Endocervical,routine: ? Satisfactory for evaluation. ??Endocervical cells and/or squamous metaplastic cells ??present. ? WITHIN NORMAL LIMITS ? Comment dt09/18/17 Electronically Signed Out By KAYODE Millan (ASCP)KAYODE Millan (ASCP) ? Source of Specimen(s) Cervical/Endocervical,routine Clinical History Date of Last Menstrual Period: ? 01/07/99 Menstrual History: Contraceptive History: Cancer History: Infection History: Treatment History: Other Clinical Conditions: Other Related Clinical Data Specimen Anatomical Collection Method Collection Time Receive d Time (Source) Location / / Volume Laterality 01/23/1999 8:30 AM 9 CDT 10:00 AM CDT Souleymane Dangelo MD UNLISTED CODE Performing Organization Address City/State/ZIP Code Phon e Number [address] [address] [place], [place] [phone] documented in this encounter Visit Diagnoses Not on filedocumented in this encounter Care Teams Disaster Or Damage Control Specialist Relationship Specialty Start Date End Date Souleymane Dangelo MD PCP - General 12/27/99 11/27/[address] [place] [address] documented as of this encounter
--- OUTSIDE RECORDS SUMMARY | 2022-05-13 16:40 | XMS_ITS | Encounter Summary ---
:1955 Author Organization [facility] Address [address], [place] [address] Care Team Providers Name Role Phone Souleymane Dangelo MD Primary Care Provider Reason for Visit Reason Comments Allergies VIA INTERFACE Encounter Details Date Type Department Care Team Description 01/08/2000 Office Visit [facility] Souleymane Dangelo, MURIEL RGIC RHINITIS [facility]OS Practice [address] [place] [address] [address] [phone] [place], [place] [phone] (Wo rk) Social History Tobacco Use Types Packs/Day Years Used Date Smoking Tobacco: Never Assessed Sex Assigned at Date Recorded Not on file documented as of this encounter Progress Notes Souleymane Dangelo - 01/08/2000 12:00 AM CDTS: Has sort of chronic post nasal discharge, nasal congestion, cough, sneezing, watery eyes that are occasional itchy. This has been fairly intermittent correction problem. She's had it most recently for at least the last several weeks. Finds that Sudafed helps a little bit, but it makes her a little bit drowsy. She's not sick in any other way. Believes that they are probably allergies. Review of systems otherwise negative. O: She's in no acute distress. Her TMs are clear. Nasal mucosa perhaps a little boggy. Conjunctiva normal. Oropharynx benign. Neck is supple without adenopathy. A: Allergic rhinitis. P: Ana 60 mg bid. Refills given. Follow-up prn. cc: documented in this encounter Plan of Treatment Upcoming Encounters Date Type Specialty Care Team Description 07/07/2022 Appointment Optometry [place], OD [address] [place], [place] [address] (Wo rk) documented as of this encounter Visit Diagnoses Diagnosis Allergic rhinitis, cause unspecified documented in this encounter Care Teams Park Activities Coordinator Relationship Specialty Start Date End Date Souleymane Dangelo MD PCP - General 12/27/99 11/27/[address] [place] [address] documented as of this encounter
--- OUTSIDE RECORDS SUMMARY | 2022-05-13 16:40 | XMS_ITS | Encounter Summary ---
:1955 Author Organization [facility] Address [address], [place] [address] Care Team Providers Name Role Phone Kacey Hyatt MD Primary Care Provider Unavailable Encounter Details Date Type Department Care Team Description 04/04/1999 Office Visit [facility] Souleymane JOSEPH Frost NFLAM DIS CERVIX NEC; Practice MD ANXIETY DISORDER NOS [address] [place] [address] [address] [phone] [place], [place] [phone] (Wo rk) Social History Tobacco Use Types Packs/Day Years Used Date Smoking Tobacco: Never Assessed Sex Assigned at Date Recorded Not on file documented as of this encounter Progress Notes Souleymane Dangelo Margot - 04/04/1999 12:00 AM CDTS: Noted that when I did her Pap smear in January. At 3 o'clock, she had an area of faint redness and I believed that it was because I bumped with cervix with the speculum when opening it, comes in for a follow-up visual examination. O/A/P: Today the visual examination is completely normal of the cervix. She does not have any symptoms. No worries on the Pap smear, it had come back normal. Also briefly discussed the anxiety. She is doing quite well with it. Is now down on 10 mg a day of the Paxil and is interested in tapering off. I think that she will continue with 10 mg for a month and then perhaps 10 mg every other day for a month and then stop it and she will let me know how she does. No further follow-up needed for either of these problems. cc: documented in this encounter Plan of Treatment Upcoming Encounters Date Type Specialty Care Team Description 07/07/2022 Appointment Optometry Los Vec[place] ne, OD [address] [place], [place] [address] (Wo rk) documented as of this encounter Visit Diagnoses Diagnosis Other specified noninflammatory disorder of cervix Anxiety state, unspecified (HRC) Anxiety state, unspecified documented in this encounter Care Teams Jail Guard Relationship Specialty Start Date End Date Kacey Hyatt MD PCP - General 11/17/1997 12/26/99 documented as of this encounter
--- OUTSIDE RECORDS SUMMARY | 2022-05-13 16:40 | XMS_ITS | Encounter Summary ---
:1955 Author Organization [facility] Address [address] [place] [address] Care Team Providers Name Role Phone Unavailable Primary Care Provider Unavailable Reason for Visit Reason Comments Med Refill Encounter Details Date Type Department Care Team Description 08/10/2021 Refill Division of Nephrology and Chalino, Farhan Ojeda Jr., Med Refill Hypertension in [facility] 200 [facility] [address] [place] [address] [place] [address] [phone] Social History Tobacco Use Types Packs/Day Years Used Date Smoking Tobacco: Never Assessed Sex Assigned at Date Recorded Not on file documented as of this encounter Plan of Treatment Not on filedocumented as of this encounter Visit Diagnoses Not on filedocumented in this encounter
--- OUTSIDE RECORDS SUMMARY | 2022-05-13 16:40 | XMS_ITS | Encounter Summary ---
:1955 Author Organization [facility] Address [address] [place] [address] Care Team Providers Name Role Phone Kacey Hyatt MD Primary Care Provider Unavailable Encounter Details Date Type Department Care Team Description 10/28/1998 Orders Only Social History Tobacco Use Types Packs/Day Years Used Date Smoking Tobacco: Never Assessed Sex Assigned at Date Recorded Not on file documented as of this encounter Plan of Treatment Upcoming Encounters Date Type Specialty Care Team Description 07/07/2022 Appointment Optometry Los Vences ne, OD [address] [place], [place] [address] (Wo rk) documented as of this encounter Procedures Procedure Name Priority Date/Time Associated Diagnosis Comme nts HEMOGRAM Waiting 10/28/1998 1:02 PM Results f or this CALL OR CONTACT CENTRE TEAM LEADER procedure are i n the results section. ACCUCHECK GLU Routine 10/28/1998 1:02 PM Results for this RANDOM <8HR FAST CALL OR CONTACT CENTRE TEAM LEADER procedure a re in (WAITING) the results section. TSH, SENSITIVE Routine 10/28/1998 1:02 PM Results for this (WITH REFLEX) CALL OR CONTACT CENTRE TEAM LEADER procedure are in the results section. UA MICRO Routine 10/28/1998 1:02 PM Results f or this CALL OR CONTACT CENTRE TEAM LEADER procedure are i n the results section. UA MICRO IF Routine 10/28/1998 1:02 PM Results f or this CALL OR CONTACT CENTRE TEAM LEADER procedure are i n the results section. ESR Waiting 10/28/1998 1:02 PM Results f or this CALL OR CONTACT CENTRE TEAM LEADER procedure are i n the results section. documented in this encounter Results TSH, SENSITIVE (10/28/1998 1:02 PM CALL OR CONTACT CENTRE TEAM LEADER) athologist Signature TSH 1.42 0.30 - 5.00 [facility] uIU/ml Thyroid Meds No [facility] Specimen Anatomical Collection Method Collection Time Receive d Time (Source) Location / / Volume Laterality 10/28/1998 1:02 PM 9 1:03 CALL OR CONTACT CENTRE TEAM LEADER PM CALL OR CONTACT CENTRE TEAM LEADER Im Trauma Wyuc LAB_1 Performing Organization Address City/[facility]/ZIP [facility] Phon e Number [facility] [phone] [address] UA MICRO (10/28/1998 1:02 PM CALL OR CONTACT CENTRE TEAM LEADER) athologist Signature RBC'S 0-3 0 - 3 /hpf [facility] WBC'S 0 0 - 5 /hpf [facility] Epith, Occ [facility] Squamous Bact Occ [facility] Casts 0 /lpf [facility] Specimen Anatomical Collection Method Collection Time Receive d Time (Source) Location / / Volume Laterality 10/28/1998 1:02 PM 9 1:03 CALL OR CONTACT CENTRE TEAM LEADER PM CALL OR CONTACT CENTRE TEAM LEADER Im Trauma Wyuc LAB_1 Performing Organization Address City/[facility] Phon e Number [employer] [phone] [address] UA MICRO IF (10/28/1998 1:02 PM CALL OR CONTACT CENTRE TEAM LEADER) athologist Signature Appr Yellow [facility] Appr Clear [facility] Sp Gr 1.016 1.005 - [facility] 1.030 Leuk 0 0 [facility] Nitr 0 0 [facility] pH 5.0 4.5 - 8.0 [facility] Prot 0 0 mg/dl [facility] Gluc 0 0 g/dl [facility] Ket 0 0 [facility] Urob 0.1-1 0.1 - 1 [facility] mg/dl Bili 0 0 [facility] Blood Mod 0 [facility] Specimen Anatomical Collection Method Collection Time Receive d Time (Source) Location / / Volume Laterality 10/28/1998 1:02 PM 9 1:03 CALL OR CONTACT CENTRE TEAM LEADER PM CALL OR CONTACT CENTRE TEAM LEADER Im Trauma Wyucc LAB_1 Performing Organization Address [facility]/ZIP [facility] Phon e Number [facility] [phone] [facility] [address] [place] [phone] (ABNORMAL) ESR (10/28/1998 1:02 PM CALL OR CONTACT CENTRE TEAM LEADER) athologist Signature ESR 46 (H) 0 - 20 [facility] mm/hr Specimen Anatomical Collection Method Collection Time Receive d Time (Source) Location / / Volume Laterality 10/28/1998 1:02 PM 9 1:03 CALL OR CONTACT CENTRE TEAM LEADER PM CALL OR CONTACT CENTRE TEAM LEADER Im Trauma [facility] LAB_1 Performing Organization Address [facility] Phon e Number [facility] [phone] [phone] (ABNORMAL) HEMOGRAM (10/28/1998 1:02 PM CALL OR CONTACT CENTRE TEAM LEADER) athologist Signature WBC 8.2 3.6 - 11.0 [facility] k/ul RBC 4.14 4.0 - 5.2 [facility] M/ul Hemoglobin 12.0 12.0 - [facility] 16.0 g/dl HCT 35.3 (L) 36.0 - [facility] 46.0 % MCV 85.3 80 - 100 [facility] fl MCH 29.0 26 - 34 pg [facility] MCHC 34.0 32 - 36 % [facility] Specimen Anatomical Collection Method Collection Time Receive d Time (Source) Location / / Volume Laterality 10/28/1998 1:02 PM 9 1:03 CALL OR CONTACT CENTRE TEAM LEADER PM CALL OR CONTACT CENTRE TEAM LEADER Im Trauma [facility] LAB_1 Performing Organization Address [facility] Phon e Number [facility] [phone] [phone] ACCUCHECK GLU RANDOM <8HR FAST WAITING (10/28/1998 1:02 PM CALL OR CONTACT CENTRE TEAM LEADER) Component Value Ref Test [facility] Range Method Time Signature Glucose, bG 108 65 - 115 [facility] Strip mg/dl Glucose, bG Semi-quantitative result (bG) may be [facility] Strip 5-10% lower than quantitative result. Hours Fasting 4.5 hours [facility] Specimen Anatomical Collection Method Collection Time Receive d Time (Source) Location / / Volume Laterality 10/28/1998 1:02 PM 9 1:03 CALL OR CONTACT CENTRE TEAM LEADER PM CALL OR CONTACT CENTRE TEAM LEADER Im Trauma [facility] LAB_1 Performing Organization Address City/State/ZIP Code Phon e Number [facility] [phone] [facility] [address] [address] documented in this encounter Visit Diagnoses Not on filedocumented in this encounter Care Teams Thread Inspector Relationship Specialty Start Date End Date Kacey Hyatt MD PCP - General 11/17/1997 12/26/99 documented as of this encounter
--- OUTSIDE RECORDS SUMMARY | 2022-05-13 16:40 | XMS_ITS | Encounter Summary ---
:1955 Author Organization [facility] Address [address] [place] [address] Care Team Providers Name Role Phone Unavailable Primary Care Provider Unavailable Encounter Details Date Type Department Care Team Description 01/15/2022 Orders Only Division of Nephrology Edward Allred ypertension And and Hypertension in Rusty Pate D.O. Chronic Kidney Disease [place], [place] [address] [facility] Stage 1 To 4 [address] [place] [address] [phone] Social History Tobacco Use Types Packs/Day Years Used Date Smoking Tobacco: Never Assessed Sex Assigned at Date Recorded Not on file documented as of this encounter Plan of Treatment Not on filedocumented as of this encounter Visit Diagnoses Diagnosis Hypertension And Chronic Kidney Disease Stage 1 To 4 documented in this encounter
--- OUTSIDE RECORDS SUMMARY | 2022-05-13 16:40 | XMS_ITS | Encounter Summary ---
:1955 [facility] Address [address] [place] [address] Care Team Providers Name Role Phone Souleymane Dangelo MD Primary Care Provider Encounter Details Date Type Department Care Team Description 02/10/2001 Orders Only Epic, Internal P [facility] [place] [address] Social History Tobacco Use Types Packs/Day Years Used Date Smoking Tobacco: Never Assessed Sex Assigned at Date Recorded Not on file documented as of this encounter Plan of Treatment Upcoming Encounters Date Type Specialty Care Team Description 07/07/2022 Appointment Optometry [place] ne, OD [address] [place], [place] [address] (Wo rk) documented as of this encounter Visit Diagnoses Not on filedocumented in this encounter Care Teams Jigger Machine Operator Relationship Specialty Start Date End Date Souleymane Dangelo MD PCP - General 12/27/99 11/27/[address] [place] [id number] documented as of this encounter
--- OUTSIDE RECORDS SUMMARY | 2022-05-13 16:40 | XMS_ITS | Encounter Summary ---
:1955 Author Organization [facility] Address [address] [place] [address] Care Team Providers Name Role Phone Kacey Hyatt MD Primary Care Provider Unavailable Encounter Details Date Type Department Care Team Description 11/07/1998 Office Visit Babita Dangelo MD [address] [place] [address] (Wo rk) Social History Tobacco Use Types Packs/Day Years Used Date Smoking Tobacco: Never Assessed Sex Assigned at Date Recorded Not on file documented as of this encounter Progress Notes Souleymane Dangelo - 11/07/1998 12:00 AM CSTDICTATED BY: Dr. Souleymane Dangelo PROBLEM: Anxiety. S: Spent 30 minutes face to face in counseling with the patient. Note that she saw Dr. Whitten recently for the problem. She has had two or three prior episodes of anxiety in her life which have most frequently lasted just about a day or so, once when she had a concurrence of very stressful life events; lasted for a little bit more than that and she wound up on imipramine for a short time which seemed to take care of it. This is longer-lasting than she has had in the past however, now has lasted for a couple of weeks. She primarily gets it at night but once or twice has had an episode during the day. She describes a sensation of internal disquieting that's so bad that it is intolerable. She notices her heart beating. No sense of doom. She doesn't believe anything bad is happening to her during an episode. She finds that she is having some difficult concentrating when that happens, and except for the Xanax that she is occasionally taking at night, she wouldn't be able to sleep. Also when she had the episode during the day, found that she had difficulty concentrating at work. Family history of hypothyroidism. I note that Dr. Whitten recently checked a TSH. Also she notes a family history that is concerning to her of familial interstitial pulmonary fibrosis that's idiopathic. Only men in her family have got it, and she's not sure if she might be at risk for it. P: The plan is to continue the Xanax for now. I gave her a prescription for 60 pills because she is taking two pills at night of 0.25, and one refill on that. She'll follow up with me in three or four weeks. At that time we'll check a TSH again as well, to make sure she's just not at the beginning of an episode, and she also has an appointment scheduled with Shabnam Cardoso for an evaluation. Note also that on brief exam her thyroid was normal. Her heart was regular, and her lungs were clear. cc: MOTIVE GLASS SPECIALIST documented in this encounter Plan of Treatment Upcoming Encounters Date Type Specialty Care Team Description 07/07/2022 Appointment Optometry Los Vences, OD [address] [facility] [place] [address] (Wo rk) documented as of this encounter Visit Diagnoses Not on filedocumented in this encounter Care Teams Records Technician Relationship Specialty Start Date End Date Kcaey Hyatt MD PCP - General 11/17/1997 12/26/99 documented as of this encounter
--- OUTSIDE RECORDS SUMMARY | 2022-05-13 16:40 | XMS_ITS | Encounter Summary ---
:1955 Author Organization [facility] Address [address] [place] [address] Care Team Providers Name Role Phone Souleymane Dangelo MD Primary Care Provider Reason for Visit Reason Comments CONTACTS,NO PROBLEMS RECHECK VIA INTERFACE Encounter Details Date Type Department Care Team Description 06/19/2000 Office Visit [facility] Jordan Dial OD [place] [address] [place] [address] [place] [address] [phone] (Wo rk) Social History Tobacco Use Types Packs/Day Years Used Date Smoking Tobacco: Never Assessed Sex Assigned at Date Recorded Not on file documented as of this encounter Plan of Treatment Upcoming Encounters Date Type Specialty Care Team Description 07/07/2022 Appointment Optometry [place] Vences, OD [address] [place], [place] [address] (Wo rk) documented as of this encounter Visit Diagnoses Diagnosis Myopia documented in this encounter Care Teams Hostess Cashier Relationship Specialty Start Date End Date Souleymane Dangelo MD PCP - General 12/27/99 11/27/[address] [place] [address] documented as of this encounter
--- OUTSIDE RECORDS SUMMARY | 2022-05-13 16:40 | XMS_ITS | Encounter Summary ---
:1955 Author Organization [facility] Address [address] [place] [address] Care Team Providers Name Role Phone Unavailable Primary Care Provider Unavailable Reason for Visit Reason Comments Med Refill Encounter Details Date Type Department Care Team Description 05/13/2022 Refill Division of Nephrology and Chalino, Farhan Ojeda Jr., Med Refill Hypertension in [facility] [address] [facility] [address] [place] [address] [place] [address] [phone] Social History Tobacco Use Types Packs/Day Years Used Date Smoking Tobacco: Never Assessed Sex Assigned at Date Recorded Not on file documented as of this encounter Miscellaneous Notes Telephone Encounter - Sobeida Mesa - 05/13/2022 9:23 AM CDT Medication refill request for: Fluticasone 50 MCG nasal Forwarded to nurses. documented in this encounter Plan of Treatment Not on filedocumented as of this encounter Visit Diagnoses Not on filedocumented in this encounter
--- OUTSIDE RECORDS SUMMARY | 2022-05-13 16:40 | XMS_ITS | Encounter Summary ---
:1955 Author Organization [facility] Address [address] [address] Care Team Providers Name Role Phone Kacey Hyatt MD Primary Care Provider Unavailable Encounter Details Date Type Department Care Team Description 11/26/1998 Orders Only Babita Dangelo MD [address] [place] [address] (Wo rk) Social History Tobacco Use Types Packs/Day Years Used Date Smoking Tobacco: Never Assessed Sex Assigned at Date Recorded Not on file documented as of this encounter Plan of Treatment Upcoming Encounters Date Type Specialty Care Team Description 07/07/2022 Appointment Optometry Los Vences ne, OD [address] [place], [place] [address] (Wo rk) documented as of this encounter Procedures Procedure Name Priority Date/Time Associated Diagnosis Comme nts TSH, SENSITIVE Routine 11/26/1998 3:52 PM Results for this (WITH REFLEX) OTHER SPATIAL SCIENTIST procedure are in the results section. documented in this encounter Results TSH, SENSITIVE (11/26/1998 3:52 PM OTHER SPATIAL SCIENTIST) P athologist Signature TSH 1.88 0.30 - 5.00 [facility] uIU/ml Thyroid Meds No [facility] Specimen Anatomical Collection Method Collection Time Receive d Time (Source) Location / / Volume Laterality 11/26/1998 3:52 PM 9 3:53 OTHER SPATIAL SCIENTIST PM OTHER SPATIAL SCIENTIST Souleymane Dangelo MD LAB_1 Performing Organization Address City/State/ZIP Code Phon e Number [facility] [phone] [facility] [address] [place] [address] documented in this encounter Visit Diagnoses Not on filedocumented in this encounter Care Teams Leather Piece Inspector Relationship Specialty Start Date End Date Kacey Hyatt MD PCP - General 11/17/1997 12/26/99 documented as of this encounter
--- OUTSIDE RECORDS SUMMARY | 2022-05-13 16:40 | XMS_ITS | Encounter Summary ---
:[address] [facility] Address [address] [place] [address] Care Team Providers Name Role Phone Kacey Hyatt MD Primary Care Provider Unavailable Encounter Details Date Type Department Care Team Description 10/18/1998 Orders Only Social History Tobacco Use Types Packs/Day Years Used Date Smoking Tobacco: Never Assessed Sex Assigned at Date Recorded Not on file documented as of this encounter Plan of Treatment Upcoming Encounters Date Type Specialty Care Team Description 07/07/2022 Appointment Optometry Los Vences ne, OD [address] [place], [place] [address] (Wo rk) documented as of this encounter Procedures Procedure Name Priority Date/Time Associated Diagnosis Comme nts STREP GRP A, RAPID Waiting 10/18/1998 1:54 PM Res ults for this SCREEN AREA MECHANIC procedure are i n the results section. documented in this encounter Results RAPID, GPA STREP SCREEN (WAITI (10/18/1998 1:54 PM AREA MECHANIC) [facility] gist Method Time Signature Patient Home [phone] Drive Phone # Patient Work None [facility] Phone # Grp A Rapid Negative [facility] Screen Grp A Culture Negative [facility] Final Specimen Anatomical Collection Method Collection Time Receive d Time (Source) Location / / Volume Laterality 10/18/1998 1:54 PM 9 1:55 AREA MECHANIC PM AREA MECHANIC Wy Nursing Rn LAB_1 Performing Organization Address City/State/ZIP Code Phon e Number [facility] [phone] [place] [address] [place] [address] documented in this encounter Visit Diagnoses Not on filedocumented in this encounter Care Teams Maintenance Mechanic Elevators Relationship Specialty Start Date End Date Kacey Hyatt MD PCP - General 11/17/1997 12/26/99 documented as of this encounter
--- OUTSIDE RECORDS SUMMARY | 2022-05-13 16:40 | XMS_ITS | Encounter Summary ---
:1955 Author Organization [facility] Address [address] [place] [address] Care Team Providers Name Role Phone Unavailable Primary Care Provider Unavailable Reason for Visit Appointment Request (Routine) - Authorized Specialty Diagnoses / Procedures Referred By Contact Refer red To Contact Nephrology and Hypertension Referral ID Status Reason Start Date Expiration Date Visits V isits Requested Authorized [id number] Authorized 08/30/2021 08/30/2022 1 1 Encounter Details Date Type Department Care Team Description 10/07/2021 Documentation Division of Nephrology and Chan Allred No Show Hypertension in Jr. Saucedo D.O. [place] [address] [facility] [address] [place] [address] [phone] (Wo rk) Social History Tobacco Use Types Packs/Day Years Used Date Smoking Tobacco: Never Assessed Sex Assigned at Date Recorded Not on file documented as of this encounter Progress Notes Edward Allred Jr., D.O. - 10/07/2021 2:30 PM CST Note to close EPIC documented in this encounter Plan of Treatment Not on filedocumented as of this encounter Visit Diagnoses Not on filedocumented in this encounter
--- OUTSIDE RECORDS SUMMARY | 2022-05-13 16:40 | XMS_ITS | Encounter Summary ---
:1955 Author Organization [facility] Address [address] [place] [address] Care Team Providers Name Role Phone Unavailable Primary Care Provider Unavailable Reason for Visit Reason Comments Rx Prior Authorization Encounter Details Date Type Department Care Team Description 12/02/2021 Clinical Division of Chalino, Rx Prior Communication Nephrology and Edward Ojeda Jr., Authorizati on [place]ension [place] [address] [facility] [address] [place] [address] [phone] Social History Tobacco Use Types Packs/Day Years Used Date Smoking Tobacco: Never Assessed Sex Assigned at Date Recorded Not on file documented as of this encounter Miscellaneous Notes Telephone Encounter - Viviane Dixon - 12/06/2021 10:58 AM CDT Approved 12/03/21-12/03/22 Telephone Encounter - Viviane Dixon - 12/02/2021 11:55 AM CDT Faxed Prior Authorization Request for Irbesartan 75 mg tablets to [facility] at [phone]. If you have any questions, please contact the Prior Authorization Team at [phone] or [employer] [place] #[facility] EPAPOLIZABETH. documented in this encounter Plan of Treatment Not on filedocumented as of this encounter Visit Diagnoses Not on filedocumented in this encounter
--- OUTSIDE RECORDS SUMMARY | 2022-05-13 16:40 | XMS_ITS | Encounter Summary ---
:1955 Author Organization [facility] Address [address] [place] [address] Care Team Providers Name Role Phone Unavailable Primary Care Provider Unavailable Encounter Details Date Type Department Care Team Description 05/08/2022 Orders Only Division of Nephrology and Farhan Allred Hypertension in [place], ., D.O. [place] [address] [facility] [address] [place] [address] [phone] (Wo rk) Social History Tobacco Use Types Packs/Day Years Used Date Smoking Tobacco: Never Assessed Sex Assigned at Date Recorded Not on file documented as of this encounter Plan of Treatment Not on filedocumented as of this encounter Visit Diagnoses Not on filedocumented in this encounter
--- OUTSIDE RECORDS SUMMARY | 2022-05-13 16:40 | XMS_ITS | Encounter Summary ---
:1955 Author Organization [facility] Address [address] [place] [address] Care Team Providers Name Role Phone Unavailable Primary Care Provider Unavailable Reason for Visit Reason Comments Med Refill Encounter Details Date Type Department Care Team Description 03/01/2021 Refill Division of Nephrology and Chal[place], Farhan Ojeda Jr., Med Refill Hypertension in [facility] [address] [facility] [address] [place] [address] [place] [address] [phone] Social History Tobacco Use Types Packs/Day Years Used Date Smoking Tobacco: Never Assessed Sex Assigned at Date Recorded Not on file documented as of this encounter Miscellaneous Notes Telephone Encounter - Georgina Parikh - 03/01/2021 9:33 AM CDT Medication refill request for Simvastatin 20 mg tab. Forwarded to nurses. documented in this encounter Plan of Treatment Not on filedocumented as of this encounter Visit Diagnoses Diagnosis Hyperlipidemia documented in this encounter
--- OUTSIDE RECORDS SUMMARY | 2022-05-13 16:40 | XMS_ITS | Encounter Summary ---
:1955 Author Organization [facility] Address [address], [place] [address] Care Team Providers Name Role Phone Kacey Hyatt MD Primary Care Provider Unavailable Encounter Details Date Type Department Care Team Description 10/27/1998 Office Visit Kendall Whitten MD [address] [place], [place] [address] (Wo rk) Social History Tobacco Use Types Packs/Day Years Used Date Smoking Tobacco: Never Assessed Sex Assigned at Date Recorded Not on file documented as of this encounter Progress Notes Kendall Whitten - 10/28/1998 12:00 AM CSTS: This is a 43-year-old female who I saw yesterday regarding anxiety. I have given her some Xanax and apparently this hasn't been helping. Some palpitations. Please review my history yesterday. Family history is negative for anxiety disorder. REVIEW OF SYSTEMS No suicidal ideation. No weight loss. No numbness. O: On exam today; looks anxious but no suicidal ideation. The interview was with her . Pulse 72. Respirations 16. BP 160/90. HEENT examination; negative for any inflammation or thyroid mass. Lungs are clear. No crackles. Heart tones regular no murmurs. Abdomen soft nontender. No organomegaly. Extremities with no edema. No cyanosis. Cranial nerves are intact. The rest of the neurological exam is essentially unchanged. A: Anxiety attacks. P: Will update the lab database. Check PSA, CBC, ESR and glucose. These are all unremarkable. Will consider referring her to Mental Health for further recommendations. Xanax can be taken one to two tablets three times a day for now. Patient and are in agreement to the plan. IN SUMMARY: ANXIETY DISORDER cc: NE SERVICES MANAGER Kendall Whitten - 10/27/1998 12:00 AM CSTS. 43-year-old female who comes in for refill of her Xanax. Patient, apparently, gets anxiety attacks about one or twice a year. Last prescription that she had was about two years ago when she was given 17 tablets and this has . She still has some tablets in the bottle. Patient mentions that with upper respiratory infection symptom, she would usually have difficulty sleeping and Xanax has helped in the past. She has been having some flu symptoms with this, congestion, nonspecific aches and pains, but no shortness of breath. Her daughter and her , also, have similar problems. O. A little bit anxious but no suicidal ideation. Temperature 98, pulse 68, respirations 16, blood pressure 130/90. Good eye contact. No tremors, no thyroid mass. Lungs are clear, no crackles. Heart tones regular. There is sinus congestion and cervical lymphadenopathy with tympanic membranes inflammation. No tremors. A. Acute viral syndrome. Anxiety. P. Conservative treatments. As far as the anxiety is concerned, it will be fine to just give her some Xanax to use as needed. Total of 30 given. And, if her anxiety becomes more frequent, she would need a follow-up. IN SUMMARY: ACUTE VIRAL SYNDROME, ANXIETY cc: NE SERVICES MANAGER documented in this encounter Plan of Treatment Upcoming Encounters Date Type Specialty Care Team Description 07/07/2022 Appointment Optometry Los Vences, OD [address] [place], [place] [address] (Wo rk) documented as of this encounter Visit Diagnoses Not on filedocumented in this encounter Care Teams Veterinary Milk Specialist Relationship Specialty Start Date End Date Kacey Hyatt MD PCP - General 11/17/1997 12/26/99 documented as of this encounter
--- OUTSIDE RECORDS SUMMARY | 2022-05-13 16:40 | XMS_ITS | Encounter Summary ---
:1955 Author Organization [facility] Address [address] [place] [address] Care Team Providers Name Role Phone Kacey Hyatt MD Primary Care Provider Unavailable Reason for Visit Reason Comments ERRONEOUS ENTRY Encounter Details Date Type Department Care Team Description 10/26/1998 Telephone Careline Letitia Corado RN ERRONEOUS ENTRY [address] [place], [place] [address] [phone] [place] [address] Social History Tobacco Use Types Packs/Day Years Used Date Smoking Tobacco: Never Assessed Sex Assigned at Date Recorded Not on file documented as of this encounter Nursing Notes 10/26/1998 11:59 PM OPTICIAN MANAGER >> CALL RECEIVED. Contact: >> ALEX CARTER 10/28/1998 09:15 am documented in this encounter Plan of Treatment Upcoming Encounters Date Type Specialty Care Team Description 07/07/2022 Appointment Optometry Los Vences, OD [address] [place], [place] [address] (Wo rk) documented as of this encounter Visit Diagnoses Not on filedocumented in this encounter Care Teams Parole Agent Relationship Specialty Start Date End Date Kacey Hyatt MD PCP - General 11/17/1997 12/26/99 documented as of this encounter
--- OUTSIDE RECORDS SUMMARY | 2022-05-13 16:40 | XMS_ITS | Encounter Summary ---
:1955 Author Organization [facility] Address [address] [place] [address] Care Team Providers Name Role Phone Unavailable Primary Care Provider Unavailable Encounter Details Date Type Department Care Team Description 12/03/2021 Orders Only Pharmacy Prior Auth Lorin Cardona [phone] Social History Tobacco Use Types Packs/Day Years Used Date Smoking Tobacco: Never Assessed Sex Assigned at Date Recorded Not on file documented as of this encounter Plan of Treatment Not on filedocumented as of this encounter Visit Diagnoses Not on filedocumented in this encounter
--- OUTSIDE RECORDS SUMMARY | 2022-05-13 16:40 | XMS_ITS | Encounter Summary ---
:1955 [facility] Address [address] [address] Care Team Providers Name Role Phone Sera Son MD Primary Care Provider Encounter Details Date Type Department Care Team Description 10/27/1998 Orders Only Kendall Whitten Social History Tobacco Use Types Packs/Day Years Used Date Smoking Tobacco: Never Assessed Sex Assigned at Date Recorded Not on file documented as of this encounter Plan of Treatment Upcoming Encounters Date Type Specialty Care Team Description 07/07/2022 Appointment Optometry Los Vences ne, OD [address] [place], [place] [address] (Wo rk) documented as of this encounter Visit Diagnoses Not on filedocumented in this encounter Care Teams Floor Waxer Relationship Specialty Start Date End Date Sera Son MD PCP - General Internal Medicine 11/28/[address] [place] [address] documented as of this encounter
--- OUTSIDE RECORDS SUMMARY | 2022-05-13 16:40 | XMS_ITS | Encounter Summary ---
:1955 Author Organization [facility] Address [address] [address] Care Team Providers Name Role Phone Kacey Hyatt MD Primary Care Provider Unavailable Encounter Details Date Type Department Care Team Description 02/13/1999 Office Visit Shabnam Cardoso, TELEVISION SCRIPT WRITER, REGIONAL TRANSPORTATION MANAGER [address] [place], [place] [address] (Wo rk) Social History Tobacco Use Types Packs/Day Years Used Date Smoking Tobacco: Never Assessed Sex Assigned at Date Recorded Not on file documented as of this encounter Progress Notes Shabnam Cardoso - 02/13/1999 12:00 AM CDTS: Ms. Nicole is here for a 45 minute individual therapy appointment. She saw me for an intake consultation session in November. Since then, she says she has begun to feel significantly better. She feels that the reduction in Paxil from 20 mg a day to 10 mg was very significant in helping her to sleep better and therefore feel better. She is feeling good in her work life, with family members. Sleep is good, appetite is fine. Her mood is stable and primarily up beat. The one thing that she still remains somewhat concerned about is that her awareness of her own response to any physiologic sensation of stress even when the stressor is fairly benign like a sad movie. She notice her own physiologic tension and can quickly do some what if thinking about those old feelings of doom associated with panic attacks in the past. She does not get into any panic symptoms just this noticing of tension and the what if thinking. She had not yet read Cathryn Weeks book and I again encouraged her to do so particularly the chapter on the physiology of anxiety. I think that if she could just notice her physiologic response and do some deep breathing as she accepts that she has some sensitivity to these physiologic arousal of symptoms then she could just move beyond these sensations in a pretty matter of face manner. O: Follow up visit focused on preventing and managing anxiety. A: Ms. Nicole is doing very well. I think that this visit served as a helpful follow-up on developing some strategies for managing her sensitivity to any physiologic sensation of stress. She has been significantly helped by the Paxil and this present dose seems good for her. If she can understand a bit more about the physiology of anxiety and take a more matter of fact approach to her own particular sensitivity I think she will continue to do extremely well. P: There are no further visits planned with me but she is aware that she can call at anytime and make an appointment. cc: Shabnam Cardoso MS,RN,CS documented in this encounter Plan of Treatment Upcoming Encounters Date Type Specialty Care Team Description 07/07/2022 Appointment Optometry oLs Vences, OD [address] [place], [place] [address] (Wo rk) documented as of this encounter Visit Diagnoses Not on filedocumented in this encounter Care Teams Psychiatric Tech Relationship Specialty Start Date End Date Kacey Hyatt MD PCP - General 11/17/1997 12/26/99 documented as of this encounter
--- OUTSIDE RECORDS SUMMARY | 2022-05-13 16:40 | XMS_ITS | Encounter Summary ---
:1955 Author Organization [facility] Address [address], [place] [address] Care Team Providers Name Role Phone Kacey Haytt MD Primary Care Provider Unavailable Encounter Details Date Type Department Care Team Description 12/05/1998 Office Visit Shabnam Cardoso, BUILDING SUPERINTENDENT, DISPLAY DECORATOR [address] [place], [place] [address] (Wo rk) Social History Tobacco Use Types Packs/Day Years Used Date Smoking Tobacco: Never Assessed Sex Assigned at Date Recorded Not on file documented as of this encounter Progress Notes Shabnam Cardoso - 12/05/1998 12:00 AM CSTS: The patient is a 43-year-old woman, , with four children, who is referred by Dr. Dangelo for treatment of anxiety. REVIEW OF SYMPTOMS: The patient had a recent anxiety episode in October coupled with having an upper respiratory flu. She took p.r.n. Xanax which is what she has been used to taking for treatment of these brief episodes, but ended up having more of a problem with getting rid of these symptoms than usual. For her, the symptoms are feeling physically restless and hyper, wanting to leave my body, being very aware of her breathing and her heartbeat. She does not hyperventilate or have shortness of breath. She is somewhat thinking what if this continues to get worse, but does not have fears of dying. It does not sound like she has reorganized her life in terms of not driving or not working, etc. She indicates that her family has been supportive of her while she grapples with these symptoms. She feels like she has improved over the last few weeks and is really trying to use very little Xanax and also, according to her, has started on Paxil as of last week. She thinks this may be helping some. It does have some minor side effects of dryness of mouth and some fatigue. REVIEW OF HISTORY: The patient had her first anxiety episode in 1979. She said this incident as well as all others following it have been connected with her being ill, usually with an upper respiratory illness. She did not have another episode until 1990. This was a very high stress time for her and she also had a cold during this time. She used p.r.n. Xanax and felt better fairly quickly. She also has had some very minor episodes here and there that have been quickly resolved by p.r.n. Xanax. She has a high desire to use as little of this medication as possible, but feels reassured by having it available to her. She is not able to associate any particular fear or past trauma with her anxiety episodes. She states she did remember having a very bad hay fever episode when she was a child and having some difficulty breathing, but as we looked into this further she had nothing like difficulty catching her breath, it was more of just being stuffed up and not breathing as well. Her father of an interstitial pulmonary fibrosis. She believes this had nothing to do with her own symptoms having to do with breathing. She did not feel like he had a particularly traumatic , nor did she get over-focused on his problems of breathing. She denies any family history of anxiety, although thinks there is some depression on her mother's side of the family. MARITAL/FAMILY HISTORY: The patient is the oldest of four daughters. Mother is still living. Father of pulmonary fibrosis as did two of his three brothers. We did not take a lot of additional family history other than to note that the patient felt like her mother dealt with illnesses of her children in a pretty matter of fact and caring way. There was no hypochondriacal expression in the family. She had no traumatic illnesses or injuries as a child. She and her present of 20+ years did have a when they were in high school and adopted this . She said this was a difficult time, but they certainly coped well with it and went on to have a very good life together. She feels like her family is quite stable and that she has excellent relationships with her children. MEDICAL/MENTAL STATUS: The patient is in good health. See above history of her anxiety disorder. She continues to take p.r.n. Xanax, although is trying to eliminate it if possible. According to patient, she is also on Paxil, although the most recent dictation is not available for me to verify that from Dr. Dangelo. During the interview today, she was forthright, concentrated well during the interview, showed logical thought processes and had a range of affect although was fairly emotionally reserved. ASSESSMENT/DIAGNOSTIC IMPRESSION: 300.01 - Panic disorder without agoraphobia. The patient has a panic disorder that has not been highly disruptive to her over her life. She appears to have learned how to manage it with fairly low doses of p.r.n. Xanax. However, particular episode has been more tenacious and she would very much like to get rid of these feelings of unease and over-focus on her breathing and heartbeat. She would very much like to return to how she felt before. She said that things are not perfect in her life, of course, but that overall her life is going well. It does not appear to be that there are any major parts of her life that are unresolved and thus troubling her, contributing to anxiety episodes in the present. It may be that she has some predisposition to an anxiety response when experiencing the initial symptoms of anxiety coupled with having upper respiratory infection. This association has been laid down over a period of about 20 years. I think some cognitive behavioral techniques may be quite helpful to her and may enable her to stop using the Xanax and perhaps prevent episodes from occurring in the first place. I recommended that she read Marianalucero Sepulveda book Hope and Help for Your Nerves, which is often quite helpful to patients in a very practical way. The patient could use some help in understanding the physiology of anxiety so that her symptoms would make more sense to her. In addition, Coco' four-step approach to responding to any anxiety symptoms is quite easily learned and applied. I also talked with her about the possibility of joining Dr. Villalta's anxiety group at the [facility] through the mental health department. She was less interested in this, hoping to just try to get rid of this as soon as possible and use the least involved strategy. PLAN: What she will do is purchase the Weeks' book and read it and try to implement some of the recommendations. She will make a follow-up appointment with me in about a month after she has had time to implement these strategies as well as have a longer period of time on the Paxil. This plan is satisfactory to patient. cc: Souleymane Dangelo M.D. cc: MESS ATTENDANT documented in this encounter Plan of Treatment Upcoming Encounters Date Type Specialty Care Team Description 07/07/2022 Appointment Optometry [place] Vences, OD [address] [place], [place] [address] (Wo rk) documented as of this encounter Visit Diagnoses Not on filedocumented in this encounter Care Teams Senior Business Architect Relationship Specialty Start Date End Date Kacey Hyatt MD PCP - General 11/17/1997 12/26/99 documented as of this encounter
--- OUTSIDE RECORDS SUMMARY | 2022-05-13 16:40 | XMS_ITS | Encounter Summary ---
:1955 Author Organization [facility] Address [address] [place] [address] Care Team Providers Name Role Phone Unavailable Primary Care Provider Unavailable Reason for Visit Appointment Request (Routine) - Closed Specialty Diagnoses / Procedures Referred By Contact Refer red To Contact Nephrology and Hypertension Referral ID Status Reason Start Date Expiration Date Visits Requ ested Visits Authorized [id number] Closed 04/17/2022 04/17/2023 1 Encounter Details Date Type Department Care Team Description 05/05/2022 External Outreach Division of Chal[place], Hypertensi on And Chronic Kidney Disease Stage 1 To 4 (Primary Dx); Nephrology and Edward Ojeda Jr., Chronic Kidn ey Disease Stage 1 Glomerular Filtration Rate Greater Than 90; Hypertension in D.O. Hyperlipidemia [place], [place] [address] [facility] [address] [place] [phone] Social History Tobacco Use Types Packs/Day Years Used Date Smoking Tobacco: Never Assessed Sex Assigned at Date Recorded Not on file documented as of this encounter Last Filed Vital Signs Vital Sign Reading Time Taken Comments Blood Pressure 123/70 05/05/2022 3:26 PM CDT Pulse 63 05/05/2022 3:26 PM CDT Temperature - - Respiratory Rate - - Oxygen Saturation - - Inhaled Oxygen Concentration - - Weight 74.4 kg (164 lb) 05/05/2022 3:26 PM CDT Height 167.6 cm (5' 6) 05/05/2022 3:26 PM CDT Body Mass Index 26.47 05/05/2022 3:26 PM CDT documented in this encounter Progress Notes Edward Allred Jr., D.O. - 05/05/2022 3:00 PM CDT Referring Provider: Dr Huy DUNN [place] [facility] REASON FOR VISIT Follow-up regards CKD stage 1, with hypertension and subnephrotic range proteinuria HISTORY OF PRESENT ILLNESS Ms. Nicole is a 67 y.o. female who presents with the above matters Since our last visit she has done well they have moved to [place]. Her blood pressures been excellent, without orthostatic issues nor lower extremity edema. She has had no change in urine character orquantity, no shortness of breath, no chest pain, no other constitutional complaints. I reviewed her labs with her which show a normal serum creatinine level, normal CBC, microalbumin to creatinine ratio of 20. History reviewed. No pertinent past medical history. Current Outpatient Medications: fluticasone propionate (FLONASE) 50 mcg/actuation nasal spray, Administer 2 sprays into each nostril daily. Shake well before use., Disp: 16 g, Rfl: 11 irbesartan (AVAPRO) 75 mg tablet, Take 1.5 tablets (112.5 mg total) by mouth daily., Disp: 135 tablet, Rfl: 3 aspirin 81 mg chewable tablet, Chew daily., Disp: , Rfl: cetirizine (ZyrTEC) 5 mg tablet, Take by mouth daily., Disp: , Rfl: hydroCHLOROthiazide (MICROZIDE) 12.5 mg capsule, Take 1 capsule (12.5 mg total) by mouth daily., Disp: 90 capsule, Rfl: 3 multivitamin with iron-mineral tablet, Take by mouth daily., Disp: , Rfl: PARoxetine (PAXIL) 10 mg tablet, Take 1 tablet (10 mg total) by mouth daily., Disp: 90 tablet, Rfl:3 simvastatin (ZOCOR) 20 mg tablet, TAKE 1 TABLET(20 MG) BY MOUTH AT BEDTIME, Disp: 90 tablet, Rfl: 3 REVIEW OF SYSTEMS All other systems reviewed and are negative. OBJECTIVE BP 123/70 Pulse 63 Ht 167.6 cm Wt 74.4 kg BMI 26.47 kg/m?? PHYSICAL EXAMINATION General: Awake alert oriented HEENT: DUTCH, EOMI, Mucous membranes moist, no oral lesions Neck: No Masses, No Bruits Lungs: Clear to ascultation Heart: Regular Rate and Rhythm, No ectopy Murmurs or rubs Abdomen: Soft, Non-tender Extremities: No cyanosis, No clubbing: No edema Neuro: Cranial Nerves intact, Gait is normal, strength grossly normal Skin: no suspicious lesions identified Psychiatric: Normal affect DIAGNOSTICS All reviewed normal as above ASSESSMENT / PLAN #1 Hypertension And Chronic Kidney Disease Stage 1 To 4 Her blood pressure is well controlled on her current regimen including irbesartan, HCTZ. She is avoiding sodium staying active and has lost 8 lb. She is a nonsmoker has no sleep disordered breathing. She will continue to see her primary care internal medicine physician I will be available should there be further questions. #2 Chronic Kidney Disease Stage 1 Glomerular Filtration Rate Greater Than 90 As above, her proteinuria resolved as she ceased use of her NSAIDs, and there has been no recurrence. #3 Hyperlipidemia Well controlled Total time: 30 minutes Counseling Time: 25 minutes Edward Allred Jr., D.O. documented in this encounter Plan of Treatment Not on filedocumented as of this encounter Visit Diagnoses Diagnosis Hypertension And Chronic Kidney Disease Stage 1 To 4 - Primary Chronic Kidney Disease Stage 1 Glomerula r Filtration Rate Greater Than 90 Hyperlipidemia documented in this encounter
--- OUTSIDE RECORDS SUMMARY | 2022-05-13 16:40 | XMS_ITS | Encounter Summary ---
:1955 [address] [facility] Address [address] [address] Care Team Providers Name Role Phone Sera Son MD Primary Care Provider Encounter Details Date Type Department Care Team Description 01/08/2000 Orders Only Babita Dangelo MD [address] [place] [phone] (Wo rk) Social History Tobacco Use Types Packs/Day Years Used Date Smoking Tobacco: Never Assessed Sex Assigned at Date Recorded Not on file documented as of this encounter Plan of Treatment Upcoming Encounters Date Type Specialty Care Team Description 07/07/2022 Appointment Optometry Los Vences ne, OD [address] [place], [place] [address] (Wo rk) documented as of this encounter Visit Diagnoses Not on filedocumented in this encounter Care Teams Procurement Buyer Relationship Specialty Start Date End Date Sera Son MD PCP - General Internal Medicine [address] [place] [address] documented as of this encounter
--- OUTSIDE RECORDS SUMMARY | 2022-05-13 16:40 | XMS_ITS | Encounter Summary ---
:1955 Author Organization [facility] Address [address], [place] [address] Care Team Providers Name Role Phone Kacey Hyatt MD Primary Care Provider Unavailable Encounter Details Date Type Department Care Team Description 11/29/1998 Office Visit Babita Dangelo MD [address] [place] [address] (Wo rk) Social History Tobacco Use Types Packs/Day Years Used Date Smoking Tobacco: Never Assessed Sex Assigned at Date Recorded Not on file documented as of this encounter Progress Notes Souleymane Dangelo - 11/29/1998 12:00 AM CSTS: Continues to have some problems not really noticing any improvement on the Xanax. She really feels like there is something wrong medically but doesn't know why or what to look for. Does not have specifically a sense of doom or a sense that she will or anything like that. She is able to sleep. One night when she skipped the Xanax woke up in the middle of the night unable to sleep until she took it. Other than that internal sense of disquieting, no other specific symptoms now at all. Specifically went through a complete review of systems that was negative. Again, reviewed her past history when she had anxiety several times just for a day or two and then once that was for a long period where she took imipramine which was quite successful for her. O: Lyjvl-vjh-kczt-old in no acute distress. Blood pressure 150/88. Pulse 78. Tympanic membranes are clear. PERRLA. EOMI. Oropharynx benign. Neck supple without adenopathy or thyromegaly. Respirations normal. Lungs are clear to auscultation and percussion. Heart regular rate and rhythm without murmur, gallop, rub, or thrill. Abdomen is benign. No hepatosplenomegaly. No mass. There is no lymphadenopathy anywhere. Extremities are without cyanosis, clubbing, or edema. Reflexes are normal. A/P: 1. I believe there is no evidence of underlying medical condition. Offered the option of some additional workup including rechecking her sed rate and doing a chest x-ray, although I really don't see any clues pointing me that way and told her I did not think it was worth pursuing. Patient agrees that is fine. Will start her on some Paxil 20 mg q.d., a pill for a couple of days and then up to the full dose, and she does have an appointment scheduled for counseling next week to learn some of the type of behavioral approaches to dealing with this. cc: GER MULTICULTURAL documented in this encounter Plan of Treatment Upcoming Encounters Date Type Specialty Care Team Description 07/07/2022 Appointment Optometry Los Vences, OD [address] [place], [place] [address] (Wo rk) documented as of this encounter Visit Diagnoses Not on filedocumented in this encounter Care Teams Cattery Operator Relationship Specialty Start Date End Date Kacey Hyatt MD PCP - General 11/17/1997 12/26/99 documented as of this encounter
--- OUTSIDE RECORDS SUMMARY | 2022-05-13 16:40 | XMS_ITS | Encounter Summary ---
:1955 Author Organization [facility] Address [address] [place] [address] Care Team Providers Name Role Phone Unavailable Primary Care Provider Unavailable Encounter Details Date Type Department Care Team Description 05/05/2022 Orders Only Division of Nephrology and Farhan Allred Hypertension in [place], ., D.O. [place] [address] [facility] [address] [place] [phone] (Wo rk) Social History Tobacco Use Types Packs/Day Years Used Date Smoking Tobacco: Never Assessed Sex Assigned at Date Recorded Not on file documented as of this encounter Plan of Treatment Not on filedocumented as of this encounter Visit Diagnoses Not on filedocumented in this encounter
--- OUTSIDE RECORDS SUMMARY | 2022-05-13 16:40 | XMS_ITS | Encounter Summary ---
:1955 Author Organization [facility] Address [address] [place] [address] Care Team Providers Name Role Phone Souleymane Dangelo MD Primary Care Provider Reason for Visit Reason Comments RASH VIA INTERFACE Encounter Details Date Type Department Care Team Description 03/20/2000 Office Visit [facility] abdi Chris Brand MD DERMATITIS NOS [address] [place] [address] [place] [address] (Wo rk) Social History Tobacco Use Types Packs/Day Years Used Date Smoking Tobacco: Never Assessed Sex Assigned at Date Recorded Not on file documented as of this encounter Progress Notes Chris Brand - 03/20/2000 12:00 AM CDTPROBLEM: RASH. S: The patient has noted a rash by her right side of her nose for a couple of weeks. It has tended to come and go and sometimes is pruritic. She has had a sense of a burning injury to the roof of her mouth during this same period of time. She has a history of allergies and uses Ana. She has noted no improvement with one application of hydrocortisone cream on the nose. O: Weight is 156 lb, blood pressure 120/80, temperature 97.7. Examination of the face reveals an erythematous, slightly scaly area that is fairly well circumscribed on the right side of the nose, back towards the eye. I couldn't see any definite abnormalities in the roof of the mouth. A: Seborrheic dermatitis versus eczema. P: Patient will continue the 1% hydrocortisone cream on the area of the rash on the nose three to four times a day and follow-up if it doesn't improve within ten to fourteen days. She was also given some Triamcinolone and Orabase to use on the roof of her mouth for that area of rash. cc: documented in this encounter Plan of Treatment Upcoming Encounters Date Type Specialty Care Team Description 07/07/2022 Appointment Optometry Los Vences, OD [address] [place], [place] [address] (Wo rk) documented as of this encounter Visit Diagnoses Diagnosis Contact dermatitis and other eczema, due to unspecified cause documented in this encounter Care Teams Child Protective Investigator Relationship Specialty Start Date End Date Souleymane Dangelo MD PCP - General 12/27/99 11/27/[address] [place] [address] documented as of this encounter
--- OUTSIDE RECORDS SUMMARY | 2022-05-13 16:40 | XMS_ITS | Encounter Summary ---
:1955 [facility] Address [address], [place] [address] Care Team Providers Name Role Phone Sera Son MD Primary Care Provider Encounter Details Date Type Department Care Team Description 11/07/1998 Orders Only Souleymane Dangelo Social History Tobacco Use Types Packs/Day Years Used Date Smoking Tobacco: Never Assessed Sex Assigned at Date Recorded Not on file documented as of this encounter Plan of Treatment Upcoming Encounters Date Type Specialty Care Team Description 07/07/2022 Appointment Optometry Los Vences ne, OD [address] [place], [place] [address] (Wo rk) documented as of this encounter Visit Diagnoses Not on filedocumented in this encounter Care Teams Blow Mold Technician Relationship Specialty Start Date End Date Sera Son MD PCP - General Internal Medicine 11/28/[address] [place] [address] documented as of this encounter
--- OUTSIDE RECORDS SUMMARY | 2022-05-13 16:40 | XMS_ITS | Encounter Summary ---
:1955 Author [facility] Address [address], [place] [address] Care Team Providers Name Role Phone Sera Son MD Primary Care Provider Encounter Details Date Type Department Care Team Description 11/29/1998 Orders Only Souleymane Dangelo Social History Tobacco Use Types Packs/Day Years Used Date Smoking Tobacco: Never Assessed Sex Assigned at Date Recorded Not on file documented as of this encounter Plan of Treatment Upcoming Encounters Date Type Specialty Care Team Description 07/07/2022 Appointment Optometry Los Vences ne, OD [address] [place], [place] [address] (Wo rk) documented as of this encounter Visit Diagnoses Not on filedocumented in this encounter Care Teams Spot Machine Operator Relationship Specialty Start Date End Date Sera Son MD PCP - General Internal Medicine 11/28/[address] [place] [address] documented as of this encounter
--- OUTSIDE RECORDS SUMMARY | 2022-05-13 16:40 | XMS_ITS | Encounter Summary ---
:1955 Author Organization [facility] Address [address] [place] [address] Care Team Providers Name Role Phone Unavailable Primary Care Provider Unavailable Reason for Visit Appointment Request (Routine) - Closed Specialty Diagnoses / Procedures Referred By Contact Refer red To Contact Nephrology and Hypertension Referral ID Status Reason Start Date Expiration Date Visits Requ ested Visits Authorized [id number] Closed 10/18/2021 10/18/2022 1 Encounter Details Date Type Department Care Team Description 10/21/2021 External Outreach Division of Lola Allredey Disease Stage 1 Glomerular Filtration Rate Greater Than 90 (Primary Dx); Nephrology and Edward Ojeda Jr., Hypertension And Chronic Kidney Disease Stage 1 To 4; Hypertension in D.O. Hyperlipidemia [place], [place] [address] [facility] [address] [place] [address] [phone] Social History Tobacco Use Types Packs/Day Years Used Date Smoking Tobacco: Never Assessed Sex Assigned at Date Recorded Not on file documented as of this encounter Progress Notes Edward Allred Jr., D.O. - 10/21/2021 4:30 PM CST Please see scanned in note under document viewer tab for the [facility] outreach visit from this date. [employer] documented in this encounter Plan of Treatment Not on filedocumented as of this encounter Visit Diagnoses Diagnosis Chronic Kidney Disease Stage 1 Glomerula r Filtration Rate Greater Than 90 - Primary Hypertension And Chronic Kidney Disease Stage 1 To 4 Hyperlipidemia documented in this encounter
--- OUTSIDE RECORDS SUMMARY | 2022-05-13 16:40 | XMS_ITS | Encounter Summary ---
:1955 Author Organization [facility] Address [address], [place] [address] Care Team Providers Name Role Phone Kacey Hyatt MD Primary Care Provider Unavailable Encounter Details Date Type Department Care Team Description 01/23/1999 Office Visit Babita Dangelo MD [address] [place] [address] (Wo rk) Social History Tobacco Use Types Packs/Day Years Used Date Smoking Tobacco: Never Assessed Sex Assigned at Date Recorded Not on file documented as of this encounter Progress Notes Souleymane Dangelo - 01/23/1999 12:00 AM CDTS: The patient is here for a physical exam, it has been several years since she has had a check. She never had an abnormal Pap smear and has had three mammograms in the past, but after discussion about the options of mammograms in her 40s, she opted to not get them at this point. Health problems and concerns which were reviewed include her anxiety which now on Paxil is extremely well controlled. She has not needed any further need for Xanax and notes that she has had two significant side effects, however. One is tiredness and the other is loss of ability to reach orgasm in a timely manner. She is also seeing Shabnam Taveras for this problem. Her only other concern was about a mole on her forehead and additionally that she notices sometimes a shaky feeling and is wondering if she actually has a little bit of tremor in her left hand. Review of systems is otherwise negative. Health habits were reviewed. She is a nonsmoker, but her smokes outside of the home. She has rare alcohol use and no drug use. She wears a seatbelt and gets minimal physical activity. There is no domestic violence. No other safety or nutritional concerns. O: A 44-year-old female in no acute distress. Height is 5 foot 6 inches, weight 156 pounds. blood pressure 130/80. TMs are clear. PERRLA. EOMI. Conjunctivae are normal. Oropharynx benign. Neck is supple without adenopathy or thyromegaly. Respirations normal. Lungs are clear. Heart regular rate and rhythm without murmur, gallop, rub or thrill. Abdomen is benign. No hepatosplenomegaly or mass. Extremities are without clubbing, cyanosis or edema. Breasts are normal and there are no skin changes, no discharge, no lump and no axillary adenopathy. No external genitalia normal in appearance. Cervix has at approximately 3 o'clock, one area of faint redness, I believe this is because I rubbed the cervix with the speculum twice when opening it. There are no abnormal vessels on it. There is no erosion and no other visible abnormalities. Uterus is not enlarged an no adnexal masses or tenderness. Neurologic exam is grossly intact, however, there is a slight fine, resting tremor in the left hand. P: 1. She will return in about a month for a recheck and to take a visual look at her cervix and if that spot is, in fact, still there, will consider whether it needs to be biopsies or whether a colposcopy needs to be done. 2. For the tremor, will also recheck that next month. 3. She will try cutting the Paxil down from 20 to 10 and see if the does not help with her side effects when we touch base next, will consider whether to change medication or stick with this one. Also, she chooses to defer mammogram and I would start those again either when she hits menopause or if age 51, which ever is first. cc: documented in this encounter Plan of Treatment Upcoming Encounters Date Type Specialty Care Team Description 07/07/2022 Appointment Optometry Los Vences, OD [address] [place] [address] (Wo rk) documented as of this encounter Visit Diagnoses Not on filedocumented in this encounter Care Teams Snow Remover Relationship Specialty Start Date End Date Kacey Hyatt MD PCP - General 11/17/1997 12/26/99 documented as of this encounter
--- OUTSIDE RECORDS SUMMARY | 2022-05-13 16:40 | XMS_ITS | Encounter Summary ---
:1955 Author Organization [facility] Address [address] [place] [address] Care Team Providers Name Role Phone Unavailable Primary Care Provider Unavailable Encounter Details Date Type Department Care Team Description 12/06/2021 Orders Only Pharmacy Prior Auth [place] Kelley Schafer [phone] Social History Tobacco Use Types Packs/Day Years Used Date Smoking Tobacco: Never Assessed Sex Assigned at Date Recorded Not on file documented as of this encounter Plan of Treatment Not on filedocumented as of this encounter Visit Diagnoses Not on filedocumented in this encounter
--- OUTSIDE RECORDS SUMMARY | 2022-05-13 16:40 | XMS_ITS | Encounter Summary ---
:1955 Author Organization [facility] Address [address] [place] [address] Care Team Providers Name Role Phone Unavailable Primary Care Provider Unavailable Encounter Details Date Type Department Care Team Description 12/02/2021 Clinical Communication Division of Nephrology Edward Allred and Hypertension lori Ojeda Jr., D.O. [place], [place] [address] [facility] [address] [place] [phone] [phone] Social History Tobacco Use Types Packs/Day Years Used Date Smoking Tobacco: Never Assessed Sex Assigned at Date Recorded Not on file documented as of this encounter Miscellaneous Notes Telephone Encounter - Sobeida Mesa - 12/02/2021 8:51 AM CDT [facility] Ir[facility] mg. documented in this encounter Plan of Treatment Not on filedocumented as of this encounter Visit Diagnoses Not on filedocumented in this encounter
--- OUTSIDE RECORDS SUMMARY | 2022-05-13 16:40 | XMS_ITS | Encounter Summary ---
:1955 Author Organization [facility] Address [address] [address] Care Team Providers Name Role Phone Kacey Hyatt MD Primary Care Provider Unavailable Reason for Visit Reason Comments ANXIETY [place] adult 24 min Encounter Details Date Type Department Care Team Description 10/28/1998 Telephone Careline Sarah Lynne ANXIETY ([place] adult [address] 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 Contact: Self @ >> SARAH CARTER 10/28/1998 09:42 am Uses Zanax head off anxiety attacks. Noticed anxiety on ; went to [facility] & got Rx for Zanax. In past used Zanax on a prn basis for anxiety. Pt states sometimes with a respiratory illness gets anxious. Was just getting over her illness when got the anxiety attack on . Pt saw Dr. Whitten on 08/26 & he prescribed Zanax 0.25mg take one TID. Dr. Whitten wrote Rx for #30, but Pt filled only for #10 as states she ...never has needed very many to break the anxiety cycle. Feels very fatigued, yet has the sensation as though her body is racing. Dr. Whitten advised Pt to drink lots of fluids but is having a difficult time eating & drinking. Difficulty sleeping last night. Pt states has never been hospitalized for anything; she is not currently seeing any MH provider, nor has she ever been under the care of a psychiatrist. Meds: Zanax; NKA; Health hx: Family hx asthma & hyperthyroidism. Denies any suicidal ideation. Consult with Dr. Gagandeep Camargo: see in [facility] today for further assessment. documented in this encounter Plan of Treatment Upcoming Encounters Date Type Specialty Care Team Description 07/07/2022 Appointment Optometry Los Vences ne, OD [address] [place], [place] [address] (Wo rk) documented as of this encounter Visit Diagnoses Not on filedocumented in this encounter Care Teams Computer Numerical Control Operator Relationship Specialty Start Date End Date Kacey Hyatt MD PCP - General 11/17/1997 12/26/99 documented as of this encounter
--- OUTSIDE RECORDS SUMMARY | 2022-05-13 16:40 | XMS_ITS | Encounter Summary ---
:1955 Author Organization [facility] Address [address] [place] [address] Care Team Providers Name Role Phone Souleymane Dangelo MD Primary Care Provider Reason for Visit Reason Comments CONTACTS,INITIAL FIT VIA INTERFACE Encounter Details Date Type Department Care Team Description 04/16/2000 Office Visit [facility] Genaro Galvez, OD [place]; [address] [place] [address] Social History Tobacco Use Types Packs/Day Years Used Date Smoking Tobacco: Never Assessed Sex Assigned at Date Recorded Not on file documented as of this encounter Plan of Treatment Upcoming Encounters Date Type Specialty Care Team Description 07/07/2022 Appointment Optometry Los Vences ne, OD [address] [address] (Wo rk) documented as of this encounter Visit Diagnoses Diagnosis Myopia Astigmatism, unspecified documented in this encounter Care Teams Airfreight Operations Agent Relationship Specialty Start Date End Date Souleymane Dangelo MD PCP - General 12/27/99 11/27/10 [address] [place] [address] documented as of this encounter
--- OUTSIDE RECORDS SUMMARY | 2022-05-13 16:40 | XMS_ITS | Clinical Summary ---
:1955 Author Organization [facility] Address [address] [place] [address] Care Team Providers Name Role Phone Unavailable Primary Care Provider Unavailable Source Comments Patient records contain information from all sites at [facility]. For routine questions regarding patient records, call [phone] during business hours, M-F 8:00 AM - 5:00 PM Central Time. Record requests for emergency care only can be directed to [phone] at any time.[facility] Allergies No known active allergies Medications Medication Sig Dispensed Refills Start End Status Date Date aspirin 81 mg chewable Chew daily. 0 05/29/20 Active tablet 11 cetirizine (ZyrTEC) 5 Take by mouth 0 05/29/20 Active mg tablet daily. 11 multivitamin with Take by mouth 0 05/29/20 Active iron-mineral tablet daily. 11 PARoxetine (PAXIL) 10 Take 1 tablet 90 tablet 3 10/24/19 Active mg tablet (10 mg total) 21 by mouth daily. hydroCHLOROthiazide Take 1 90 capsule 3 01/16/20 Active (MICROZIDE) 12.5 mg capsule (12.5 22 capsuleIndications: mg total) by Hypertension And mouth daily. Chronic Kidney Disease Stage 1 To 4 simvastatin (ZOCOR) 20 TAKE 1 90 tablet 3 04/11/20 Active mg tabletIndications: TABLET(20 MG) 22 Hyperlipidemia BY MOUTH AT BEDTIME irbesartan (AVAPRO) 75 Take 1.5 135 tablet 3 05/05/20 Active mg tablet tablets 22 (112.5 mg total) by mouth daily. fluticasone propionate Administer 2 48 g 3 05/08/20 3/2 Active (FLONASE) 50 sprays into 22 022 mcg/actuation nasal each nostril spray daily. Shake well before use. fluticasone propionate Administer 2 16 g 11 09/18/1904/15 2/2 Discontinued (FLONASE) 50 sprays into 21 022 (Reor reji) mcg/actuation nasal each nostril spray daily. Shake well before use. irbesartan (AVAPRO) 75 TAKE 1 AND 135 tablet 1 08/15/2005/05 Discontinued mg tablet ONE-HALF 21 022 (Reorder) TABLETS BY MOUTH DAILY fluticasone propionate Administer 2 16 g 11 05/05/2004/15 2/2 Discontinued (FLONASE) 50 sprays into 22 022 (Reor reji) mcg/actuation nasal each nostril spray daily. Shake well before use. fluticasone propionate Administer 2 16 g 3 05/05/2004/15/ Discontinued (FLONASE) 50 sprays into 22 022 (Reor reji) mcg/actuation nasal each nostril spray daily. Shake well before use. Active Problems Problem Noted Date Rhinitis Allergic 01/17/2018 Chronic Kidney Disease Stage 1 Glomerular Filtration R ate Greater Than 90 11/02/2017 Hyperlipidemia 06/04/2011 Hypertension And Chronic Kidney Disease Stage 1 To 4 0 06/04/2011 Encounters Date Type Specialty Care Team Description 05/13/2022 Refill Nephrology and [place], Med Refill Hypertension Edward Ojeda Jr. D.O. 05/08/2022 Orders Only Nephrology and [place], Hypertension Edward Ojeda Jr. D.O. 05/05/2022 External Outreach Nephrology and [place], Hyperten mele And Chronic Kidney Disease Stage 1 To 4 (Primary Dx); Hypertension Edward Ojeda Jr., Chronic Kidney Disease Stage 1 Glomerular Filtration Rate Greater Than 90; D.O. Hyperlipidemia 05/05/2022 Orders Only Nephrology and [place], Hypertension Sachin Basilio Jr..O. 04/09/2022 Refill Nephrology and [place], Med Refill Hypertension Edward Ojeda Jr. D.O. from Last 3 Months Social History Tobacco Use Types Packs/Day Years Used Date Smoking Tobacco: Never Assessed Sex Assigned at Date Recorded Not on file Last Filed Vital Signs Vital Sign Reading Time Taken Comments Blood Pressure 123/70 05/05/2022 3:26 PM CDT Pulse 63 05/05/2022 3:26 PM CDT Temperature - - Respiratory Rate 16 11/05/2016 4:52 PM Vital sig n result WARP SPINNER from Clinical No gina. Oxygen Saturation - - Inhaled Oxygen - - Concentration Weight 74.4 kg (164 lb) 05/05/2022 3:26 PM CDT Height 167.6 cm (5' 6) 05/05/2022 3:26 PM CDT Body Mass Index 26.47 05/05/2022 3:26 PM CDT Plan of Treatment Health Maintenance Due Date Last Done Comments Bone Density Scan (Osteoporosis 1955 Screen) CT Colonography 1955 Cologuard 1955 Colonoscopy 1955 Colorectal Cancer Screening 1955 Creatinine Level 1955 FIT 1955 Fasting Glucose for Diabetes 1955 Screening Hepatitis C Screening 1955 Lipid (Cholesterol) Screening 1955 Mammogram 1955 Potassium Level 1955 Sodium Level 1955 Zoster Vaccines (3 of 3) 06/26/2020 05/01/2020, 10/29/2016 Depression Screening (Annual 09/14/2021 PHQ-2) Fall Risk Screen (Annual) 09/14/2021 Pneumococcal vaccine (65+ years) 03/05/2022 03/05/2021 (2 - PPSV23 or PCV20) Influenza Vaccine (#1) 2022 06/06/2021, 06/21/2020, 06/23/2019, Additional history exists DTaP,Tdap,and Td Vaccines (2 - Td 08/23/2022 08/23/2012, or Tdap) Office Visit for Blood Pressure 05/05/2023 05/05/2022 Check / Re-check COVID-19 Vaccine Completed 03/26/2022, 07/26/2021, 12/18/2020, Additional history exists Insurance Payer Benefit Plan Subscriber ID Effective Dates Phone Address Type / Group [employer] [place] [id number] 2016-Marichuy [phone] [address] [address] Merged with [facility] [address] [place] [address] Guarantor Name Account Type Relation to Date of Phone Billing Address Patient Amy Nicole Personal/Famil Self 1955 [address] ([address]) [address] [phone] [place] (Work) [id number]
--- OUTSIDE RECORDS SUMMARY | 2022-05-13 16:41 | XMS_ITS | Encounter Summary ---
:1955 Author Organization [facility] Address [address] [place] [address] Care Team Providers Name Role Phone Unavailable Primary Care Provider Unavailable Reason for Visit Reason Comments Med Refill Encounter Details Date Type Department Care Team Description 11/29/2019 Refill Division of Nephrology and Chalino, Farhan Ojeda Jr., Med Refill Hypertension in [facility] [address] [facility] [address] [place] [address] [place] [address] [phone] Social History Tobacco Use Types Packs/Day Years Used Date Smoking Tobacco: Never Assessed Sex Assigned at Date Recorded Not on file documented as of this encounter Plan of Treatment Not on filedocumented as of this encounter Visit Diagnoses Not on filedocumented in this encounter
--- OUTSIDE RECORDS SUMMARY | 2022-05-13 16:41 | XMS_ITS | Encounter Summary ---
:1955 Author Organization [facility] Address [address] [place] [address] Care Team Providers Name Role Phone Unavailable Primary Care Provider Unavailable Encounter Details Date Type Department Care Team Description 08/26/2020 Orders Only Pharmacy Prior Auth Mili Carroll [phone] Social History Tobacco Use Types Packs/Day Years Used Date Smoking Tobacco: Never Assessed Sex Assigned at Date Recorded Not on file documented as of this encounter Plan of Treatment Not on filedocumented as of this encounter Visit Diagnoses Not on filedocumented in this encounter
--- OUTSIDE RECORDS SUMMARY | 2022-05-13 16:41 | XMS_ITS | Encounter Summary ---
:1955 Author Organization [facility] Address [address] [place] [address] Care Team Providers Name Role Phone Unavailable Primary Care Provider Unavailable Reason for Visit Appointment Request (Routine) - Closed Specialty Diagnoses / Procedures Referred By Contact Refer red To Contact Nephrology and Hypertension Referral ID Status Reason Start Date Expiration Date Visits Requ ested Visits Authorized [id number] Closed 11/15/2018 11/15/2019 1 Encounter Details Date Type Department Care Team Description 11/23/2018 External Outreach Division of Lola Allred Disease Stage 1 Glomerular Filtration Rate Greater Than 90 (Primary Dx); Nephrology and Edward Ojeda Jr., Hyperlipidem ia; Hypertension in [place] Hypertension And Chronic Kidney Disease Stage 1 To 4 [place], [place] [address] [facility] [address] [place] [address] [phone] Social History Tobacco Use Types Packs/Day Years Used Date Smoking Tobacco: Never Assessed Sex Assigned at Date Recorded Not on file documented as of this encounter Progress Notes Edward Allred Jr., D.O. - 11/23/2018 2:30 PM CDT Please see scanned in documentation from [facility] [place] outreach visit from this date documented in this encounter Plan of Treatment Not on filedocumented as of this encounter Visit Diagnoses Diagnosis Chronic Kidney Disease Stage 1 Glomerula r Filtration Rate Greater Than 90 - Primary Hyperlipidemia Hypertension And Chronic Kidney Disease Stage 1 To 4 documented in this encounter
--- OUTSIDE RECORDS SUMMARY | 2022-05-13 16:41 | XMS_ITS | Encounter Summary ---
:1955 Author Organization [facility] Address [address] [place] [address] Care Team Providers Name Role Phone Unavailable Primary Care Provider Unavailable Reason for Visit Appointment Request (Routine) - Closed Specialty Diagnoses / Procedures Referred By Contact Refer red To Contact Nephrology and Hypertension Referral ID Status Reason Start Date Expiration Date Visits Requ ested Visits Authorized [id number] Closed 08/29/2020 08/29/2021 1 1 Encounter Details Date Type Department Care Team Description 09/18/2020 External Outreach Division of Lola Allredey Disease Stage 1 Glomerular Filtration Rate Greater Than 90 (Primary Dx); Nephrology and Edward Ojeda Jr., Hypertension And Chronic Kidney Disease Stage 1 To 4; Hypertension in [place]. Hyperlipidemia [place], [place] [address] [facility] [address] [place] [phone] [phone] Social History Tobacco Use Types Packs/Day Years Used Date Smoking Tobacco: Never Assessed Sex Assigned at Date Recorded Not on file documented as of this encounter Progress Notes Edward Allred Jr., D.O. - 09/18/2020 4:00 PM CST Please see scanned in note under document viewer tab for the [facility] outreach visit from this date. HAND documented in this encounter Plan of Treatment Not on filedocumented as of this encounter Visit Diagnoses Diagnosis Chronic Kidney Disease Stage 1 Glomerula r Filtration Rate Greater Than 90 - Primary Hypertension And Chronic Kidney Disease Stage 1 To 4 Hyperlipidemia documented in this encounter
--- OUTSIDE RECORDS SUMMARY | 2022-05-13 16:41 | XMS_ITS | Encounter Summary ---
:1955 Author Organization [facility] Address [address] [place] [address] Care Team Providers Name Role Phone Unavailable Primary Care Provider Unavailable Encounter Details Date Type Department Care Team Description 08/20/2020 Orders Only [facility] - Eleanor Carnes [address] [facility] [place] [phone] Social History Tobacco Use Types Packs/Day Years Used Date Smoking Tobacco: Never Assessed Sex Assigned at Date Recorded Not on file documented as of this encounter Plan of Treatment Not on filedocumented as of this encounter Visit Diagnoses Not on filedocumented in this encounter
--- OUTSIDE RECORDS SUMMARY | 2022-05-13 16:41 | XMS_ITS | Encounter Summary ---
:1955 Author Organization [facility] Address [address] [place] [address] Care Team Providers Name Role Phone Unavailable Primary Care Provider Unavailable Encounter Details Date Type Department Care Team Description 08/17/2020 Documentation Division of Nephrology and Chan Allred Hypertension in [place], , [place] [address] [facility] [address] [place] [address] [phone] (Wo rk) Social History Tobacco Use Types Packs/Day Years Used Date Smoking Tobacco: Never Assessed Sex Assigned at Date Recorded Not on file documented as of this encounter Progress Notes Edward Allred Jr., D.O. - 08/17/2020 3:01 PM CST Care coordination note Received an e-mail from her, her blood pressures been running quite elevated recently, she has not been exercising as much, she has gained some weight, and notes blood pressures at home often in the 170s over 80s range. I am going to ask her to take 1/2 of her irbesartan tablets daily in addition to her diuretic. She is getting back to her exercise. Unfortunately she just lost her sister to COVID, I expressed my condolences. Some of her stress could also be contributing to the elevated blood pressure as well. LLITE TV TECHNICIAN INSTALLER documented in this encounter Plan of Treatment Not on filedocumented as of this encounter Visit Diagnoses Not on filedocumented in this encounter
--- OUTSIDE RECORDS SUMMARY | 2022-05-13 16:41 | XMS_ITS | Encounter Summary ---
:1955 Author Organization [facility] Address [address] [place] [address] Care Team Providers Name Role Phone Unavailable Primary Care Provider Unavailable Encounter Details Date Type Department Care Team Description 01/17/2018 Clinical Communication Division of Nephrology Edward Allred and Hypertension in [place], [place] [address] [facility] [address] [place] [address] [phone] Social History Tobacco Use Types Packs/Day Years Used Date Smoking Tobacco: Never Assessed Sex Assigned at Date Recorded Not on file documented as of this encounter Plan of Treatment Not on filedocumented as of this encounter Visit Diagnoses Not on filedocumented in this encounter
--- OUTSIDE RECORDS SUMMARY | 2022-05-13 16:41 | XMS_ITS | Encounter Summary ---
:1955 Author Organization [facility] Address [address] [place] [address] Care Team Providers Name Role Phone Unavailable Primary Care Provider Unavailable Encounter Details Date Type Department Care Team Description 01/16/2018 Orders Only Division of Nephrology and Farhan Allred Hypertension in [place], Leni, D.O. [place] [address] [facility] [address] [place] [address] [phone] (Wo rk) Social History Tobacco Use Types Packs/Day Years Used Date Smoking Tobacco: Never Assessed Sex Assigned at Date Recorded Not on file documented as of this encounter Plan of Treatment Not on filedocumented as of this encounter Visit Diagnoses Not on filedocumented in this encounter
--- OUTSIDE RECORDS SUMMARY | 2022-05-13 16:41 | XMS_ITS | Encounter Summary ---
:1955 Author Organization [facility] Address [address] [place] [address] Care Team Providers Name Role Phone Unavailable Primary Care Provider Unavailable Reason for Visit Reason Comments Med Refill Encounter Details Date Type Department Care Team Description 10/22/2020 Refill Division of Nephrology and Chalino, Farhan Ojeda Jr., Med Refill Hypertension in [facility] [place] [address] [facility] [address] [place] [address] [place] [address] [phone] Social History Tobacco Use Types Packs/Day Years Used Date Smoking Tobacco: Never Assessed Sex Assigned at Date Recorded Not on file documented as of this encounter Miscellaneous Notes Telephone Encounter - Georgina Parikh - 10/22/2020 1:48 PM CST Med refill request for Paroxetine 10 MG tab. Forwarded to nurses. RA TECHNICIAN documented in this encounter Plan of Treatment Not on filedocumented as of this encounter Visit Diagnoses Not on filedocumented in this encounter
--- OUTSIDE RECORDS SUMMARY | 2022-05-13 16:41 | XMS_ITS | Encounter Summary ---
:1955 Author Organization [facility] Address [address] [place] [address] Care Team Providers Name Role Phone Unavailable Primary Care Provider Unavailable Reason for Visit Appointment Request (Routine) - Closed Specialty Diagnoses / Procedures Referred By Contact Refer red To Contact Nephrology and Hypertension Referral ID Status Reason Start Date Expiration Date Visits Requ ested Visits Authorized [id number] Closed 11/16/2019 11/15/2020 1 1 Encounter Details Date Type Department Care Team Description 11/24/2019 External Outreach Division of Lola Allredey Disease Stage 1 Glomerular Filtration Rate Greater Than 90 (Primary Dx); Nephrology and Edward Ojeda Jr., Hypertension And Chronic Kidney Disease Stage 1 To 4; Hypertension in [place] Hyperlipidemia [place], [place] [address] [facility] [address] [place] [address] [phone] Social History Tobacco Use Types Packs/Day Years Used Date Smoking Tobacco: Never Assessed Sex Assigned at Date Recorded Not on file documented as of this encounter Progress Notes Edward Allred Jr., D.O. - 11/24/2019 2:30 PM CDT Please see scanned in note under document viewer tab for the [facility] [place] outreach visit from this date. documented in this encounter Plan of Treatment Not on filedocumented as of this encounter Visit Diagnoses Diagnosis Chronic Kidney Disease Stage 1 Glomerula r Filtration Rate Greater Than 90 - Primary Hypertension And Chronic Kidney Disease Stage 1 To 4 Hyperlipidemia documented in this encounter
--- OUTSIDE RECORDS SUMMARY | 2022-05-13 16:41 | XMS_ITS | Encounter Summary ---
:1955 Author Organization [facility] Address [address] [place] [address] Care Team Providers Name Role Phone Unavailable Primary Care Provider Unavailable Reason for Visit Reason Comments Med Refill Encounter Details Date Type Department Care Team Description 12/23/2019 Refill Division of Nephrology and Chalino, Farhan Ojeda Jr., Med Refill Hypertension in [facility] [address] [facility] [address] [place] [address] [place] [address] [phone] Social History Tobacco Use Types Packs/Day Years Used Date Smoking Tobacco: Never Assessed Sex Assigned at Date Recorded Not on file documented as of this encounter Plan of Treatment Not on filedocumented as of this encounter Visit Diagnoses Diagnosis Hyperlipidemia - Primary documented in this encounter
--- OUTSIDE RECORDS SUMMARY | 2022-05-13 16:41 | XMS_ITS | Encounter Summary ---
:1955 Author Organization [facility] Address [address] [place] [address] Care Team Providers Name Role Phone Unavailable Primary Care Provider Unavailable Reason for Visit Reason Comments Rx Prior Authorization Encounter Details Date Type Department Care Team Description 08/20/2020 Clinical Division of Chalino, Rx Prior Communication Nephrology and Edward Ojeda Jr., Authorizati on Hypertension in [place], [place] [address] [facility] [address] [place] [address] [phone] Social History Tobacco Use Types Packs/Day Years Used Date Smoking Tobacco: Never Assessed Sex Assigned at Date Recorded Not on file documented as of this encounter Miscellaneous Notes Telephone Encounter - Georgina Parikh - 08/20/2020 10:38 AM CST Faxed Prior Authorization Request for??Irbesartan 75 MG tab to [facility] [phone]. Any questions please contact Prior Auth Team at [phone] [facility]. LOOP MAKER documented in this encounter Plan of Treatment Not on filedocumented as of this encounter Visit Diagnoses Not on filedocumented in this encounter
--- OUTSIDE RECORDS SUMMARY | 2022-05-13 16:41 | XMS_ITS | Encounter Summary ---
:1955 Author Organization [facility] Address [address] [place] [address] Care Team Providers Name Role Phone Unavailable Primary Care Provider Unavailable Reason for Visit Reason Comments Med Refill Encounter Details Date Type Department Care Team Description 11/21/2020 Refill Division of Nephrology and Chalino, Farhan Ojeda Jr., Med Refill Hypertension in [facility] [address] [facility] [address] [place] [address] [place] [address] [phone] Social History Tobacco Use Types Packs/Day Years Used Date Smoking Tobacco: Never Assessed Sex Assigned at Date Recorded Not on file documented as of this encounter Miscellaneous Notes Telephone Encounter - Kerri Choi R.N. - 11/22/2020 1:57 PM LIFE UNDERWRITER Fax received from pharmacy requesting refill on hydrochlorothiazide 12.5 mg tablet daily. Mrs. Nicole was last seen by Dr. Allred at [facility] on 09/18/2020. UNDERWRITER Telephone Encounter - Georgina Parikh - 11/21/2020 9:52 AM CST Med refill request for Hydrochlorothiazide 12.5 mg caps. Forwarded to nurses. UNDERWRITER documented in this encounter Plan of Treatment Not on filedocumented as of this encounter Visit Diagnoses Diagnosis Hypertension And Chronic Kidney Disease Stage 1 To 4 - Primary documented in this encounter
--- OUTSIDE RECORDS SUMMARY | 2022-05-13 16:41 | XMS_ITS | Encounter Summary ---
:1955 Author Organization [facility] Address [address] [place] [address] Care Team Providers Name Role Phone Unavailable Primary Care Provider Unavailable Encounter Details Date Type Department Care Team Description 08/17/2020 Orders Only Division of Nephrology and Farhan Allred Hypertension in [place], Leni, D.O. [place] [address] [facility] [address] [place] [address] [phone] (Wo rk) Social History Tobacco Use Types Packs/Day Years Used Date Smoking Tobacco: Never Assessed Sex Assigned at Date Recorded Not on file documented as of this encounter Plan of Treatment Not on filedocumented as of this encounter Visit Diagnoses Not on filedocumented in this encounter
--- OUTSIDE RECORDS SUMMARY | 2022-05-13 16:41 | XMS_ITS | Encounter Summary ---
:1955 Author Organization [facility] Address [address] [place] [address] Care Team Providers Name Role Phone Unavailable Primary Care Provider Unavailable Encounter Details Date Type Department Care Team Description 09/18/2020 Orders Only Division of Nephrology and Farhan Allred Hypertension in [place], ., D.O. [place] 200 [facility] [address] [place] [address] [phone] (Wo rk) Social History Tobacco Use Types Packs/Day Years Used Date Smoking Tobacco: Never Assessed Sex Assigned at Date Recorded Not on file documented as of this encounter Plan of Treatment Not on filedocumented as of this encounter Visit Diagnoses Not on filedocumented in this encounter
--- OUTSIDE RECORDS SUMMARY | 2022-05-13 16:41 | XMS_ITS | Encounter Summary ---
:1955 Author Organization [facility] Address [address] [place] [address] Care Team Providers Name Role Phone Unavailable Primary Care Provider Unavailable Reason for Visit Reason Comments Med Refill Encounter Details Date Type Department Care Team Description 11/11/2019 Refill Division of Nephrology and Chalino, Farhan Ojeda Jr., Med Refill Hypertension in [facility] [address] [facility] [address] [place] [address] [place] [address] [phone] Social History Tobacco Use Types Packs/Day Years Used Date Smoking Tobacco: Never Assessed Sex Assigned at Date Recorded Not on file documented as of this encounter Plan of Treatment Not on filedocumented as of this encounter Visit Diagnoses Not on filedocumented in this encounter
--- NOTE | 2022-05-13 16:45 | CRLHL7_ITS ---
For Patients: As a result of the Century Cures Act, medical imaging exams and procedure reports are released immediately into your electronic medical record. You may view this report before your referring provider. If you have questions, please contact your health care provider. BILATERAL SCREENING MAMMOGRAM WITH COMPUTER-AIDED DETECTION AND TOMOSYNTHESIS TECHNIQUE: CC and MLO views were obtained. These mammographic images have been obtained using full-field digital technique. These mammographic images were interpreted with the benefit of computer-aided detection. Breast Tomosynthesis was used in this interpretation. COMPARISON FILM: 11/26/20, 03/29/19, 10/13/17 FINDINGS: There are scattered areas of fibroglandular density IMPRESSION: There is no radiographic evidence for malignancy. ASSESSMENT: BI-RADS Category 1: Negative RECOMMENDATION: Routine screening mammogram in 1 year. A lay language report of this examination will be provided to the patient. Alexis Fitzpatrick M.D. Diagnostic/Musculoskeletal Radiologist [email or web address] Transcribed: 1:59 p.m. PT/Dictated by: Alexis Fitzpatrick MD @ 05/14/2022 8:24:00 AM (Electronically Signed)
== END 2022-05-13 16:32 | disposition home or self-care (01) ==
LOC: MAMMO 16:31
PROVIDERS: PCP Internal Medicine; Visit Provider Internal Medicine
DX: Z12.31 Encounter for screening mammogram for malignant neoplasm of breast (principal)
CPT/HCPCS: 77063; 77067

== ENCOUNTER 2023-04-30 10:12 | Outpatient (CLI) | payer MEDICARE, BC, SELFPAY | END 2023-04-30 10:13 | disposition home or self-care (01) | PROVIDERS: PCP Internal Medicine; Visit Provider Internal Medicine | DX: Z00.00 Encounter for general adult medical examination without abnormal findings (principal); R73.03 Prediabetes; E78.5 Hyperlipidemia, unspecified; N18.1 Chronic kidney disease, stage 1; F41.9 Anxiety disorder, unspecified; I12.9 Hypertensive chronic kidney disease with stage 1 through stage 4 chronic kidney disease, or unspecified chronic kidney disease | CPT/HCPCS: 80053; 80061; 82043; 82570 ==

== ENCOUNTER 2024-05-02 08:13 | Outpatient (CLI) | payer MEDICARE, BC, SELFPAY ==
--- OUTSIDE RECORDS SUMMARY | 2024-05-02 14:58 | XMS_ITS ---
Author Organization [facility] Address [address] [place] [address] Care Team Providers Care Calender Feeder Name Role Phone Unavailable Unavailable Unavailable Surgery Details Not on file Complications Check Surgery Details section. Procedure Estimated Blood Loss Check Surgery Details section. Procedure Findings Check Surgery Details section. Procedure Specimens Taken Check Surgery Details section.
--- OUTSIDE RECORDS SUMMARY | 2024-05-02 14:58 | XMS_ITS | Referral Summary ---
Author Organization [facility] Address [address] [place] [address] Care Team Providers Care Repairer General Name Role Phone None Reported, Pcp Primary Care Provider Unavail able Source Comments Patient records contain information from all sites at [facility]. For routine questions regarding patient records, call [phone] during business hours, M-F 8:00 AM - 5:00 PM Central Time. Record requests for emergency care only can be directed to [phone] at any time.[facility] Allergies No known active allergies Medications Medication Sig Dispensed Refills Start Date End Date Status aspirin 81 mg chewable tablet Chew daily. 05/29/2011 Active cetirizine (ZyrTEC) 5 mg tablet Take by mouth daily. 05/29/2011 Active multivitamin with iron-mineral tablet Take by mouth daily. 05/29/2011 Active PARoxetine (PAXIL) 10 mg tablet Take 1 tablet (10 mg total) by mouth daily. 90 tablet 3 10/24/2020 Active hydroCHLOROthiazide (MICROZIDE) 12.5 mg capsuleIndications: Hypertensive Chronic Kidney Disease With Stage 1 Through Stage 4 Chronic Kidney Disease, Or Unspecified Chronic Kidney Disease Take 1 capsule (12.5 mg total) by mouth daily. 90 capsule 3 01/15/2022 Active simvastatin (ZOCOR) 20 mg tabletIndications:H yperlipidemia TAKE 1 TABLET(20 MG) BY MOUTH AT BEDTIME 90 tablet 3 04/11/2022 Active irbesartan (AVAPRO) 75 mg tablet Take 1.5 tablets (112.5 mg total) by mouth daily. 135 tablet 3 05/05/2022 Active fluticasone propionate (FLONASE) 50 mcg/actuation nasal spray Administer 2 sprays into each nostril daily. Shake well before use. 48 g 3 05/08/2022 Active Active Problems Problem Noted Date Diagnosed Date Rhinitis Allergic 01/17/2018 Chronic Kidney Disease Stage 1 Glomerular Filtration Rate Greater Than 90 11/02/2017 Hyperlipidemia 06/04/2011 Hypertensive Chronic Kidney Disease With Stage 1 Through Stage 4 Chronic Kidney Disease, Or Unspecified Chronic Kidney Disease 06/04/2011 Immunizations Name Administration Dates Next Due Tdap 01/29/2023 Social History Tobacco Use Types Packs/Day Years Used Date Smoking Tobacco: Never Smokeless Tobacco: Never Tobacco Cessation:Counseling Given: Not Answered Alcohol Use Standard Drinks/Week Comments Yes 0 (1 standard drink = 0.6 oz pur e alcohol) occassionaly Nutrition Answer Date Recorded Nutrition: EVOO Fat Source Unknown 11/12 Nutrition: Servings of Fruits/Vegetables per Day Not on file 11/12/2020 Dental Answer Date Recorded Dental: Regular Dentist Unknown 11/13/19 Sex and Gender Information Value Date Recorded Sex Assigned at Not on file Gender Identity Not on file Sexual Orientation Not on file Last Filed Vital Signs Vital Sign Reading Time Taken Comments Blood Pressure 175/80 01/29/2023 3:13 PM CDT Pulse 74 01/29/2023 3:13 PM CDT Temperature 37.2 ??C (98.9 ??F) 01/29/2023 3:13 PM CD T Respiratory Rate 16 01/29/2023 3:13 PM CDT Oxygen Saturation 97% 01/29/2023 3:13 PM CDT Inhaled Oxygen Concentration - - Weight 74.4 kg (164 lb) 01/29/2023 3:16 PM CDT Height 170.2 cm (5' 7) 07/20/2022 2:12 PM VOICE SYSTEMS ENGINEER Body Mass Index 25.69 07/20/2022 2:12 PM VOICE SYSTEMS ENGINEER Plan of Treatment Not on file Procedures Procedure Name Priority Date/Time Associated Diagnosis Comments BI BREAST SCREENING BILATERAL WITH TOMOSYNTHESIS RAD - Routine (most inpatients and all outpatients) 09/08/2023 9:44 AM VOICE SYSTEMS ENGINEER Screening Mammogram High Risk Patient from Last 3 Months or Most Recently Relevant to Health Maintenance Results * BI Breast Screening Bilateral with Tomosynthesis (09/08/2023 9:44 AM VOICE SYSTEMS ENGINEER) Anatomical Region Laterality Modality Breast, Breast Imaging RST L OS, Breast Imaging ARZ LOS, Breast Imaging FLA LOS Bilateral Mammography Impressions 09/08/2023 12:25 PM VOICE SYSTEMS ENGINEER Negative. RECOMMENDATION: ??Annual Screening Mammogram ASSESSMENT: ??BI-RADS: 1: Negative. Narrative 09/08/2023 12:25 PM VOICE SYSTEMS ENGINEER EXAM: ??BI BREAST SCREENING BILATERAL WITH TOMOSYNTHESIS Current study was evaluated with a Computer Aided Detection (CAD) system. INDICATION: ??Screening mammogram. COMPARISON: ??Prior exam(s) were available and reviewed for comparison. DENSITY: ??c. The breast(s) are heterogeneously dense, which may obscure small masses. FINDINGS: ??No mammographic findings of malignancy. Procedure Note Rossana Mahajan D.O. - 09/08/2023 EXAM: BI BREAST SCREENING BILATERAL WITH TOMOSYNTHESIS Current study was evaluated with a Computer Aided Detection (CAD) system. INDICATION: Screening mammogram. COMPARISON: Prior exam(s) were available and reviewed for comparison. DENSITY: c. The breast(s) are heterogeneously dense, which may obscuresmall masses. FINDINGS: No mammographic findings of malignancy. IMPRESSION: Negative. RECOMMENDATION: Annual Screening Mammogram ASSESSMENT: BI-RADS: 1: Negative. Sera WALTON BI PROCEDURE S from Last 3 Months or Most Recently Relevant to Health Maintenance Care Teams Repairer General Relationship Specialty Start Date End Date None Reported, Pcp PCP - General Family Medicine 07/20/22
--- OUTSIDE RECORDS SUMMARY | 2024-05-02 14:58 | XMS_ITS | Clinical Summary ---
Author Organization [facility] Address [address] [place] [address] Care Team Providers Care Naval Designer Name Role Phone Sera Son MD Primary Care Provider +1- [phone] Source Comments You are receiving this document as you are listed as the primary care provider,follow-up provider, or the patient has been referred to you for consultation.This is in compliance with the Medicare and[facility] EHR Incentive Program,which states Providers who transition their patient to another setting of careor provider of care or refers their patient to another provider of care shouldprovide summary care record for each transition of care or referral. [employer] Allergies No known active allergies Medications Medication Sig Dispensed Refills Start Date End Date Status MULTIPLE VITAMIN TABS OR 1 tab qd 0 01/30/2003 Active ZYRTEC 10 MG OR TABSIndications:Devyn rgic rhinitis, cause unspecified One by mouth every day 15 0 10/07/2006 Active Additional Information Patient not taking.Reported on 01/08/2024 ASPIRIN 81 MG OR CHEW Take one tablet by mouth every day. Active simvastatin (AKA ZOCOR) 20 MG tablet Take 1 Tablet (20 mg) by mouth daily at bedtime. Active losartan (AKA COZAAR) 50 MG tablet Take 50 mg by mouth daily. Active irbesartan (AKA AVAPRO) 75 MG tablet Take 1 Tablet (75 mg) by mouth every evening. Active Cetirizine HCl (ZYRTEC OR) Active Multiple Vitamins-Calcium (ONE-A-DAY WOMENS FORMULA OR) Active omega-3 fatty acids (FISH OIL) 1000 MG capsule Take 2 g by mouth daily. Active Artificial Tear (TEARS AGAIN NIGHT & DAY) 2-0.1 % Active BUSPIRONE HCL OR Active PARoxetine (AKA PAXIL) 20 MG tablet 0 12/14/2015 Activ e fluticasone (AKA FLONASE) 50 MCG/ACT nasal solution 11 11/02/2015 Active hydrochlorothiazide 12.5 MG capsule 2 11/02/2015 Active Active Problems No known active problems Immunizations Name Administration Dates Next Due Flu Vac (3+ yrs) 07/08/2006 Influenza, Unspecified Formulation 06/14/2008, Td 02/12/2002 Family History Medical History Relation Name Comments Coronary Artery Disease Father othe r relatives as well. - dad 1st [place] age 38 Other Father idiopathic inte rstitial fibrosis (lung)- 4 siblings also have or of it. Cataract Mother Hypertension Mother Thyroid Disorder Mother hypothyroid , also aunt Cancer, Breast Other mat. aunt Cancer, Colon Other GM Glaucoma Negative Family History Macular Degeneration Negative Family History Relation Name Status Comments Father Mother Other Social History Tobacco Use Types Packs/Day Years Used Date Smoking Tobacco: Never Smokeless Tobacco: Never Alcohol Use Standard Drinks/Week Comments Not Asked 0 (1 standard drink = 0.6 oz pur e alcohol) 1-2 drinks rarely Sex and Gender Information Value Date Recorded Sex Assigned at Not on file Gender Identity Not on file Sexual Orientation Not on file Last Filed Vital Signs Vital Sign Reading Time Taken Comments Blood Pressure 110/68 10/23/2008 11:33 AM REJECTED ITEMS CLERK Pulse 76 10/23/2008 11:33 AM REJECTED ITEMS CLERK Temperature 36.7 ??C (98.1 ??F) 10/23/2008 11:33 AM C Respiratory Rate 12 10/23/2008 11:33 AM REJECTED ITEMS CLERK Oxygen Saturation - - Inhaled Oxygen Concentration - - Weight 74.4 kg (164 lb) 10/23/2008 11:33 AM REJECTED ITEMS CLERK Height 168.9 cm (5' 6.5) 04/12/2008 11:14 AM CD T Body Mass Index 26.07 04/12/2008 11:14 AM CDT Plan of Treatment Upcoming Encounters Date Type Department Care Team (Late st Contact Info) Description 01/11/2025 9:30 AM CDT Appointment [facility] [address] [place] [address] Sera Vences, OD [address] [place], [place] [phone] Health Maintenance Due Date Last Done Comments Colonoscopy 1955 Hep C Screening (Preventive Services) 1955 Medicare Annual Wellness Visit 1955 Cholesterol 07/16/2011 07/16/2006, 03/23/2001 Mammogram 07/15/2013 07/15/2012, 06/15, 07/04/2010, Additional history exists Zoster/Shingles (3 of 3) 06/26/2020 05/01/2020, 10/15 Dexa 01/18/2021 DTaP/Tdap/Td (2 - Tdap) 08/23/2022 08/23/2012, 02/12 COVID-19 Vaccine ( season) 2023 06/11/2022, 03/26/2022, 07/26/2021, Additional history exists Influenza (#1) 2024 06/11/2022, 05/16, 06/21/2020, Additional history exists Pneumococcal 65+ Yrs Completed 05/05/2022, 03/05/20 21 HepA Aged Out No longer eligi ble based on patient's age to complete this topic HepB Aged Out No longer eligi ble based on patient's age to complete this topic Hib Aged Out No longer eligi ble based on patient's age to complete this topic IPV (Polio) Aged Out No longer eligi ble based on patient's age to complete this topic MCV4 Aged Out No longer eligi ble based on patient's age to complete this topic Procedures Procedure Name Priority Date/Time Associated Diagnosis Comments MM MAMMOGRAM SCREENING BILAT W CAD Routine 07/15/2012 5:51 PM CDT LIPID PANEL, FAST > 12 HOUR Routine 07/16/2006 7:54 AM REJECTED ITEMS CLERK Screening for Lipoid Disorders from Last 3 Months or Most Recently Relevant to Health Maintenance Results * MAMMOGRAM SCREENING BILATERAL (07/15/2012 5:51 PM CDT) Anatomical Region Laterality Modality Breast Bilateral Mammography Narrative 07/16/2012 3:17 PM CDT BILATERAL FULL FIELD DIGITAL SCREENING MAMMOGRAM Performed on 07/15/2012 Comparison: MAMMOGRAM SCREENING W/CAD BILAT 07/08/11, MAMMOGRAM SCREENING W/CAD BILAT 07/04/10 and MAMMOGRAM DIAGNOSTIC BILATERAL 06/28/09. Findings: The breasts have scattered fibroglandular densities. There is no radiographic evidence of malignancy.This study was evaluated with the assistance of Computer-Aided Detection. ??Repeat routine screening mammogram in one year is recommended. ACR BI-RADS Category 1: Negative Procedure Note Luis Ortez MD - 07/16/2012 BILATERAL FULL FIELD DIGITAL SCREENING MAMMOGRAM Performed on 07/15/2012 Comparison: MAMMOGRAM SCREENING W/CAD BILAT 07/08/11, MAMMOGRAM SCREENINGW/CAD BILAT 07/04/10 and MAMMOGRAM DIAGNOSTIC BILATERAL 06/28/09. Findings: The breasts have scattered fibroglandular densities. There is noradiographic evidence of malignancy.This study was evaluated with theassistance of Computer-Aided Detection. Repeat routine screeningmammogram in one year is recommended. ACR BI-RADS Category 1: Negative Sera Son MD [facility] [place] * (ABNORMAL) CHOLESTEROL LIPID PANEL FAST >12HR (07/16/2006 7:54 AM REJECTED ITEMS CLERK) Cholesterol 224(H) <200 mg/dl [facility] Comment: Result should not be interpreted without the patient's history of cardiovascular risk factors. Triglyceride 130 <200 mg/dl [facility] HDL 52 >35 mg/dl [facility] LDL, Calc. 146 mg/dl [facility] Hours Fasting 12 hours [facility] 07/16/2006 7:54 AM REJECTED ITEMS CLERK 07/16/2006 7:55 AM REJECTED ITEMS CLERK Souleymane Dangelo MD LAB_1 [facility] [address] [place] [phone] from Last 3 Months or Most Recently Relevant to Health Maintenance Care Teams Naval Designer Relationship Specialty Start Date End Date Sera Son MD [address] [place] [address] PCP - General Internal Medicine 11/28/10
--- OUTSIDE RECORDS SUMMARY | 2024-05-02 14:58 | XMS_ITS | Clinical Summary ---
Author Organization [facility] Address [address] [place] [address] Care Team Providers Care Envelope Adjuster Name Role Phone None Reported, Pcp Primary Care Provider Unavail able Source Comments Patient records contain information from all sites at [facility]. For routine questions regarding patient records, call [phone] during business hours, M-F 8:00 AM - 5:00 PM Central Time. Record requests for emergency care only can be directed to [phone] at any time.[facility] Allergies No known active allergies Medications [...] 170.2 cm (5' 7) 07/20/2022 2:12 PM COMMUNICATIONS DEPARTMENT CHAIR Body Mass Index 25.69 07/20/2022 2:12 PM COMMUNICATIONS DEPARTMENT CHAIR Plan of Treatment Health Maintenance Due Date Last Done Comments Bone Density Scan (Osteoporo sis Screen) 1956 CT Colonography 1955 Cologuard 1955 Colonoscopy 1955 Colorectal Cancer Screening 1955 Creatinine Level (Kidney Fun ction Test) 1956 FIT 1956 Fasting Glucose for Diabetes Screening 1955 Hepatitis C Screening 1955 Lipid (Cholesterol) Screening 1955 Potassium Level 1955 Sodium Level 1955 Visit: Chronic Disease, age 18+ 1955 Visit: Medicare Annual Wellness 1955 Zoster Vaccines (3 of 3) 06/26/2020 05/01/2020, 10/15 Office Visit for Blood Press ure Check / Re-check 05/05/2023 05/05/2022 Depression Screening (Annual PHQ-2) 09/14/2023 Fall Risk Screen (Annual) 09/14/2023 COVID-19 Vaccine (2022- 4 season) 2023 06/13/2023, 06/11/2022, 03/26/2022, Additional history exists Influenza Vaccine (#1) 2024 , 06/11/2022, 06/06/2021, Additional history exists Mammogram 09/08/2024 09/08/2023, 04/16, 11/26/2020, Additional history exists DTaP,Tdap,and Td Vaccines (3 - Td or Tdap) 01/29/2033 01/29/2023, 08/23/2012, 02/12/2002 Cervical Cancer Screening Discontinued 02/09/2018 Pneumococcal vaccine (65+ years) Completed 05/05/20, 03/05/2021 Procedures Procedure Name Priority Date/Time Associated Diagnosis Comments BI BREAST SCREENING BILATERAL WITH TOMOSYNTHESIS RAD - Routine (most inpatients and all outpatients) 09/08/2023 9:44 AM COMMUNICATIONS DEPARTMENT CHAIR Screening Mammogram High Risk Patient from Last 3 Months or Most Recently Relevant to Health Maintenance Results * BI Breast Screening Bilateral with Tomosynthesis (09/08/2023 9:44 AM COMMUNICATIONS DEPARTMENT CHAIR) Anatomical Region Laterality Modality Breast, Breast Imaging RST L OS, Breast Imaging ARZ LOS, Breast Imaging FLA LOS Bilateral Mammography Impressions 09/08/2023 12:25 PM COMMUNICATIONS DEPARTMENT CHAIR Negative. RECOMMENDATION: ??Annual Screening Mammogram ASSESSMENT: ??BI-RADS: 1: Negative. Narrative 09/08/2023 12:25 PM COMMUNICATIONS DEPARTMENT CHAIR EXAM: ??BI BREAST SCREENING BILATERAL WITH TOMOSYNTHESIS [...] Screening Mammogram ASSESSMENT: BI-RADS: 1: Negative. Sera Son M.D. IMG BI PROCEDURE S from Last 3 Months or Most Recently Relevant to Health Maintenance Care Teams Envelope Adjuster Relationship Specialty Start Date End Date None Reported, Pcp PCP - General Family Medicine 07/20/22
--- OUTSIDE RECORDS SUMMARY | 2024-05-02 14:58 | XMS_ITS | Encounter Summary ---
Author Organization [facility] Address [address] [place] [address] Care Team Providers Care Manager Organizational Name Role Phone Sera Son MD Primary Care Provider +1- [phone] Encounter Details Date Type Department Care Team (Latest Contact Info) Description 11/29/1998 Orders Only oSuleymane Dangelo Social History Tobacco Use Types Packs/Day Years Used Date Smoking Tobacco: Never Assessed Sex and Gender Information Value Date Recorded Sex Assigned at Not on file Gender Identity Not on file Sexual Orientation Not on file documented as of this encounter Plan of Treatment Upcoming Encounters Date Type Department Care Team (Late st Contact Info) Description 01/11/2025 9:30 AM CDT Appointment [facility] [address] [facility] [place], [place] [phone] Sera Vences OD [address] [place] [address] documented as of this encounter Visit Diagnoses Not on filedocumented in this encounter Care Teams Manager Organizational Relationship Specialty Start Date End Date Sera Son MD [address] [place] [address] PCP - General Internal Medicine 11/28/10 documented as of this encounter
--- OUTSIDE RECORDS SUMMARY | 2024-05-02 14:58 | XMS_ITS | Encounter Summary ---
Author Organization [facility] Address [address] [place] [address] Care Team Providers Care Director Software Name Role Phone Sera Son MD Primary Care Provider +1- [phone] Encounter Details Date Type Department Care Team (Latest Contact Info) Description 01/08/2000 Orders Only Souleymane Dangelo MD [address] [place] [id number] Social History Tobacco Use Types Packs/Day Years Used Date Smoking Tobacco: Never Assessed Sex and Gender Information Value Date Recorded Sex Assigned at Not on file Gender Identity Not on file Sexual Orientation Not on file documented as of this encounter Plan of Treatment Upcoming Encounters Date Type Department Care Team (Late st Contact Info) Description 01/11/2025 9:30 AM CDT Appointment [facility] [address] [facility] [place], [place] [phone] Sera Vences, REYNOLD [address] [place], [place] [phone] documented as of this encounter Visit Diagnoses Not on filedocumented in this encounter Care Teams Director Software Relationship Specialty Start Date End Date Sera Son MD [address] [place] [address] PCP - General Internal Medicine 11/28/10 documented as of this encounter
--- OUTSIDE RECORDS SUMMARY | 2024-05-02 14:58 | XMS_ITS | Encounter Summary ---
Author Organization [facility] Address [address] [place] [address] Care Team Providers Care Steward/Stewardess Chief Cargo Vessel Name Role Phone Sera Son MD Primary Care Provider +1- [phone] Encounter Details Date Type Department Care Team (Latest Contact Info) Description 10/27/1998 Orders Only Kendall Whitten Social [...] Info) Description 01/11/2025 9:30 AM CDT Appointment [facility] [address] [facility]. [place], [place] [phone] Sera Vences OD [address] [place] [address] documented as of this encounter Visit Diagnoses Not on filedocumented in this encounter Care Teams Steward/Stewardess Chief Cargo Vessel Relationship Specialty Start Date End Date Sera Son MD [address] [place] [address] PCP - General Internal Medicine 11/28/10 documented as of this encounter
--- OUTSIDE RECORDS SUMMARY | 2024-05-02 14:58 | XMS_ITS | Encounter Summary ---
Author Organization [facility] Address [address] [place] [address] Care Team Providers Care Side Stitching Machine Operator Name Role Phone Sera Son MD Primary Care Provider +1- [phone] Encounter Details Date Type Department Care Team (Latest Contact Info) Description 12/27/1999 Orders Only Souleymane Dangelo MD [address] [place] [address] Social History Tobacco Use Types Packs/Day Years Used Date Smoking Tobacco: Never Assessed Sex and Gender Information Value Date Recorded Sex Assigned at Not on file Gender Identity Not on file Sexual Orientation Not on file documented as of this encounter Plan of Treatment Upcoming Encounters Date Type Department Care Team (Late st Contact Info) Description 01/11/2025 9:30 AM CDT Appointment [facility] [address] [facility]. [place], [place] [phone] Sera Vences, REYNOLD [address] [place], [place] [phone] documented as of this encounter Visit Diagnoses Not on filedocumented in this encounter Care Teams Side Stitching Machine Operator Relationship Specialty Start Date End Date Sera Son MD [address] [place] [address] PCP - General Internal Medicine 11/28/10 documented as of this encounter
--- OUTSIDE RECORDS SUMMARY | 2024-05-02 14:58 | XMS_ITS | Encounter Summary ---
Author Organization [facility] Address [address] [place] [address] Care Team Providers Care Intervention Specialist Name Role Phone Sera Son MD Primary Care Provider +1- [phone] Encounter Details Date Type Department Care Team (Latest Contact Info) Description 11/07/1998 Orders Only Souleymane Dangelo Social [...] Info) Description 01/11/2025 9:30 AM CDT Appointment [facility] [address] [facility]. [place], [place] [phone] Sera Vences OD [address] [place] [address] documented as of this encounter Visit Diagnoses Not on filedocumented in this encounter Care Teams Intervention Specialist Relationship Specialty Start Date End Date Sera Son MD [address] [place] [address] PCP - General Internal Medicine 11/28/10 documented as of this encounter
== END 2024-05-02 08:14 | disposition home or self-care (01) ==
LOC: NFLDREF 14:56
PROVIDERS: PCP Internal Medicine; Referring Provider Internal Medicine; Visit Provider Internal Medicine
DX: E78.5 Hyperlipidemia, unspecified (principal); R73.03 Prediabetes; I12.9 Hypertensive chronic kidney disease with stage 1 through stage 4 chronic kidney disease, or unspecified chronic kidney disease; N18.1 Chronic kidney disease, stage 1
CPT/HCPCS: 80048; 80061; 82043; 82570

== ENCOUNTER 2025-05-25 08:08 | Outpatient (CLI) | payer MEDICARE, BC, SELFPAY | END 2025-05-25 08:09 | disposition home or self-care (01) | LOC: NFLDREF 05-30 06:44 | PROVIDERS: PCP Internal Medicine; Referring Provider Internal Medicine; Visit Provider Internal Medicine | DX: R73.03 Prediabetes (principal); I12.9 Hypertensive chronic kidney disease with stage 1 through stage 4 chronic kidney disease, or unspecified chronic kidney disease; N18.1 Chronic kidney disease, stage 1; E78.5 Hyperlipidemia, unspecified | CPT/HCPCS: 80048; 80061; 82043; 82570 ==